=== PATIENT | female | born 1940 | race American Indian/Alaskan Native ===

== ENCOUNTER 2019-10-09 10:25 | Inpatient (IN) | payer MEDICARE ==
[2019-10-09] MEDS ORDERED: ALBUTEROL 2.5 MG/3 ML NEBU IH ONE ×2 (10:43→15:05)
[2019-10-09] MEDS ORDERED: SODIUM CHLORIDE 0.9% 250ML 250 ML IV ONE (10:45)
--- NOTE | 2019-10-09 10:48 | Emergency Department Report ---
ED General Adult HPI - General Chief complaint: Dyspnea/Respdistress Stated complaint: ANIL Time Seen by Provider: 10/09/19 10:31 Source: family, EMS (verbal report received from emergency medical services. EMS documentation not available at time of chart dictation ), RN notes reviewed Mode of arrival: Stretcher Limitations: Altered Mental Status, Physical Limitation - History of Present Illness Initial comments: This is a 79-year-old female. This patient is not known to this provider previously. History obtained primarily by speaking to her daughter, Mrs. Jane Bermeo; [phone], and by speaking to hospice nurse care textile designs sales representative The patient reportedly has a history of dementia. She also appears to have a history of hypertension, and thyroid derangement as well as diabetes. EMS verbally reported that she was DO NOT RESUSCITATE, DO NOT INTUBATE. Apparently, the patient aspirated while at her [facility]. She was found to be hypoxic in the field. There is no indication of trauma. Upon arrival to the emergency room, the patient is awake, moving 4 extremities, but does not follow commands. Her daughter shortly presented thereafterwards. Currently, as per the daughter, the patient is a full code. Otherwise, the daughter is not certain of long-term goals of care, such as chronic supplemental oxygen, or tube feedings. No additional history is available at this time. Patient not able to describe exacerbating or relieving factors. Her hypoxia improved with supplemental oxygen, and high flow nasal cannula therapy. -: This morning Radiation: other Quality: other Consistency: other Improves with: other Worsens with: other - Related Data Home Medications Medication Instructions Recorded Confirmed Last Taken Aspirin EC [Halfprin EC] 81 mg PO DAILY 10/18/14 10/09/19 10/18/14 81 Calcium Carbonate [Calcium] 600 mg PO DAILY 10/18/14 10/09/19 10/18/14 600 Donepezil [Aricept] 10 mg PO DAILY 10/18/14 10/09/19 10/18/14 10 hydroCHLOROthiazide [Hctz] 25 mg PO DAILY 10/18/14 10/09/19 10/18/14 25 metFORMIN [Glucophage] 500 mg PO BID 10/18/14 10/09/19 10/18/14 500 Cetirizine 10mg chew 10 mg PO DAILY 10/09/19 10/09/19 Unknown Lasix TAB 20 mg PO DAILY 10/09/19 10/09/19 Unknown Losartan 25 mg PO DAILY 10/09/19 10/09/19 Unknown Memantine 5 mg PO BID 10/09/19 10/09/19 Unknown Methimazole 10 mg PO TID 10/09/19 10/09/19 Unknown Mirtazapine 15 mg PO HS 10/09/19 10/09/19 Unknown QUEtiapine 25 mg PO HS 10/09/19 10/09/19 Unknown Simvastatin 40 mg PO DAILY 10/09/19 10/09/19 Unknown Allergies Allergy/AdvReac Type Severity Reaction Status Date / Time No Known Allergies Allergy Unverified 10/18/14 13:16 ED Review of Systems ROS: Stated complaint: ANIL Other details as noted in HPI Comment: Unobtainable due to pts medical conditions ED Past Medical Hx - Past Medical History Previous Medical History?: Yes Hx Hypertension: Yes Hx Diabetes: Yes Hx Dementia: Yes Additional medical history: Hyperlipidemia, nonverbal, puree diet - Surgical History Past Surgical History?: Yes Additional Surgical History: Hernia repair, and . - Social History Smoking Status: Never Smoker Substance Use Type: None - Medications Home Medications: Home Medications Medication Instructions Recorded Confirmed Last Taken Type Aspirin EC [Halfprin EC] 81 mg PO DAILY 10/18/14 10/09/19 10/18/14 History 81 Calcium Carbonate [Calcium] 600 mg PO DAILY 10/18/14 10/09/19 10/18/14 History 600 Donepezil [Aricept] 10 mg PO DAILY 10/18/14 10/09/19 10/18/14 History 10 hydroCHLOROthiazide [Hctz] 25 mg PO DAILY 10/18/14 10/09/19 10/18/14 History 25 metFORMIN [Glucophage] 500 mg PO BID 10/18/14 10/09/19 10/18/14 History 500 Cetirizine 10mg chew 10 mg PO DAILY 10/09/19 10/09/19 Unknown History Lasix TAB 20 mg PO DAILY 10/09/19 10/09/19 Unknown History Losartan 25 mg PO DAILY 10/09/19 10/09/19 Unknown History Memantine 5 mg PO BID 10/09/19 10/09/19 Unknown History Methimazole 10 mg PO TID 10/09/19 10/09/19 Unknown History Mirtazapine 15 mg PO HS 10/09/19 10/09/19 Unknown History QUEtiapine 25 mg PO HS 10/09/19 10/09/19 Unknown History Simvastatin 40 mg PO DAILY 10/09/19 10/09/19 Unknown History ED Physical Exam - General Limitations: Physical Limitation General appearance: alert - Head Head exam: Present: atraumatic, normocephalic - Eye Eye exam: Present: normal appearance - ENT ENT exam: Present: mucous membranes moist, normal external ear exam - Neck Neck exam: Present: normal inspection, full ROM. Absent: tenderness, meningismus - Respiratory Respiratory exam: Present: respiratory distress, rhonchi - Cardiovascular Cardiovascular Exam: Present: normal rhythm, tachycardia, normal heart sounds. Absent: systolic murmur, diastolic murmur, rubs, gallop - GI/Abdominal GI/Abdominal exam: Present: soft. Absent: distended, tenderness, guarding, rebound, rigid, pulsatile mass - Extremities Exam Extremities exam: Present: normal inspection, pedal edema, other (2+ pulses no rosa isela in the bilateral upper, lower extremities. There is no long bone tenderness. Musculoskeletal compartments are soft. The pelvis is stable.). Absent: calf tenderness - Back Exam Back exam: Present: normal inspection. Absent: tenderness, CVA tenderness (R), CVA tenderness (L), paraspinal tenderness, vertebral tenderness - Neurological Exam Neurological exam: Present: other (the patient is awake. The patient is moving 4 extremities. The patient has dementia) - Psychiatric Psychiatric exam: Present: other (the patient is nonverbal) - Skin Skin exam: Present: warm, dry, intact, normal color. Absent: rash ED Course Vital Signs 10/09/19 10/09/19 10/09/19 10:37 11:52 11:57 Temperature 98 F 98.8 F Pulse Rate 115 H Pulse Rate [ Bilateral] Respiratory 18 Rate Respiratory Rate [Bilateral ] Blood Pressure 120/57 [left arm] O2 Sat by Pulse 87 100 Oximetry 10/09/19 10/09/19 12:00 12:02 Temperature 98.8 F Pulse Rate 110 H Pulse Rate [ 111 H Bilateral] Respiratory 20 Rate Respiratory 20 Rate [Bilateral ] Blood Pressure 113/57 [left arm] O2 Sat by Pulse 100 Oximetry ED Medical Decision Making - Lab Data Result diagrams: 10/09/19 10:48 10/09/19 10:48 Vital Signs 10/09/19 10/09/19 10/09/19 10:37 11:52 11:57 Temperature 98 F 98.8 F Pulse Rate 115 H Pulse Rate [ Bilateral] Respiratory 18 Rate Respiratory Rate [Bilateral ] Blood Pressure 120/57 [left arm] O2 Sat by Pulse 87 100 Oximetry 10/09/19 10/09/19 12:00 12:02 Temperature 98.8 F Pulse Rate 110 H Pulse Rate [ 111 H Bilateral] Respiratory 20 Rate Respiratory 20 Rate [Bilateral ] Blood Pressure 113/57 [left arm] O2 Sat by Pulse 100 Oximetry Lab Results 10/09/19 10/09/19 10/09/19 Range/Units 10:48 10:48 10:48 WBC (4.5-11.0) K/mm3 RBC (3.65-5.03) M/mm3 Hgb (10.1-14.3) gm/dl Hct (30.3-42.9) % MCV (79-97) fl MCH (28-32) pg MCHC (30-34) % RDW (13.2-15.2) % Plt Count (140-440) K/mm3 Lymph % (Auto) (13.4-35.0) % [place] % (Auto) (0.0-7.3) % Eos % (Auto) (0.0-4.3) % Baso % (Auto) (0.0-1.8) % Lymph # (1.2-5.4) K/mm3 [place] # (0.0-0.8) K/mm3 Eos # (0.0-0.4) K/mm3 Baso # (0.0-0.1) K/mm3 Seg Neutrophils % (40.0-70.0) % Seg Neutrophils # (1.8-7.7) K/mm3 PT (12.2-14.9) Sec. INR (0.87-1.13) APTT (24.2-36.6) Sec. Sodium 149 H (137-145) mmol/L Potassium 3.7 (3.6-5.0) mmol/L Chloride 106.1 (98-107) mmol/L Carbon Dioxide 20 L (22-30) mmol/L Anion Gap 27 mmol/L BUN 45 H (7-17) mg/dL Creatinine 2.0 H (0.7-1.2) mg/dL Estimated GFR 29 ml/min BUN/Creatinine Ratio 23 % Glucose 150 H (65-100) mg/dL Lactic Acid 2.20 H* (0.7-2.0) mmol/L Calcium 10.2 (8.4-10.2) mg/dL Magnesium 2.00 (1.7-2.3) mg/dL Total Bilirubin 0.60 (0.1-1.2) mg/dL AST 18 (5-40) units/L ALT 21 (7-56) units/L Alkaline Phosphatase 81 (35-129) units/L Total Creatine Kinase 91 (30-135) units/L Total Protein 8.0 (6.3-8.2) g/dL Albumin 4.1 (3.9-5) g/dL Albumin/Globulin Ratio 1.1 % TSH 50.740 H (0.270-4.200) mlU/mL 10/09/19 10/09/19 Range/Units 10:48 10:48 WBC 10.1 (4.5-11.0) K/mm3 RBC 4.34 (3.65-5.03) M/mm3 Hgb 13.0 (10.1-14.3) gm/dl Hct 40.7 (30.3-42.9) % MCV 94 (79-97) fl MCH 30 (28-32) pg MCHC 32 (30-34) % RDW 14.6 (13.2-15.2) % Plt Count 423 (140-440) K/mm3 Lymph % (Auto) 23.3 (13.4-35.0) % [place] % (Auto) 7.6 H (0.0-7.3) % Eos % (Auto) 0.3 (0.0-4.3) % Baso % (Auto) 0.8 (0.0-1.8) % Lymph # 2.4 (1.2-5.4) K/mm3 [place]clean # 0.8 (0.0-0.8) K/mm3 Eos # 0.0 (0.0-0.4) K/mm3 Baso # 0.1 (0.0-0.1) K/mm3 Seg Neutrophils % 68.0 (40.0-70.0) % Seg Neutrophils # 6.9 (1.8-7.7) K/mm3 PT 13.3 (12.2-14.9) Sec. INR 1.02 (0.87-1.13) APTT 25.1 (24.2-36.6) Sec. Sodium (137-145) mmol/L Potassium (3.6-5.0) mmol/L Chloride (98-107) mmol/L Carbon Dioxide (22-30) mmol/L Anion Gap mmol/L BUN (7-17) mg/dL Creatinine (0.7-1.2) mg/dL Estimated GFR ml/min BUN/Creatinine Ratio % Glucose (65-100) mg/dL Lactic Acid (0.7-2.0) mmol/L Calcium (8.4-10.2) mg/dL Magnesium (1.7-2.3) mg/dL Total Bilirubin (0.1-1.2) mg/dL AST (5-40) units/L ALT (7-56) units/L Alkaline Phosphatase (35-129) units/L Total Creatine Kinase (30-135) units/L Total Protein (6.3-8.2) g/dL Albumin (3.9-5) g/dL Albumin/Globulin Ratio % TSH (0.270-4.200) mlU/mL - EKG Data 10/09/19 12:34 There is no prior EKG available for comparison. The EKG shows a left axis deviation, left anterior fascicular block, question incomplete right bundle- branch block, motion artifact, QTC prolonged, the EKG is abnormal, there is no prior for comparison, the EKG is not consistent with a STEMI - Radiology Data Radiology results: pending, report reviewed, image reviewed X-ray of the chest is negative for acute disease - Medical Decision Making Differential diagnosis, including not limited to: Hypothyroidism, renal insu fficiency, respiratory failure, dementia, pneumonia, urinary tract infection Assessment and plan: 79-year-old female, profound dementia, poor historian, with hypoxemic respiratory failure, saturating and high 70s on room air, currently protecting her airway at this time, requires initiation of high flow high- humidity nasal cannula therapy. Long discussion have with family to discuss goals of care and advanced directives. Currently, patient is a full code. Family amenable to supplemental oxygen, IV fluids and supportive care at this time. Daughter is specifically instructed to perform endotracheal intubation and chest compressions of necessary. This is witnessed by nurse Deborah. Hospital physician, Dr. Villalba to accept for the aforementioned. Critical Care Time: Yes Critical care time in (mins) excluding proc time.: 35 Critical care attestation.: If time is entered above; I have spent that time in minutes in the direct care of this critically ill patient, excluding procedure time. ED Disposition Clinical Impression: CHEN (acute kidney injury), Respiratory failure, Hypothyroidism, Dementia Disposition: DC-09 OP ADMIT IP TO THIS HOSP Is pt being admited?: Yes Condition: Poor
[2019-10-09 11:21] LABS: Basophils # (Auto) 0.1 K/mm3 (0.0-0.1); Basophils % (Auto) 0.8 % (0.0-1.8); Eosinophils % (Auto) 0.3 % (0.0-4.3); Hematocrit 40.7 % (30.3-42.9); Lymphocytes # (Auto) 2.4 K/mm3 (1.2-5.4); Lymphocytes % (Auto) 23.3 % (13.4-35.0); Mean Corpuscular HGB Conc 32 % (30-34); Mean Corpuscular Volume 94 fl (79-97); Monocytes # (Auto) 0.8 K/mm3 (0.0-0.8); Monocytes % (Auto) 7.6 % (0.0-7.3); Platelet Count 423 K/mm3 (140-440); Red Blood Count 4.34 M/mm3 (3.65-5.03); Red Cell Distribution Width 14.6 % (13.2-15.2)
--- NOTE | 2019-10-09 11:24 | XRay Report ---
CHEST 1 VIEW INDICATION / CLINICAL INFORMATION: sob. Dyspnea. COMPARISON: None available. FINDINGS: SUPPORT DEVICES: None. HEART / MEDIASTINUM: No significant abnormality. LUNGS / PLEURA: No significant pulmonary or pleural abnormality. No pneumothorax. ADDITIONAL FINDINGS: No significant additional findings. IMPRESSION: 1. No acute findings. Signer Name: Juan Jose Morales MD Signed: 10/09/2019 11:19 AM Workstation Name: [id number]
[2019-10-09 11:30] LABS: INR 1.02 (0.87-1.13)
[2019-10-09 11:31] LABS: Partial Thromboplastin Time 25.1 Sec. (24.2-36.6)
[2019-10-09 11:44] LABS: Albumin 4.1 g/dL (3.9-5); Calcium 10.2 mg/dL (8.4-10.2)
[2019-10-09] MEDS ORDERED: SODIUM CHLORIDE 0.9% 500 ML 500 ML IV ONE (11:47)
[2019-10-09] MEDS ORDERED: LEVOTHYROXINE 100 MCG INJ IV STA (12:05)
[2019-10-09] MEDS ORDERED: ALBUTEROL 2.5 MG/3 ML NEBU IH PRN (12:55)
--- NOTE | 2019-10-09 13:01 | History and Physical Report ---
History of Present Illness Chief complaint: She cant breathe History of present illness: 79 YO Female Hospice Care Patient with HTN, DM, Hyperthyroidism, Alzheimers Dementia, Encephalopathy, Nonverbal, Dysphagia, Debility presents to ED for evaluation. Pt is lethargic, using accessory muscles to breathe and unable to provide history. Pt daughter is at bedside during exam and interview and provides history. Pt daughter reports that the patient was in her usual state of health and became short of breath while eating breakfast and aspiration of gastric contents. EMS was notified, and upon arrival the patient was found to be hypoxemic with pulse oximetry in the 80's, as well as retained oral secretions in the oral pharynx. Pt airway was cleared, and the patient placed on supplemental oxygen and transported to [facility]. Pt seen and evaluated in ED and found to have Encephalopathy, Acute Hypoxemic Respiratory Failure as well as history and physical exam findings consistent with Aspiration Pneumonia. Pt placed on supplemental oxygen with mild improvement is pulse oximetry. Pt family revoke hospice benefit at time of admission and request aggressive medical care. Advanced care planning conducted in ED. Pt is a Full code. Pt admitted to [facility] and initiated on Pneumonia Protocol. No further history obtainable. No prior admission for review. All listed medication reconciled at time of admission. Past History Past Medical History: other (see HPI) Past Surgical History: , hernia repair Social history: . denies: smoking, alcohol abuse, prescription drug abuse Family history: hypertension Medications and Allergies Allergies Allergy/AdvReac Type Severity Reaction Status Date / Time No Known Allergies Allergy Unverified 10/18/14 13:16 Home Medications Medication Instructions Recorded Confirmed Last Taken Type Aspirin EC [Halfprin EC] 81 mg PO DAILY 10/18/14 10/09/19 10/18/14 History 81 Calcium Carbonate [Calcium] 600 mg PO DAILY 10/18/14 10/09/19 10/18/14 History 600 Donepezil [Aricept] 10 mg PO DAILY 10/18/14 10/09/19 10/18/14 History 10 hydroCHLOROthiazide [Hctz] 25 mg PO DAILY 10/18/14 10/09/19 10/18/14 History 25 metFORMIN [Glucophage] 500 mg PO BID 10/18/14 10/09/19 10/18/14 History 500 Cetirizine 10mg chew 10 mg PO DAILY 10/09/19 10/09/19 Unknown History Lasix TAB 20 mg PO DAILY 10/09/19 10/09/19 Unknown History Losartan 25 mg PO DAILY 10/09/19 10/09/19 Unknown History Memantine 5 mg PO BID 10/09/19 10/09/19 Unknown History Methimazole 10 mg PO TID 10/09/19 10/09/19 Unknown History Mirtazapine 15 mg PO HS 10/09/19 10/09/19 Unknown History QUEtiapine 25 mg PO HS 10/09/19 10/09/19 Unknown History Simvastatin 40 mg PO DAILY 10/09/19 10/09/19 Unknown History Active Meds: Active Medications Albuterol (Proventil) 2.5 mg IH Q3HRT PRN PRN Reason: Shortness Of Breath Ceftriaxone Sodium (Rocephin/Ns 2 Gm/100 Ml) 2 gm in 100 mls @ 200 mls/hr IV Q24HR LEONARDO; Protocol Azithromycin 500 mg/ Sodium (Chloride) 250 mls @ 250 mls/hr IV Q24HR LEONARDO; Protocol Metronidazole (Flagyl 500 Mg/100 Ml) 500 mg in 100 mls @ 100 mls/hr IV Q8HR LEONARDO; Protocol Sodium Chloride (Sodium Chloride Flush Syringe 10 Ml) 10 ml IV BID LEONARDO Sodium Chloride (Sodium Chloride Flush Syringe 10 Ml) 10 ml IV PRN PRN PRN Reason: LINE FLUSH Review of Systems ROS unobtainable: due to mental status Exam - Constitutional Vitals: Temp Pulse Resp BP Pulse Ox 98.8 F 111 H 20 113/57 100 10/09/19 12:00 10/09/19 12:02 10/09/19 12:02 10/09/19 12:00 10/09/19 12:00 General appearance: Present: mild distress - EENT Eyes: Present: PERRL ENT: hearing intact, clear oral mucosa - Neck Neck: Present: supple, normal ROM - Respiratory Respiratory effort: normal Respiratory: bilateral: diminished, rhonchi - Cardiovascular Heart Sounds: Present: S1 & S2. Absent: rub, click - Extremities Extremities: pulses symmetrical, No edema Peripheral Pulses: within normal limits - Abdominal General gastrointestinal: Present: soft, non-tender, non-distended, normal bowel sounds Female genitourinary: Present: normal - Integumentary Integumentary: Present: clear, warm, dry - Musculoskeletal Musculoskeletal: generalized weakness - Psychiatric Psychiatric: no appropriate mood/affect, no intact judgment & insight, no memory intact - Neurologic Neurologic: CNII-XII intact, moves all extremities, no gait normal Results - Labs CBC & Chem 7: 10/09/19 10:48 10/09/19 10:48 Labs: Abnormal lab results 10/09/19 10/09/19 10/09/19 Range/Units 10:48 10:48 10:48 [place] % (Auto) (0.0-7.3) % Sodium 149 H (137-145) mmol/L Carbon Dioxide 20 L (22-30) mmol/L BUN 45 H (7-17) mg/dL Creatinine 2.0 H (0.7-1.2) mg/dL Glucose 150 H (65-100) mg/dL Lactic Acid 2.20 H* (0.7-2.0) mmol/L TSH 50.740 H (0.270-4.200) mlU/mL Free T4 (0.76-1.46) ng/dL 10/09/19 10/09/19 Range/Units 10:48 10:48 [place] % (Auto) 7.6 H (0.0-7.3) % Sodium (137-145) mmol/L Carbon Dioxide (22-30) mmol/L BUN (7-17) mg/dL Creatinine (0.7-1.2) mg/dL Glucose (65-100) mg/dL Lactic Acid (0.7-2.0) mmol/L TSH (0.270-4.200) mlU/mL Free T4 0.40 L (0.76-1.46) ng/dL Assessment and Plan - Patient Problems (1) Aspiration pneumonia Current Visit: Yes Status: Acute Qualifiers: Lung location: unspecified part of lung Plan to address problem: Pneumonia Protocol: Chest X ray, IV antibiotic therapy, IVF resuscitation therapy, CBC, CMP, Blood Cultures, Supplemental oxygen, NIPPV as clinically indicated, (2) Hyperthyroidism Current Visit: Yes Status: Acute Plan to address problem: continue methimazole, supportive care. (3) Encephalopathy Current Visit: Yes Status: Acute Plan to address problem: CT head, neuro check, aspiration precautions, (4) Acidosis Current Visit: Yes Status: Acute Plan to address problem: IVF resuscitation therapy, repeat BMP (5) CHEN (acute kidney injury) Current Visit: Yes Status: Acute Plan to address problem: IVF resuscitation therapy, monitor uop q shift, bmp in am to monitor serum creatnine (6) Respiratory failure Current Visit: Yes Status: Acute Qualifiers: Chronicity: acute Respiratory failure complication: hypoxia Qualified Code(s): J96.01 - Acute respiratory failure with hypoxia Plan to address problem: Supplemental oxygen, nebulizer therapy, NIPPV as clinically indicated, chest x ray, pulse oximetry, NIPPV as clinically indicated, (7) Advance care planning Current Visit: Yes Status: Acute Plan to address problem: Pt family revoked hospice benefit and request aggressive medical care. Pt code states discussed: Pt is Full Code. Poor prognosis discussed with daughter. Pt daughter acknowledges understanding and agreement with care plan. +30 minutes (8) DVT prophylaxis Current Visit: Yes Status: Acute Plan to address problem: SCD to BLE while in bed, prophylactic heparin
[2019-10-09 13:02] LABS: Bilirubin,Urine NEG (Negative); Blood,Urine NEG (Negative); Color,Urine Yellow (Yellow); Mucus,Urine FEW /HPF; Urobilinogen,Urine < 2.0 mg/dL (<2.0)
[2019-10-09] MEDS ORDERED: METHIMAZOLE 10 MG PO SCH (14:00)
[2019-10-09] MEDS ORDERED: DEXTROSE 50% IN WATER (25GM) 50 ML SYRINGE IV PRN (14:07)
[2019-10-09] MEDS ORDERED: metroNIDAZOLE/NS 500 MG/100 ML 500 MG/100 ML BAG IV ONE (14:07)
[2019-10-09] MEDS: metroNIDAZOLE/NS 500 MG/100 ML 500 MG/100 ML BAG IV SCH ×2 (15:05→22:20)
[2019-10-09] MEDS: INSULIN LISPRO 100 UNIT/ML SUB-Q SCH ×2 (17:14→22:02)
--- NOTE | 2019-10-09 17:39 | Event Note ---
Date: 10/09/19 Notified by Nursing staff, that patient daughter wishes to make patient DNR. DNR signed and placed on chart
[2019-10-09] MEDS ORDERED: QUETIAPINE 25 MG PO SCH (22:00)
[2019-10-09] MEDS ORDERED: NON-FORMULARY EACH (Memantine 5 MG) PO SCH (22:00)
[2019-10-09] MEDS ORDERED: MIRTAZAPINE 15 MG SOLUTAB PO SCH (22:00)
[2019-10-09] MEDS ORDERED: MIRTAZAPINE 15 MG PO SCH (22:00)
[2019-10-09] MEDS: methIMAzole 5 MG TAB PO SCH (22:19)
[2019-10-09] MEDS: HEPARIN 5,000 UNIT/1 ML VIAL SUB-Q SCH (22:20)
[2019-10-09] MEDS: QUEtiapine 25 MG TAB PO SCH (22:23)
[2019-10-09] MEDS: MEMANTINE 5 MG TAB PO SCH (22:23)
[2019-10-10 05:55] LABS: Basophils # (Auto) 0.1 K/mm3 (0.0-0.1); Basophils % (Auto) 0.6 % (0.0-1.8); Eosinophils % (Auto) 0.4 % (0.0-4.3); Hematocrit 36.1 % (30.3-42.9); Hemoglobin 11.6 gm/dl (10.1-14.3); Lymphocytes # (Auto) 1.9 K/mm3 (1.2-5.4); Lymphocytes % (Auto) 17.6 % (13.4-35.0); Mean Corpuscular HGB Conc 32 % (30-34); Mean Corpuscular Volume 94 fl (79-97); Monocytes # (Auto) 0.7 K/mm3 (0.0-0.8); Monocytes % (Auto) 6.9 % (0.0-7.3); Platelet Count 361 K/mm3 (140-440); Red Blood Count 3.84 M/mm3 (3.65-5.03); Red Cell Distribution Width 14.5 % (13.2-15.2)
[2019-10-10 06:20] LABS: Calcium 9.6 mg/dL (8.4-10.2)
[2019-10-10] MEDS: metroNIDAZOLE/NS 500 MG/100 ML 500 MG/100 ML BAG IV SCH ×3 (07:02→22:27)
[2019-10-10] MEDS ORDERED: CETIRIZINE 10 MG PO SCH (10:00)
[2019-10-10] MEDS ORDERED: CALCIUM CARBONATE 1250 MG TAB PO SCH (10:00)
[2019-10-10] MEDS ORDERED: LOSARTAN 25 MG TAB PO SCH (10:00)
[2019-10-10] MEDS ORDERED: NON-FORMULARY EACH (Simvastatin 40 MG) PO SCH (10:00)
[2019-10-10] MEDS ORDERED: NON-FORMULARY EACH (Losartan 25 MG) PO SCH (10:00)
[2019-10-10] MEDS: cefTRIAXone/NS 2 GM/100 ML 2 GM/100 ML BAG IV SCH (11:10)
[2019-10-10] MEDS: QUEtiapine 25 MG TAB PO SCH ×2 (11:11→11:24)
[2019-10-10] MEDS: ASPIRIN EC 81 MG TAB PO SCH ×2 (11:11→11:27)
[2019-10-10] MEDS: LORATADINE (NF) 10 MG TAB PO SCH ×2 (11:13→11:29)
[2019-10-10] MEDS: HEPARIN 5,000 UNIT/1 ML VIAL SUB-Q SCH (11:13)
[2019-10-10] MEDS: MEMANTINE 5 MG TAB PO SCH ×3 (11:14→22:23)
[2019-10-10] MEDS: hydroCHLOROthiazide 25 MG TAB PO SCH ×2 (11:14→11:28)
[2019-10-10] MEDS: DONEPEZIL 10 MG TAB PO SCH ×2 (11:14→11:27)
[2019-10-10] MEDS: CALCIUM CARBONATE 1250 MG TAB PO SCH (11:15)
[2019-10-10] MEDS: PRAVASTATIN 80 MG TAB PO SCH (11:15)
[2019-10-10] MEDS: methIMAzole 5 MG TAB PO SCH ×2 (11:17→22:24)
[2019-10-10] MEDS: INSULIN LISPRO 100 UNIT/ML SUB-Q SCH ×2 (11:20→11:55)
[2019-10-10] MEDS: AZITHROMYCIN 500 MG in SODIUM CHLORIDE 0.9% 250ML 250 ML IV SCH (11:37)
--- NOTE | 2019-10-10 14:59 | Progress Note ---
Assessment and Plan Assessment and plan: 79-year-old woman who was sent from assisted living facility. They related that she had been choking and was having trouble breathing. Past medical history; dementia, hypertension, thyroid disorder, diabetes, she is DNR at her assisted living facility Chest x-ray no acute findings Hyperthyroidism tfts show elevated TSH at 50 and low free T4 at 0.4. When patient able to tolerate p.o., her methimazole dose will be reduced acute metabolic encephalopathy supportive care obtain EEG, CTH and MRI, neuro consult CHEN/hyponatremia Continue D5w Renal function improving acute hypoxic Respiratory failure cont venti mask repeat CXR, was suspected to have aspiration pneumonia by admitting physician. Continue antibiotics for now, obtain CT chest if CXR is again neg DVT prophylaxis with Lovenox History Interval history: Review of systems Constitutional: No fevers, no malaise, no joint pains CVS: No chest pain, no orthopnea, no pedal edema GI: No abdominal pain, no diarrhea, no vomiting, no constipation Respiratory: , has had rhoncorus breath sounds, no cough, remains on [place] [facility] Physical - Physical exam Narrative exam: General.: Appears well, no distress, nontoxic HEENT: dry mucus membranes Neck: supple Cardiac: S1-S2 heard Lungs: rhonchi Abdomen: soft , nontender, nondistended, bowel sounds positive Extremities: no edema clubbing or cyanosis Skin: no rash or lesions Neurologic: opens eyes, otherwise minimally arousable, appears comfortable Psych: calm - Constitutional Vitals: Temp Pulse Resp BP Pulse Ox 98.1 F 59 L 13 93/51 100 10/10/19 04:00 10/10/19 10:00 10/10/19 04:00 10/10/19 10:00 10/10/19 04:00 General appearance: Present: mild distress Results - Labs CBC & Chem 7: 10/10/19 05:41 10/10/19 05:41 Labs: Laboratory Last Values WBC 10.8 K/mm3 (4.5-11.0) 10/10/19 05:41 RBC 3.84 M/mm3 (3.65-5.03) 10/10/19 05:41 Hgb 11.6 gm/dl (10.1-14.3) 10/10/19 05:41 Hct 36.1 % (30.3-42.9) 10/10/19 05:41 MCV 94 fl (79-97) 10/10/19 05:41 MCH 30 pg (28-32) 10/10/19 05:41 MCHC 32 % (30-34) 10/10/19 05:41 RDW 14.5 % (13.2-15.2) 10/10/19 05:41 Plt Count 361 K/mm3 (140-440) 10/10/19 05:41 Lymph % (Auto) 17.6 % (13.4-35.0) 10/10/19 05:41 Snyder % (Auto) 6.9 % (0.0-7.3) 10/10/19 05:41 Eos % (Auto) 0.4 % (0.0-4.3) 10/10/19 05:41 Baso % (Auto) 0.6 % (0.0-1.8) 10/10/19 05:41 Lymph # 1.9 K/mm3 (1.2-5.4) 10/10/19 05:41 Snyder # 0.7 K/mm3 (0.0-0.8) 10/10/19 05:41 Eos # 0.0 K/mm3 (0.0-0.4) 10/10/19 05:41 Baso # 0.1 K/mm3 (0.0-0.1) 10/10/19 05:41 Seg Neutrophils % 74.5 % (40.0-70.0) H 10/10/19 05:41 Seg Neutrophils # 8.1 K/mm3 (1.8-7.7) H 10/10/19 05:41 PT 13.3 Sec. (12.2-14.9) 10/09/19 10:48 INR 1.02 (0.87-1.13) 10/09/19 10:48 APTT 25.1 Sec. (24.2-36.6) 10/09/19 10:48 Sodium 152 mmol/L (137-145) H 10/10/19 05:41 Potassium 4.1 mmol/L (3.6-5.0) 10/10/19 05:41 Chloride 109.3 mmol/L (98-107) H 10/10/19 05:41 Carbon Dioxide 24 mmol/L (22-30) 10/10/19 05:41 Anion Gap 23 mmol/L 10/10/19 05:41 BUN 35 mg/dL (7-17) H 10/10/19 05:41 Creatinine 1.3 mg/dL (0.7-1.2) H 10/10/19 05:41 Estimated GFR 48 ml/min 10/10/19 05:41 BUN/Creatinine Ratio 27 % 10/10/19 05:41 Glucose 125 mg/dL (65-100) H 10/10/19 05:41 POC Glucose 130 (70-105) H 10/09/19 23:06 Lactic Acid 2.10 mmol/L (0.7-2.0) H* 10/09/19 16:01 Calcium 9.6 mg/dL (8.4-10.2) 10/10/19 05:41 Magnesium 2.00 mg/dL (1.7-2.3) 10/09/19 10:48 Total Bilirubin 0.60 mg/dL (0.1-1.2) 10/09/19 10:48 AST 18 units/L (5-40) 10/09/19 10:48 ALT 21 units/L (7-56) 10/09/19 10:48 Alkaline Phosphatase 81 units/L (35-129) 10/09/19 10:48 Total Creatine Kinase 91 units/L (30-135) 10/09/19 10:48 Total Protein 8.0 g/dL (6.3-8.2) 10/09/19 10:48 Albumin 4.1 g/dL (3.9-5) 10/09/19 10:48 Albumin/Globulin Ratio 1.1 % 10/09/19 10:48 TSH 50.740 mlU/mL (0.270-4.200) H 10/09/19 10:48 Free T4 0.40 ng/dL (0.76-1.46) L 10/09/19 10:48 Urine Color Yellow (Yellow) 10/09/19 12:00 Urine Turbidity Slightly-cloudy (Clear) 10/09/19 12:00 Urine pH 5.0 (5.0-7.0) 10/09/19 12:00 Ur Specific [place] 1.017 (1.003-1.030) 10/09/19 12:00 Urine Protein 30 mg/dl mg/dL (Negative) 10/09/19 12:00 Urine Glucose (UA) Neg mg/dL (Negative) 10/09/19 12:00 Urine Ketones Neg mg/dL (Negative) 10/09/19 12:00 Urine Blood Neg (Negative) 10/09/19 12:00 Urine Nitrite Neg (Negative) 10/09/19 12:00 Urine Bilirubin Neg (Negative) 10/09/19 12:00 Urine Urobilinogen < 2.0 mg/dL (<2.0) 10/09/19 12:00 Ur Leukocyte Esterase Neg (Negative) 10/09/19 12:00 Urine WBC (Auto) 1.0 /HPF (0.0-6.0) 10/09/19 12:00 Urine RBC (Auto) 2.0 /HPF (0.0-6.0) 10/09/19 12:00 U Epithel Cells (Auto) 4.0 /HPF (0-13.0) 10/09/19 12:00 Urine Mucus Few /HPF 10/09/19 12:00 Active Medications - Current Medications Current Medications: Generic Name Dose Route Start Last Admin Trade Name Freq PRN Reason Stop Dose Admin Albuterol 2.5 mg 10/09/19 12:55 Proventil IH Q3HRT PRN Shortness Of Breath Aspirin 81 mg 10/10/19 10:00 10/10/19 11:27 Halfprin Ec PO Not Given DAILY LEONARDO Calcium Carbonate/Glycine 1,250 mg 10/10/19 10:00 10/10/19 11:15 Oscal PO 1,250 mg QDAY LEONARDO Administration Dextrose 50 ml 10/09/19 14:07 D50w (25gm) Syringe IV Q30MIN PRN Hypoglycemia Protocol Donepezil HCl 10 mg 10/10/19 10:00 10/10/19 11:27 Aricept PO Not Given DAILY LEONARDO Heparin Sodium (Porcine) 5,000 unit 10/09/19 22:00 10/10/19 11:13 Heparin SUB-Q 5,000 unit Q12HR LEONARDO Administration Hydrochlorothiazide 25 mg 10/10/19 10:00 10/10/19 11:28 Hctz PO Not Given DAILY LEONARDO Ceftriaxone Sodium 2 gm in 100 mls @ 200 mls/hr 10/10/19 10:00 10/10/19 11:10 Rocephin/Ns 2 Gm/100 Ml IV 200 mls/hr Q24HR LEONARDO Administration Protocol Azithromycin 500 mg/ Sodium 250 mls @ 250 mls/hr 10/10/19 10:00 10/10/19 11:37 Chloride IV 250 mls/hr Q24HR LEONARDO Administration Protocol Metronidazole 500 mg in 100 mls @ 100 mls/hr 10/09/19 14:00 10/10/19 07:02 Flagyl 500 Mg/100 Ml IV 100 mls/hr Q8HR LEONARDO Administration Protocol Dextrose 1,000 mls @ 100 mls/hr 10/10/19 11:00 D5w IV DIRECT [facility] Insulin Human Lispro 0 unit 10/09/19 16:30 10/10/19 11:20 Humalog SUB-Q Not Given ACHS [facility] Protocol Loratadine 10 mg 10/10/19 10:00 10/10/19 11:29 Claritin PO Not Given DAILY [facility] Losartan Potassium 25 mg 10/10/19 10:00 10/10/19 10:00 Cozaar PO Not Given QDAY [facility] Memantine 5 mg 10/09/19 22:00 10/10/19 11:22 Memantine PO Not Given BID LEONARDO Methimazole 5 mg 10/10/19 22:00 Tapazole PO Q8HR [facility] Mirtazapine 15 mg 10/09/19 22:00 10/09/19 22:23 Remeron Solutab PO Not Given QHS [facility] Pravastatin Sodium 80 mg 10/10/19 10:00 10/10/19 11:15 Pravachol PO 80 mg QDAY [facility] Administration Quetiapine Fumarate 25 mg 10/09/19 22:00 10/10/19 11:24 Seroquel PO Not Given BID LEONARDO Sodium Chloride 10 ml 10/09/19 22:00 10/10/19 11:16 Sodium Chloride Flush Syringe 10 Ml IV 10 ml BID LEONARDO Administration Sodium Chloride 10 ml 10/09/19 12:55 Sodium Chloride Flush Syringe 10 Ml IV PRN PRN LINE FLUSH Nutrition/Malnutrition Assess - Dietary Evaluation Nutrition/Malnutrition Findings: Nutrition Notes Start: 10/10/19 10:31 Freq: Status: Active Protocol: Document 10/10/19 10:32 LM (Rec: 10/10/19 10:55 LM [id number]) Nutrition Notes Need for Assessment generated from: implementation coordinator Initial or Follow up Assessment Current Diagnosis Acute Kidney Injury,Decubitus( Pressure Ulcer),Diabetes, Hypertension,Respiratory Failure Other Pertinent Diagnosis Sacral wound, dementia, encephalopathy, debility, pneu Current Diet NPO Labs/Tests Na 152 BUN 35 Cr 1.3 BG 125 Pertinent Medications Reviewed Height 4 ft 6 in Weight 60.2 kg [place] Body Weight (kg) 31.81 BMI 32.0 Subjective/Other Information RN screen for MST, difficulty chewing, and skin risk. Kiet score of 12, pt with sacral wound. Pt non verbal and no family present at time of visit to obtain information. Pt NPO. Pt with chewing and swallowing difficulties documented in chart and pt was unable to complete swallow eval. Burn Absent Trauma Absent Difficulty In Swallowing,Chewing Minimum of two criteria No physical signs of malnutrition #2 Nutrition Diagnosis Inadequate oral intake Etiology pt with possible chewing and swallowing difficulties, unable to complete swallow eval As Evidenced by Signs and Symptoms pt NPO #1 Nutrition Diagnosis Increased nutrient needs ( specify in comment below) Comments: protein Etiology wound healing As Evidenced by Signs and Symptoms sacral wound Is patient on ventilator? No Is Patient Ambulatory and/or Out of Bed No REE-([facility]-confined to bed) [phone] Calculation Used for Recommendations [facility] Additional Notes Protein: 37-69g (0.8-1.5g/kg) AdjBw 46kg pt with CHEN and wound Fluid: 1 ml/kcal or per MD Nutrition Intervention Change Diet Order: Diet advancement when medically feasible Goal #1 Diet advancement Anticipated Discharge Needs: unable to determine at this time Follow-Up By: 10/12/19 Additional Comments F/U for diet advancent, MST screen if family present
--- NOTE | 2019-10-10 16:27 | XRay Report ---
CHEST 1 VIEW INDICATION / CLINICAL INFORMATION: hypoxia. COMPARISON: 10/09/2019 FINDINGS: SUPPORT DEVICES: None. HEART / MEDIASTINUM: No significant abnormality. LUNGS / PLEURA: No significant pulmonary or pleural abnormality.. No pneumothorax. ADDITIONAL FINDINGS: No significant additional findings. IMPRESSION: 1. No acute findings. Signer Name: Anthony Lamar MD Signed: 10/10/2019 4:23 PM Workstation Name: [id number]
--- NOTE | 2019-10-10 18:48 | Cat Scan Report ---
CT head/brain wo con INDICATION / CLINICAL INFORMATION: 79 years Female; ams. TECHNIQUE: Routine CT head without contrast. All CT scans at this location are performed using CT dos e reduction for ALARA by means of automated exposure control. COMPARISON: None. FINDINGS: BRAIN / INTRACRANIAL CONTENTS: There is advanced to cerebral atrophy with associated prominence of th e ventricular system. There is also moderate cerebral white matter disease most consistent with micro vascular angiopathy at. There is no clear CT evidence of acute intracranial hemorrhage or significant mass effect. The atrophic changes appear to most notably involving the temporal lobes at. ORBITS: No significant abnormality of visualized orbits. SINUSES / MASTOIDS: No significant abnormality the visualized paranasal sinuses or mastoid air cells. CRANIOCERVICAL JUNCTION: No significant abnormality. ADDITIONAL FINDINGS: There is mild incidental hyperostosis frontalis interna. The calvarium appears i ntact. IMPRESSION: 1. There is advanced to cerebral atrophy and moderate microvascular angiopathy as described without C T evidence of acute intracranial hemorrhage. Signer Name: Damion Leon MD Signed: 10/10/2019 6:44 PM Workstation Name: [id number]
--- NOTE | 2019-10-10 18:59 | Consultation ---
History of Present Illness Consult date: 10/10/19 Reason for Consult: Altered mental status Chief complaint: Altered mental status History of present illness: Patient is a 79 y/o woman w/ a h/o dementia, HTN, hyperthyroidism, DM, HLD. Patient was admitted due to aspiration, which occurred as she was eating yesterday. EMS arrived, and was able to clear patient's airway. She was brought to [facility] for further management. At baseline, patient reportedly is nonverbal, is only able to feed herself, however requires assistance with all other ADLs. 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 Past History Past Medical History: other (see HPI) Past Surgical History: , hernia repair Social history: . denies: smoking, alcohol abuse, prescription drug abuse Family history: hypertension Medications and Allergies Allergies Allergy/AdvReac Type Severity Reaction Status Date / Time No Known Allergies Allergy Unverified 10/18/14 13:16 Home Medications Medication Instructions Recorded Confirmed Last Taken Type Aspirin EC [Halfprin EC] 81 mg PO DAILY 10/18/14 10/09/19 10/18/14 History 81 Calcium Carbonate [Calcium] 600 mg PO DAILY 10/18/14 10/09/19 10/18/14 History 600 Donepezil [Aricept] 10 mg PO DAILY 10/18/14 10/09/19 10/18/14 History 10 hydroCHLOROthiazide [Hctz] 25 mg PO DAILY 10/18/14 10/09/19 10/18/14 History 25 metFORMIN [Glucophage] 500 mg PO BID 10/18/14 10/09/19 10/18/14 History 500 Cetirizine 10mg chew 10 mg PO DAILY 10/09/19 10/09/19 Unknown History Lasix TAB 20 mg PO DAILY 10/09/19 10/09/19 Unknown History Losartan 25 mg PO DAILY 10/09/19 10/09/19 Unknown History Memantine 5 mg PO BID 10/09/19 10/09/19 Unknown History Methimazole 10 mg PO TID 10/09/19 10/09/19 Unknown History Mirtazapine 15 mg PO HS 10/09/19 10/09/19 Unknown History QUEtiapine 25 mg PO HS 10/09/19 10/09/19 Unknown History Simvastatin 40 mg PO DAILY 10/09/19 10/09/19 Unknown History Active Meds: Active Medications Albuterol (Proventil) 2.5 mg IH Q3HRT PRN PRN Reason: Shortness Of Breath Aspirin (Halfprin Ec) 81 mg PO DAILY [facility] Last Admin: 10/10/19 11:27 Dose: Not Given Documented by: Calcium Carbonate/Glycine (Oscal) 1,250 mg PO QDAY [facility] Last Admin: 10/10/19 11:15 Dose: 1,250 mg Documented by: Dextrose (D50w (25gm) Syringe) 50 ml IV Q30MIN PRN; Protocol PRN Reason: Hypoglycemia Donepezil HCl (Aricept) 10 mg PO DAILY [facility] Last Admin: 10/10/19 11:27 Dose: Not Given Documented by: Enoxaparin Sodium (Enoxaparin) 30 mg SUB-Q QDAY@2200 LEONARDO Ceftriaxone Sodium (Rocephin/Ns 2 Gm/100 Ml) 2 gm in 100 mls @ 200 mls/hr IV Q24HR [facility]; Protocol Last Admin: 10/10/19 11:10 Dose: 200 mls/hr Documented by: Azithromycin 500 mg/ Sodium (Chloride) 250 mls @ 250 mls/hr IV Q24HR LEONARDO; Protocol Last Admin: 10/10/19 11:37 Dose: 250 mls/hr Documented by: Metronidazole (Flagyl 500 Mg/100 Ml) 500 mg in 100 mls @ 100 mls/hr IV Q8HR LEONARDO; Protocol Last Admin: 10/10/19 15:54 Dose: 100 mls/hr Documented by: Dextrose (D5w) 1,000 mls @ 100 mls/hr IV DIRECT LEONARDO Insulin Human Lispro (Humalog) 0 unit SUB-Q ACHS [facility]; Protocol Last Admin: 10/10/19 11:55 Dose: Not Given Documented by: Loratadine (Claritin) 10 mg PO DAILY [facility] Last Admin: 10/10/19 11:29 Dose: Not Given Documented by: Memantine (Memantine) 5 mg PO BID [facility] Last Admin: 10/10/19 11:22 Dose: Not Given Documented by: Methimazole (Tapazole) 5 mg PO Q8HR [facility] Pravastatin Sodium (Pravachol) 80 mg PO QDAY [facility] Last Admin: 10/10/19 11:15 Dose: 80 mg Documented by: Sodium Chloride (Sodium Chloride Flush Syringe 10 Ml) 10 ml IV BID LEONARDO Last Admin: 10/10/19 11:16 Dose: 10 ml Documented by: Sodium Chloride (Sodium Chloride Flush Syringe 10 Ml) 10 ml IV PRN PRN PRN Reason: LINE FLUSH Review of Systems ROS unobtainable: due to mental status Physical Examination - Vital Signs Vital Signs: Vital Signs Temp Pulse Resp BP Pulse Ox 98 F 115 H 18 120/57 87 10/09/19 10:37 10/09/19 10:37 10/09/19 10:37 10/09/19 10:37 10/09/19 10:37 - Physical Exam Narrative exam: Patient is lethargic, opens eyes to tactile stimulus. Does not follow commands. PERRL. Squeezes hand to hand. W/d to pain in all extremities. Spontaneous anti- gravity movement noted in all extremities. Reflexes 2+ throughout. - Constitutional General appearance: comfortable - EENT EENT: Present: ATNC, PERRL, mucous membranes moist - Respiratory Respiratory: Present: decreased breath sounds - Cardiovascular Cardiovascular: Present: regular rate, normal S1, normal S2 Extremities: Present: no clubbing, cyanosis, no inflammation - Gastrointestinal Gastrointestinal: Present: normoactive bowel sounds, soft, non-tender - Integumentary Integumentary: Present: normal - Musculoskeletal Musculoskeletal: Present: no fluid collection Results - Laboratory Findings CBC and BMP: 10/10/19 05:41 10/10/19 05:41 Abnormal Lab Findings: Abnormal Labs 10/09/19 10/09/19 10/09/19 10:48 10:48 10:48 Ashley % (Auto) Seg Neutrophils % Seg Neutrophils # Sodium 149 H Chloride Carbon Dioxide 20 L BUN 45 H Creatinine 2.0 H Glucose 150 H POC Glucose Lactic Acid 2.20 H* TSH 50.740 H Free T4 10/09/19 10/09/19 10/09/19 10:48 10:48 13:18 Ashley % (Auto) 7.6 H Seg Neutrophils % Seg Neutrophils # Sodium Chloride Carbon Dioxide BUN Creatinine Glucose POC Glucose Lactic Acid 2.60 H* TSH Free T4 0.40 L 10/09/19 10/09/19 10/09/19 16:01 17:21 23:06 Ashley % (Auto) Seg Neutrophils % Seg Neutrophils # Sodium Chloride Carbon Dioxide BUN Creatinine Glucose POC Glucose 124 H 130 H Lactic Acid 2.10 H* TSH Free T4 10/10/19 10/10/19 10/10/19 05:41 05:41 15:59 Ashley % (Auto) Seg Neutrophils % 74.5 H Seg Neutrophils # 8.1 H Sodium 152 H Chloride 109.3 H Carbon Dioxide BUN 35 H Creatinine 1.3 H Glucose 125 H POC Glucose 112 H Lactic Acid TSH Free T4 Assessment and Plan Patient is a 79 y/o woman w/ a h/o dementia, HTN, hyperthyroidism, DM, HLD, who p/w aspiration when eating. According to the patient's clinical findings, it is likely that she has metabolic encephalopathy. In support of this, patient has been found to have CHEN, acidosis, respiratory failure on admission. Plan: 1. Metabolic encephalopathy: - In setting of baseline advanced dementia, and found to have respiratory failure, aspiration, CHEN, acidosis. - CT head: no acute abnormalities - Continue to correct metabolic abnormalities per primary team - Will continue to monitor neurologic status Thank you for allowing me to take part in the care of this patient. Charly Santizo MD Neurology
[2019-10-10] MEDS ORDERED: ENOXAPARIN 40 MG/0.4 ML INJ SUB-Q SCH (22:00)
[2019-10-10] MEDS: ENOXAPARIN 30 MG/0.3 ML INJ SUB-Q SCH (22:27)
[2019-10-11] MEDS: INSULIN LISPRO 100 UNIT/ML SUB-Q SCH ×5 (01:12→22:46)
[2019-10-11] MEDS: methIMAzole 5 MG TAB PO SCH ×3 (06:40→22:45)
[2019-10-11] MEDS: metroNIDAZOLE/NS 500 MG/100 ML 500 MG/100 ML BAG IV SCH ×3 (07:43→22:47)
[2019-10-11] MEDS: cefTRIAXone/NS 2 GM/100 ML 2 GM/100 ML BAG IV SCH (10:45)
--- NOTE | 2019-10-11 10:49 | Progress Note ---
Assessment and Plan Assessment and plan: 79-year-old woman who was sent from assisted living facility. They related that she had been choking and was having trouble breathing. Past medical history; dementia, hypertension, thyroid disorder, diabetes, she is DNR at her assisted living facility Chest x-ray no acute findings Hyperthyroidism tfts show elevated TSH at 50 and low free T4 at 0.4. When patient able to tolerate p.o., her methimazole dose will be reduced acute metabolic encephalopathy supportive care, CT head neg, given dementia- daughter is not interested in MRI, she has refused obtain EEG, neuro consult appreciated, likely metabolic due to dehydration at baseline, she is non verbal, but is able to eat and is fully dependent, currently she only opens eyes occasionally and has not woken up Bruxism Ativan as needed CHEN/hyponatremia Continue D5w Renal function improving acute hypoxic Respiratory failure now weaned to NC repeat CXR is again negative, was suspected to have aspiration pneumonia by admitting physician, and assisted living facility believe that she had choked on food supporting the diagnosis of aspiration. Continue antibiotics for now, obtain CT chest, pulm consult DVT prophylaxis with Lovenox History Interval history: Neuro; apparently when the patient is alone in her room she opens her eyes and watches TV. And myself or the nurse enters the room. The patient closes her eyes, refuses to open her eyes or communicate, she has been grinding her teeth all day Review of systems Constitutional: No fevers, no malaise, no joint pains CVS: No chest pain, no orthopnea, no pedal edema GI: No abdominal pain, no diarrhea, no vomiting, no constipation Respiratory: , has had rhoncorus breath sounds, no cough, remains on [facility] Hospitalist Physical - Physical exam Narrative exam: General.: Appears well, no distress, nontoxic Wet sounds in her throat, appears to have trouble swallowing her own saliva HEENT: dry mucus membranes Neck: supple Cardiac: S1-S2 heard Lungs: rhonchi Abdomen: soft , nontender, nondistended, bowel sounds positive Extremities: no edema clubbing or cyanosis Skin: no rash or lesions Neurologic: Refuses to open eyes, when I tried to manually lift her eyelid, she squeezes her eyes shut. She is grinding her teeth, she is not responding to my voice, does not obey commands Psych: calm - Constitutional Vitals: Temp Pulse Resp BP Pulse Ox 98.2 F 58 L 14 93/51 99 10/11/19 04:00 10/11/19 04:00 10/11/19 04:00 10/10/19 10:00 10/11/19 08:16 General appearance: Present: mild distress Results - Labs CBC & Chem 7: 10/10/19 05:41 10/11/19 10:20 Labs: Laboratory Last Values WBC 10.8 K/mm3 (4.5-11.0) 10/10/19 05:41 RBC 3.84 M/mm3 (3.65-5.03) 10/10/19 05:41 Hgb 11.6 gm/dl (10.1-14.3) 10/10/19 05:41 Hct 36.1 % (30.3-42.9) 10/10/19 05:41 MCV 94 fl (79-97) 10/10/19 05:41 MCH 30 pg (28-32) 10/10/19 05:41 MCHC 32 % (30-34) 10/10/19 05:41 RDW 14.5 % (13.2-15.2) 10/10/19 05:41 Plt Count 361 K/mm3 (140-440) 10/10/19 05:41 Lymph % (Auto) 17.6 % (13.4-35.0) 10/10/19 05:41 [place] % (Auto) 6.9 % (0.0-7.3) 10/10/19 05:41 Eos % (Auto) 0.4 % (0.0-4.3) 10/10/19 05:41 Baso % (Auto) 0.6 % (0.0-1.8) 10/10/19 05:41 Lymph # 1.9 K/mm3 (1.2-5.4) 10/10/19 05:41 [place] # 0.7 K/mm3 (0.0-0.8) 10/10/19 05:41 Eos # 0.0 K/mm3 (0.0-0.4) 10/10/19 05:41 Baso # 0.1 K/mm3 (0.0-0.1) 10/10/19 05:41 Seg Neutrophils % 74.5 % (40.0-70.0) H 10/10/19 05:41 Seg Neutrophils # 8.1 K/mm3 (1.8-7.7) H 10/10/19 05:41 PT 13.3 Sec. (12.2-14.9) 10/09/19 10:48 INR 1.02 (0.87-1.13) 10/09/19 10:48 APTT 25.1 Sec. (24.2-36.6) 10/09/19 10:48 Sodium 152 mmol/L (137-145) H 10/10/19 05:41 Potassium 4.1 mmol/L (3.6-5.0) 10/10/19 05:41 Chloride 109.3 mmol/L (98-107) H 10/10/19 05:41 Carbon Dioxide 24 mmol/L (22-30) 10/10/19 05:41 Anion Gap 23 mmol/L 10/10/19 05:41 BUN 35 mg/dL (7-17) H 10/10/19 05:41 Creatinine 1.3 mg/dL (0.7-1.2) H 10/10/19 05:41 Estimated GFR 48 ml/min 10/10/19 05:41 BUN/Creatinine Ratio 27 % 10/10/19 05:41 Glucose 125 mg/dL (65-100) H 10/10/19 05:41 POC Glucose 120 (70-105) H 10/11/19 04:50 Lactic Acid 2.10 mmol/L (0.7-2.0) H* 10/09/19 16:01 Calcium 9.6 mg/dL (8.4-10.2) 10/10/19 05:41 Magnesium 2.00 mg/dL (1.7-2.3) 10/09/19 10:48 Total Bilirubin 0.60 mg/dL (0.1-1.2) 10/09/19 10:48 AST 18 units/L (5-40) 10/09/19 10:48 ALT 21 units/L (7-56) 10/09/19 10:48 Alkaline Phosphatase 81 units/L (35-129) 10/09/19 10:48 Total Creatine Kinase 91 units/L (30-135) 10/09/19 10:48 Total Protein 8.0 g/dL (6.3-8.2) 10/09/19 10:48 Albumin 4.1 g/dL (3.9-5) 10/09/19 10:48 Albumin/Globulin Ratio 1.1 % 10/09/19 10:48 TSH 50.740 mlU/mL (0.270-4.200) H 10/09/19 10:48 Free T4 0.40 ng/dL (0.76-1.46) L 10/09/19 10:48 Urine Color Yellow (Yellow) 10/09/19 12:00 Urine Turbidity Slightly-cloudy (Clear) 10/09/19 12:00 Urine pH 5.0 (5.0-7.0) 10/09/19 12:00 Ur Specific [place] 1.017 (1.003-1.030) 10/09/19 12:00 Urine Protein 30 mg/dl mg/dL (Negative) 10/09/19 12:00 Urine Glucose (UA) Neg mg/dL (Negative) 10/09/19 12:00 Urine Ketones Neg mg/dL (Negative) 10/09/19 12:00 Urine Blood Neg (Negative) 10/09/19 12:00 Urine Nitrite Neg (Negative) 10/09/19 12:00 Urine Bilirubin Neg (Negative) 10/09/19 12:00 Urine Urobilinogen < 2.0 mg/dL (<2.0) 10/09/19 12:00 Ur Leukocyte Esterase Neg (Negative) 10/09/19 12:00 Urine WBC (Auto) 1.0 /HPF (0.0-6.0) 10/09/19 12:00 Urine RBC (Auto) 2.0 /HPF (0.0-6.0) 10/09/19 12:00 U Epithel Cells (Auto) 4.0 /HPF (0-13.0) 10/09/19 12:00 Urine Mucus Few /HPF 10/09/19 12:00 Active Medications - Current Medications Current Medications: Generic Name Dose Route Start Last Admin Trade Name Freq PRN Reason Stop Dose Admin Albuterol 2.5 mg 10/09/19 12:55 Proventil IH Q3HRT PRN Shortness Of Breath Aspirin 81 mg 10/10/19 10:00 10/10/19 11:27 Halfprin Ec PO Not Given DAILY LEONARDO Calcium Carbonate/Glycine 1,250 mg 10/10/19 10:00 10/10/19 11:15 Oscal PO 1,250 mg QDAY LEONARDO Administration Dextrose 50 ml 10/09/19 14:07 D50w (25gm) Syringe IV Q30MIN PRN Hypoglycemia Protocol Donepezil HCl 10 mg 10/10/19 10:00 10/10/19 11:27 Aricept PO Not Given DAILY LEONARDO Enoxaparin Sodium 30 mg 10/10/19 22:00 10/10/19 22:27 Enoxaparin SUB-Q 30 mg QDAY@2200 LEONARDO Administration Ceftriaxone Sodium 2 gm in 100 mls @ 200 mls/hr 10/10/19 10:00 10/10/19 11:10 Rocephin/Ns 2 Gm/100 Ml IV 200 mls/hr Q24HR LEONARDO Administration Protocol Azithromycin 500 mg/ Sodium 250 mls @ 250 mls/hr 10/10/19 10:00 10/10/19 11:37 Chloride IV 250 mls/hr Q24HR LEONARDO Administration Protocol Metronidazole 500 mg in 100 mls @ 100 mls/hr 10/09/19 14:00 10/11/19 07:43 Flagyl 500 Mg/100 Ml IV 100 mls/hr Q8HR LEONARDO Administration Protocol Dextrose 1,000 mls @ 100 mls/hr 10/10/19 11:00 D5w IV DIRECT LEONARDO Insulin Human Lispro 0 unit 10/09/19 16:30 10/11/19 01:12 Humalog SUB-Q Not Given ACHS LEONARDO Protocol Loratadine 10 mg 10/10/19 10:00 10/10/19 11:29 Claritin PO Not Given DAILY LEONARDO Memantine 5 mg 10/09/19 22:00 10/10/19 22:23 Memantine PO Not Given BID LEONARDO Methimazole 5 mg 10/10/19 22:00 10/11/19 06:40 Tapazole PO Not Given Q8HR LEONARDO Pravastatin Sodium 80 mg 10/10/19 10:00 10/10/19 11:15 Pravachol PO 80 mg QDAY LEONARDO Administration Sodium Chloride 10 ml 10/09/19 22:00 10/10/19 22:39 Sodium Chloride Flush Syringe 10 Ml IV 10 ml BID LEONARDO Administration Sodium Chloride 10 ml 10/09/19 12:55 Sodium Chloride Flush Syringe 10 Ml IV PRN PRN LINE FLUSH Nutrition/Malnutrition Assess - Dietary Evaluation Nutrition/Malnutrition Findings: Nutrition Notes Start: 10/10/19 10:31 Freq: Status: Active Protocol: Document 10/10/19 10:32 LM (Rec: 10/10/19 10:55 LM [email or web address]) Nutrition Notes Need for Assessment generated from: director educational radio Initial or Follow up Assessment Current Diagnosis Acute Kidney Injury,Decubitus( Pressure Ulcer),Diabetes, Hypertension,Respiratory Failure Other Pertinent Diagnosis Sacral wound, dementia, encephalopathy, debility, pneu Current Diet NPO Labs/Tests Na 152 BUN 35 Cr 1.3 BG 125 Pertinent Medications Reviewed Height 4 ft 6 in Weight 60.2 kg [place] Body Weight (kg) 31.81 BMI 32.0 Subjective/Other Information RN screen for MST, difficulty chewing, and skin risk. Kiet score of 12, pt with sacral wound. Pt non verbal and no family present at time of visit to obtain information. Pt NPO. Pt with chewing and swallowing difficulties documented in chart and pt was unable to complete swallow eval. Burn Absent Trauma Absent Difficulty In Swallowing,Chewing Minimum of two criteria No physical signs of malnutrition #2 Nutrition Diagnosis Inadequate oral intake Etiology pt with possible chewing and swallowing difficulties, unable to complete swallow eval As Evidenced by Signs and Symptoms pt NPO #1 Nutrition Diagnosis Increased nutrient needs ( specify in comment below) Comments: protein Etiology wound healing As Evidenced by Signs and Symptoms sacral wound Is patient on ventilator? No Is Patient Ambulatory and/or Out of Bed No REE-([facility]-confined to bed) [phone] Calculation Used for Recommendations [facility] Additional Notes Protein: 37-69g (0.8-1.5g/kg) AdjBw 46kg pt with CHEN and wound Fluid: 1 ml/kcal or per MD Nutrition Intervention Change Diet Order: Diet advancement when medically feasible Goal #1 Diet advancement Anticipated Discharge Needs: unable to determine at this time Follow-Up By: 10/12/19 Additional Comments F/U for diet advancent, MST screen if family present
[2019-10-11 10:57] LABS: BUN/Creatinine Ratio 28; Blood Urea Nitrogen 25 mg/dL (7-17); Calcium 9.3 mg/dL (8.4-10.2); Hemolysis Index 21
[2019-10-11] MEDS: AZITHROMYCIN 500 MG in SODIUM CHLORIDE 0.9% 250ML 250 ML IV SCH (11:31)
[2019-10-11] MEDS: DONEPEZIL 10 MG TAB PO SCH (11:37)
[2019-10-11] MEDS: PRAVASTATIN 80 MG TAB PO SCH (11:38)
[2019-10-11] MEDS: LORATADINE (NF) 10 MG TAB PO SCH (11:38)
[2019-10-11] MEDS: MEMANTINE 5 MG TAB PO SCH ×2 (11:38→22:44)
[2019-10-11] MEDS: CALCIUM CARBONATE 1250 MG TAB PO SCH (11:38)
[2019-10-11] MEDS: ASPIRIN EC 81 MG TAB PO SCH (11:38)
[2019-10-11] MEDS ORDERED: POTASSIUM CHLORIDE 40 MEQ in SODIUM CHLORIDE 0.45% 500 ML IV SCH (12:00)
--- NOTE | 2019-10-11 14:22 | Progress Note ---
Assessment and Plan Patient is a 79 y/o woman w/ a h/o dementia, HTN, hyperthyroidism, DM, HLD, who p/w aspiration when eating. According to the patient's clinical findings, it is likely that she has metabolic encephalopathy. In support of this, patient has be en found to have CHEN, acidosis, respiratory failure on admission. Plan: 1. Metabolic encephalopathy: - In setting of baseline advanced dementia, and found to have respiratory failure, aspiration, CHEN, acidosis. Patient non-verbal at baseline. - CT head: no acute abnormalities - Continue to correct metabolic abnormalities per primary team - Will sign off. Please call with any questions. Thank you for allowing me to take part in the care of this patient. Charly Santizo MD Neurology Subjective Date of service: 10/11/19 Principal diagnosis: Acute respiratory failure, metabolic encephalopathy Interval history: No acute events overnight. Objective - Exam Narrative Exam: Patient is lethargic, opens eyes to vocal stimulus. Does not follow commands, other than squeezing hand. PERRL. W/d to pain in all extremities. Spontaneous an ti-gravity movement noted in all extremities. Reflexes 2+ throughout. Patient non-verbal, which is her baseline. - Vital Sign Vital Signs - 12hr 10/11/19 10/11/19 04:00 08:16 Temperature 98.2 F Pulse Rate [ 58 L From Monitor] Respiratory 14 Rate O2 Sat by Pulse 100 99 Oximetry - General Apperance Constitutional: comfortable - EENT EENT: ATNC, PERRL, mucous membranes moist - Respiratory Respiratory: decreased breath sounds - Cardiovascular Cardiovascular: regular rate, normal S1, normal S2 Extremities: no clubbing, cyanosis, no inflammation - Gastrointestinal Gastrointestinal: normoactive bowel sounds, soft, non-tender - Laboratory Findings CBC and BMP: 10/10/19 05:41 10/11/19 10:20 Abnormal Lab Findings: Abnormal Labs 10/09/19 10/09/19 10/09/19 10:48 10:48 10:48 [place] % (Auto) Seg Neutrophils % Seg Neutrophils # Sodium 149 H Potassium Chloride Carbon Dioxide 20 L BUN 45 H Creatinine 2.0 H Glucose 150 H POC Glucose Lactic Acid 2.20 H* TSH 50.740 H Free T4 10/09/19 10/09/19 10/09/19 10:48 10:48 13:18 [place] % (Auto) 7.6 H Seg Neutrophils % Seg Neutrophils # Sodium Potassium Chloride Carbon Dioxide BUN Creatinine Glucose POC Glucose Lactic Acid 2.60 H* TSH Free T4 0.40 L 10/09/19 10/09/19 10/09/19 16:01 17:21 23:06 [place] % (Auto) Seg Neutrophils % Seg Neutrophils # Sodium Potassium Chloride Carbon Dioxide BUN Creatinine Glucose POC Glucose 124 H 130 H Lactic Acid 2.10 H* TSH Free T4 10/10/19 10/10/19 10/10/19 05:41 05:41 15:59 [place] % (Auto) Seg Neutrophils % 74.5 H Seg Neutrophils # 8.1 H Sodium 152 H Potassium Chloride 109.3 H Carbon Dioxide BUN 35 H Creatinine 1.3 H Glucose 125 H POC Glucose 112 H Lactic Acid TSH Free T4 10/10/19 10/11/19 10/11/19 18:37 04:50 09:16 [place] % (Auto) Seg Neutrophils % Seg Neutrophils # Sodium Potassium Chloride Carbon Dioxide BUN Creatinine Glucose POC Glucose 108 H 120 H 122 H Lactic Acid TSH Free T4 10/11/19 10:20 [place] % (Auto) Seg Neutrophils % Seg Neutrophils # Sodium 148 H Potassium 3.5 L Chloride 107.4 H Carbon Dioxide 21 L BUN 25 H Creatinine Glucose 113 H POC Glucose Lactic Acid TSH Free T4
[2019-10-11] MEDS ORDERED: LORazepam 2 MG/ML VIAL IV PRN (14:29)
[2019-10-11] MEDS: ENOXAPARIN 30 MG/0.3 ML INJ SUB-Q SCH (22:47)
[2019-10-12] MEDS: methIMAzole 5 MG TAB PO SCH ×3 (05:41→21:12)
[2019-10-12] MEDS: metroNIDAZOLE/NS 500 MG/100 ML 500 MG/100 ML BAG IV SCH ×3 (05:43→21:06)
[2019-10-12 06:13] LABS: BUN/Creatinine Ratio 24; Blood Urea Nitrogen 24 mg/dL (7-17); Calcium 9.2 mg/dL (8.4-10.2); Hemolysis Index 2
[2019-10-12] MEDS: INSULIN LISPRO 100 UNIT/ML SUB-Q SCH ×4 (09:29→21:11)
[2019-10-12] MEDS: LORATADINE (NF) 10 MG TAB PO SCH (10:17)
[2019-10-12] MEDS: CALCIUM CARBONATE 1250 MG TAB PO SCH (10:17)
[2019-10-12] MEDS: MEMANTINE 5 MG TAB PO SCH ×2 (10:17→21:12)
[2019-10-12] MEDS: ASPIRIN EC 81 MG TAB PO SCH (10:17)
[2019-10-12] MEDS: PRAVASTATIN 80 MG TAB PO SCH (10:17)
[2019-10-12] MEDS: DONEPEZIL 10 MG TAB PO SCH (10:17)
[2019-10-12] MEDS: AZITHROMYCIN 500 MG in SODIUM CHLORIDE 0.9% 250ML 250 ML IV SCH (10:30)
[2019-10-12] MEDS: cefTRIAXone/NS 2 GM/100 ML 2 GM/100 ML BAG IV SCH (10:31)
[2019-10-12] MEDS: DEXTROSE 5% IN WATER 1,000 ML IV SCH ×2 (10:31→21:02)
[2019-10-12] MEDS ORDERED: POTASSIUM CHLORIDE 40 MEQ in SODIUM CHLORIDE 0.45% 500 ML IV ONE (11:00)
--- NOTE | 2019-10-12 13:01 | Consultation ---
History of Present Illness Consult date: 10/12/19 Requesting physician: AGUSTO MAZARIEGOS Reason for consult: other (Acute Hypoxemic Respiratory Failure) History of present illness: PULMONARY/CCM CONSULT NOTE (full dictation # [id number]) Please see dictated notes for full details Past History Past Medical History: other (see HPI) Past Surgical History: , hernia repair Social history: . denies: smoking, alcohol abuse, prescription drug abuse Family history: hypertension Medications and Allergies Allergies Allergy/AdvReac Type Severity Reaction Status Date / Time No Known Allergies Allergy Unverified 10/18/14 13:16 Home Medications Medication Instructions Recorded Confirmed Last Taken Type Aspirin EC [Halfprin EC] 81 mg PO DAILY 10/18/14 10/09/19 10/18/14 History 81 Calcium Carbonate [Calcium] 600 mg PO DAILY 10/18/14 10/09/19 10/18/14 History 600 Donepezil [Aricept] 10 mg PO DAILY 10/18/14 10/09/19 10/18/14 History 10 hydroCHLOROthiazide [Hctz] 25 mg PO DAILY 10/18/14 10/09/19 10/18/14 History 25 metFORMIN [Glucophage] 500 mg PO BID 10/18/14 10/09/19 10/18/14 History 500 Cetirizine 10mg chew 10 mg PO DAILY 10/09/19 10/09/19 Unknown History Lasix TAB 20 mg PO DAILY 10/09/19 10/09/19 Unknown History Losartan 25 mg PO DAILY 10/09/19 10/09/19 Unknown History Memantine 5 mg PO BID 10/09/19 10/09/19 Unknown History Methimazole 10 mg PO TID 10/09/19 10/09/19 Unknown History Mirtazapine 15 mg PO HS 10/09/19 10/09/19 Unknown History QUEtiapine 25 mg PO HS 10/09/19 10/09/19 Unknown History Simvastatin 40 mg PO DAILY 10/09/19 10/09/19 Unknown History Active Meds: Active Medications Albuterol (Proventil) 2.5 mg IH Q3HRT PRN PRN Reason: Shortness Of Breath Aspirin (Halfprin Ec) 81 mg PO DAILY [facility] Last Admin: 10/12/19 10:17 Dose: Not Given Documented by: Calcium Carbonate/Glycine (Oscal) 1,250 mg PO QDAY [facility] Last Admin: 10/12/19 10:17 Dose: Not Given Documented by: Dextrose (D50w (25gm) Syringe) 50 ml IV Q30MIN PRN; Protocol PRN Reason: Hypoglycemia Donepezil HCl (Aricept) 10 mg PO DAILY [facility] Last Admin: 10/12/19 10:17 Dose: Not Given Documented by: Enoxaparin Sodium (Enoxaparin) 30 mg SUB-Q QDAY@2200 LEONARDO Last Admin: 10/11/19 22:47 Dose: 30 mg Documented by: Ceftriaxone Sodium (Rocephin/Ns 2 Gm/100 Ml) 2 gm in 100 mls @ 200 mls/hr IV Q24HR LEONARDO; Protocol Last Admin: 10/12/19 10:31 Dose: 200 mls/hr Documented by: Azithromycin 500 mg/ Sodium (Chloride) 250 mls @ 250 mls/hr IV Q24HR LEONARDO; P rotocol Last Admin: 10/12/19 10:30 Dose: 250 mls/hr Documented by: Metronidazole (Flagyl 500 Mg/100 Ml) 500 mg in 100 mls @ 100 mls/hr IV Q8HR LEONARDO; Protocol Last Admin: 10/12/19 05:43 Dose: 100 mls/hr Documented by: Dextrose (D5w) 1,000 mls @ 100 mls/hr IV DIRECT LEONARDO Last Admin: 10/12/19 10:31 Dose: 100 mls/hr Documented by: Potassium Chloride 40 meq/ (Sodium Chloride) 520 mls @ 125 mls/hr IV ONCE ONE Stop: 10/12/19 15:09 Last Admin: 10/12/19 11:41 Dose: 125 mls/hr Documented by: Insulin Human Lispro (Humalog) 0 unit SUB-Q ACHS [facility]; Protocol Last Admin: 10/12/19 12:00 Dose: Not Given Documented by: Loratadine (Claritin) 10 mg PO DAILY [facility] Last Admin: 10/12/19 10:17 Dose: Not Given Documented by: Lorazepam (Ativan) 0.25 mg IV Q4H PRN PRN Reason: agitation/grinding Memantine (Memantine) 5 mg PO BID [facility] Last Admin: 10/12/19 10:17 Dose: Not Given Documented by: Methimazole (Tapazole) 5 mg PO Q8HR [facility] Last Admin: 10/12/19 05:41 Dose: Not Given Documented by: Pravastatin Sodium (Pravachol) 80 mg PO QDAY [facility] Last Admin: 10/12/19 10:17 Dose: Not Given Documented by: Sodium Chloride (Sodium Chloride Flush Syringe 10 Ml) 10 ml IV BID [facility] Last Admin: 10/12/19 10:33 Dose: 10 ml Documented by: Sodium Chloride (Sodium Chloride Flush Syringe 10 Ml) 10 ml IV PRN PRN PRN Reason: LINE FLUSH Physical Examination Vital signs: Vital Signs Temp Pulse Resp BP Pulse Ox 98 F 115 H 18 120/57 87 10/09/19 10:37 10/09/19 10:37 10/09/19 10:37 10/09/19 10:37 10/09/19 10:37 Results - Laboratory Findings CBC and BMP: 10/10/19 05:41 10/12/19 04:57 PT/INR, D-dimer PT 13.3 Sec. (12.2-14.9) 10/09/19 10:48 INR 1.02 (0.87-1.13) 10/09/19 10:48 Abnormal lab findings: Abnormal Labs 10/09/19 10/09/19 10/09/19 10:48 10:48 10:48 [place] % (Auto) Seg Neutrophils % Seg Neutrophils # Sodium 149 H Potassium Chloride Carbon Dioxide 20 L BUN 45 H Creatinine 2.0 H Glucose 150 H POC Glucose Lactic Acid 2.20 H* TSH 50.740 H Free T4 10/09/19 10/09/19 10/09/19 10:48 10:48 13:18 [place] % (Auto) 7.6 H Seg Neutrophils % Seg Neutrophils # Sodium Potassium Chloride Carbon Dioxide BUN Creatinine Glucose POC Glucose Lactic Acid 2.60 H* TSH Free T4 0.40 L 10/09/19 10/09/19 10/09/19 16:01 17:21 23:06 [place] % (Auto) Seg Neutrophils % Seg Neutrophils # Sodium Potassium Chloride Carbon Dioxide BUN Creatinine Glucose POC Glucose 124 H 130 H Lactic Acid 2.10 H* TSH Free T4 10/10/19 10/10/19 10/10/19 05:41 05:41 15:59 [place] % (Auto) Seg Neutrophils % 74.5 H Seg Neutrophils # 8.1 H Sodium 152 H Potassium Chloride 109.3 H Carbon Dioxide BUN 35 H Creatinine 1.3 H Glucose 125 H POC Glucose 112 H Lactic Acid TSH Free T4 10/10/19 10/11/19 10/11/19 18:37 04:50 09:16 [place] % (Auto) Seg Neutrophils % Seg Neutrophils # Sodium Potassium Chloride Carbon Dioxide BUN Creatinine Glucose POC Glucose 108 H 120 H 122 H Lactic Acid TSH Free T4 10/11/19 10/11/19 10/11/19 10:20 12:02 16:36 [place] % (Auto) Seg Neutrophils % Seg Neutrophils # Sodium 148 H Potassium 3.5 L Chloride 107.4 H Carbon Dioxide 21 L BUN 25 H Creatinine Glucose 113 H POC Glucose 117 H 110 H Lactic Acid TSH Free T4 10/12/19 10/12/19 04:57 08:12 [place] % (Auto) Seg Neutrophils % Seg Neutrophils # Sodium 152 H Potassium 3.3 L Chloride 112.5 H Carbon Dioxide BUN 24 H Creatinine Glucose 131 H POC Glucose 120 H Lactic Acid TSH Free T4
--- NOTE | 2019-10-12 13:38 | Progress Note ---
Assessment and Plan Assessment and plan: 79-year-old woman who was sent from assisted living facility. They related that she had been choking and was having trouble breathing. Past medical history; dementia, hypertension, thyroid disorder, diabetes, she is DNR at her assisted living facility Chest x-ray no acute findings Hyperthyroidism tfts show elevated TSH at 50 and low free T4 at 0.4. When patient able to tolerate p.o., her methimazole dose will be reduced acute metabolic encephalopathy supportive care, CT head neg, given dementia- daughter is not interested in MRI, she has refused obtain EEG, neuro consult appreciated, likely metabolic due to dehydration at baseline, she is non verbal, but is able to eat and is fully dependent, currently she only opens eyes occasionally and has not woken up Bruxism Ativan as needed CHEN/hypernatremia Renal function has improved., But hypernatremia is actually getting worse. Discussed with nursing staff and it turns out that D5w was ordered on 10/10, but never given. Spoke to the nurse Tete and the charge nurse Carleen also spoke to my medical office supervisor Dr. galarza. I have been assured that the drip will be given today. Hypokalemia Replete IV acute hypoxic Respiratory failure now weaned to NC repeat CXR is again negative, based on her clinical presentation is most likely that the patient aspirated. Discontinue antibiotics Dysphasia Patient unable to cooperate with speech therapy at this time, if she clinically improves will order speech therapy consult DVT prophylaxis with Lovenox DNR/DNI If patient does not improve with proper hydration, and is not able to eat. The daughter is not interested in heroic measures. She will most likely need inpatient hospice if she does not improve History Interval history: Neuro; no bruxism today, calm Review of systems Constitutional: No fevers, no malaise, no joint pains CVS: No chest pain, no orthopnea, no pedal edema GI: No abdominal pain, no diarrhea, no vomiting, no constipation Respiratory: , has had rhoncorus breath sounds, no cough, down to AL Hospitalist Physical - Physical exam Narrative exam: General.: Appears well, no distress, nontoxic Wet sounds in her throat, appears to have trouble clearing her own secretions HEENT: dry mucus membranes Neck: supple Cardiac: S1-S2 heard Lungs: rhonchi Abdomen: soft , nontender, nondistended, bowel sounds positive Extremities: no edema clubbing or cyanosis Skin: no rash or lesions Neurologic: Opens eyes, calm, nonverbal, does not obey commands Psych: calm - Constitutional Vitals: Temp Pulse Resp BP Pulse Ox 98.6 F 79 21 125/62 98 10/12/19 12:00 10/12/19 13:00 10/12/19 13:00 10/12/19 13:00 10/12/19 12:00 General appearance: Present: mild distress Results - Labs CBC & Chem 7: 10/10/19 05:41 10/12/19 04:57 Labs: Laboratory Last Values WBC 10.8 K/mm3 (4.5-11.0) 10/10/19 05:41 RBC 3.84 M/mm3 (3.65-5.03) 10/10/19 05:41 Hgb 11.6 gm/dl (10.1-14.3) 10/10/19 05:41 Hct 36.1 % (30.3-42.9) 10/10/19 05:41 MCV 94 fl (79-97) 10/10/19 05:41 MCH 30 pg (28-32) 10/10/19 05:41 MCHC 32 % (30-34) 10/10/19 05:41 RDW 14.5 % (13.2-15.2) 10/10/19 05:41 Plt Count 361 K/mm3 (140-440) 10/10/19 05:41 Lymph % (Auto) 17.6 % (13.4-35.0) 10/10/19 05:41 [place] % (Auto) 6.9 % (0.0-7.3) 10/10/19 05:41 Eos % (Auto) 0.4 % (0.0-4.3) 10/10/19 05:41 Baso % (Auto) 0.6 % (0.0-1.8) 10/10/19 05:41 Lymph # 1.9 K/mm3 (1.2-5.4) 10/10/19 05:41 [place] # 0.7 K/mm3 (0.0-0.8) 10/10/19 05:41 Eos # 0.0 K/mm3 (0.0-0.4) 10/10/19 05:41 Baso # 0.1 K/mm3 (0.0-0.1) 10/10/19 05:41 Seg Neutrophils % 74.5 % (40.0-70.0) H 10/10/19 05:41 Seg Neutrophils # 8.1 K/mm3 (1.8-7.7) H 10/10/19 05:41 PT 13.3 Sec. (12.2-14.9) 10/09/19 10:48 INR 1.02 (0.87-1.13) 10/09/19 10:48 APTT 25.1 Sec. (24.2-36.6) 10/09/19 10:48 Sodium 152 mmol/L (137-145) H 10/12/19 04:57 Potassium 3.3 mmol/L (3.6-5.0) L 10/12/19 04:57 Chloride 112.5 mmol/L (98-107) H 10/12/19 04:57 Carbon Dioxide 23 mmol/L (22-30) 10/12/19 04:57 Anion Gap 20 mmol/L 10/12/19 04:57 BUN 24 mg/dL (7-17) H 10/12/19 04:57 Creatinine 1.0 mg/dL (0.7-1.2) 10/12/19 04:57 Estimated GFR > 60 ml/min 10/12/19 04:57 BUN/Creatinine Ratio 24 % 10/12/19 04:57 Glucose 131 mg/dL (65-100) H 10/12/19 04:57 POC Glucose 113 (70-105) H 10/12/19 12:00 Lactic Acid 2.10 mmol/L (0.7-2.0) H* 10/09/19 16:01 Calcium 9.2 mg/dL (8.4-10.2) 10/12/19 04:57 Phosphorus 2.60 mg/dL (2.5-4.5) 10/12/19 04:57 Magnesium 2.00 mg/dL (1.7-2.3) 10/12/19 04:57 Total Bilirubin 0.60 mg/dL (0.1-1.2) 10/09/19 10:48 AST 18 units/L (5-40) 10/09/19 10:48 ALT 21 units/L (7-56) 10/09/19 10:48 Alkaline Phosphatase 81 units/L (35-129) 10/09/19 10:48 Total Creatine Kinase 91 units/L (30-135) 10/09/19 10:48 Total Protein 8.0 g/dL (6.3-8.2) 10/09/19 10:48 Albumin 4.1 g/dL (3.9-5) 10/09/19 10:48 Albumin/Globulin Ratio 1.1 % 10/09/19 10:48 TSH 50.740 mlU/mL (0.270-4.200) H 10/09/19 10:48 Free T4 0.40 ng/dL (0.76-1.46) L 10/09/19 10:48 Urine Color Yellow (Yellow) 10/09/19 12:00 Urine Turbidity Slightly-cloudy (Clear) 10/09/19 12:00 Urine pH 5.0 (5.0-7.0) 10/09/19 12:00 Ur Specific [place] 1.017 (1.003-1.030) 10/09/19 12:00 Urine Protein 30 mg/dl mg/dL (Negative) 10/09/19 12:00 Urine Glucose (UA) Neg mg/dL (Negative) 10/09/19 12:00 Urine Ketones Neg mg/dL (Negative) 10/09/19 12:00 Urine Blood Neg (Negative) 10/09/19 12:00 Urine Nitrite Neg (Negative) 10/09/19 12:00 Urine Bilirubin Neg (Negative) 10/09/19 12:00 Urine Urobilinogen < 2.0 mg/dL (<2.0) 10/09/19 12:00 Ur Leukocyte Esterase Neg (Negative) 10/09/19 12:00 Urine WBC (Auto) 1.0 /HPF (0.0-6.0) 10/09/19 12:00 Urine RBC (Auto) 2.0 /HPF (0.0-6.0) 10/09/19 12:00 U Epithel Cells (Auto) 4.0 /HPF (0-13.0) 10/09/19 12:00 Urine Mucus Few /HPF 10/09/19 12:00 Active Medications - Current Medications Current Medications: Generic Name Dose Route Start Last Admin Trade Name Freq PRN Reason Stop Dose Admin Albuterol 2.5 mg 10/09/19 12:55 Proventil IH Q3HRT PRN Shortness Of Breath Aspirin 81 mg 10/10/19 10:00 10/12/19 10:17 Halfprin Ec PO Not Given DAILY LEONARDO Calcium Carbonate/Glycine 1,250 mg 10/10/19 10:00 10/12/19 10:17 Oscal PO Not Given QDAY LEONARDO Dextrose 50 ml 10/09/19 14:07 D50w (25gm) Syringe IV Q30MIN PRN Hypoglycemia Protocol Donepezil HCl 10 mg 10/10/19 10:00 10/12/19 10:17 Aricept PO Not Given DAILY LEONARDO Enoxaparin Sodium 30 mg 10/10/19 22:00 10/11/19 22:47 Enoxaparin SUB-Q 30 mg QDAY@2200 LEONARDO Administration Famotidine 20 mg 10/12/19 14:00 Pepcid PO QDAY LEONARDO Ceftriaxone Sodium 2 gm in 100 mls @ 200 mls/hr 10/10/19 10:00 10/12/19 10:31 Rocephin/Ns 2 Gm/100 Ml IV 200 mls/hr Q24HR LEONARDO Administration Protocol Azithromycin 500 mg/ Sodium 250 mls @ 250 mls/hr 10/10/19 10:00 10/12/19 10:30 Chloride IV 250 mls/hr Q24HR LEONARDO Administration Protocol Metronidazole 500 mg in 100 mls @ 100 mls/hr 10/09/19 14:00 10/12/19 05:43 Flagyl 500 Mg/100 Ml IV 100 mls/hr Q8HR LEONARDO Administration Protocol Dextrose 1,000 mls @ 100 mls/hr 10/10/19 11:00 10/12/19 10:31 D5w IV 100 mls/hr DIRECT LEONARDO Administration Potassium Chloride 40 meq/ 520 mls @ 125 mls/hr 10/12/19 11:00 10/12/19 11:41 Sodium Chloride IV 10/12/19 15:09 125 mls/hr ONCE ONE Administration Insulin Human Lispro 0 unit 10/09/19 16:30 10/12/19 12:00 Humalog SUB-Q Not Given ACHS LEONARDO Protocol Loratadine 10 mg 10/10/19 10:00 10/12/19 10:17 Claritin PO Not Given DAILY LEONARDO Lorazepam 0.25 mg 10/11/19 14:29 Ativan IV Q4H PRN agitation/grinding Memantine 5 mg 10/09/19 22:00 10/12/19 10:17 Memantine PO Not Given BID LEONARDO Methimazole 5 mg 10/10/19 22:00 10/12/19 05:41 Tapazole PO Not Given Q8HR LEONARDO Pravastatin Sodium 80 mg 10/10/19 10:00 10/12/19 10:17 Pravachol PO Not Given QDAY LEONARDO Sodium Chloride 10 ml 10/09/19 22:00 10/12/19 10:33 Sodium Chloride Flush Syringe 10 Ml IV 10 ml BID LEONARDO Administration Sodium Chloride 10 ml 10/09/19 12:55 Sodium Chloride Flush Syringe 10 Ml IV PRN PRN LINE FLUSH Nutrition/Malnutrition Assess - Dietary Evaluation Nutrition/Malnutrition Findings: Nutrition Notes Start: 10/10/19 10:31 Freq: Status: Active Protocol: Document 10/12/19 12:37 LM (Rec: 10/12/19 12:44 LM [email or web address]) Nutrition Notes Initial or Follow up Reassessment Current Diagnosis Acute Kidney Injury,Decubitus( Pressure Ulcer),Diabetes, Hypertension,Respiratory Failure Other Pertinent Diagnosis Sacral wound, dementia, encephalopathy, debility, pneu Current Diet NPO Labs/Tests Na 152 K 3.3 BUN 24 BG 131 Pertinent Medications Reviewed Height 4 ft 6 in Weight 60.2 kg [place] Body Weight (kg) 31.81 BMI 32.0 Subjective/Other Information Pt remains NPO (day 2). Asked RN about plan to feed pt and RN stated pt's daughter is refusing everything. Burn Absent Trauma Absent Difficulty In Swallowing,Chewing Minimum of two criteria No physical signs of malnutrition #2 Nutrition Diagnosis Inadequate oral intake Diagnosis Progress(for reassessment Continues documentation) #1 Nutrition Diagnosis Increased nutrient needs ( specify in comment below) Diagnosis Progress(for reassessment Continues documentation) Is patient on ventilator? No Is Patient Ambulatory and/or Out of Bed No [facility] 0417.508 Calculation Used for Recommendations [facility] Additional Notes Protein: 37-69g (0.8-1.5g/kg) AdjBw 46kg pt with CHEN and wound Fluid: 1 ml/kcal or per MD Nutrition Intervention Change Diet Order: Diet advancement per SPECIMEN TECHNICIAN or enteral nutrition support if pt unable to tolerate PO Goal #1 Diet advancement Anticipated Discharge Needs: unable to determine at this time Follow-Up By: 10/15/19 Additional Comments F/U for POC
--- NOTE | 2019-10-12 14:00 | Consultation ---
PULMONARY CRITICAL CARE CONSULT NOTE CONSULTING PHYSICIAN: Dr. Shah. REASON FOR CONSULTATION: Hypoxemia. CHIEF COMPLAINT AND HISTORY OF PRESENT ILLNESS: The patient is a 79-year-old -[place] female, apparently in hospice care with past medical history significant amongst other things for a diagnosis of Alzheimer's dementia and dysphagia, who presented to the Emergency Room in respiratory distress, using accessory muscles, unable to provide history. Her daughter mentioned that she was in her usual state of health until she became short of breath while eating breakfast and aspiration of gastric contents suspected. EMS was called. On arrival, she was found to be hypoxemic, O2 sats in the 80s on room air. They did find retained oral secretions in her oropharynx. Her airway was cleared, she was brought into the Emergency Room. In the Emergency Room, family initially revoked hospice and requested aggressive medical care. She was a full code. She was admitted to the [facility]. We were asked to assist with her management. Ultimately, it seems like the family revoked this changed desire for aggressive care on the and made her mother a do not resuscitate. We were asked to assist with management. When I stopped by to see her, she was resting in bed peacefully, mildly increased respiratory effort, no vomiting, nonresponsive. Nurse denied any fevers or chills. The patient is not a current tobacco user, remote history is unknown. There is no history of falls or trauma. No history of gross or streaky hemoptysis. No history of seizures. This really is as much of the history of presentation as I have. PAST MEDICAL HISTORY: Again, significant for hypertension, diabetes, hyperthyroidism, Alzheimer's dementia, chronic encephalopathy, oropharyngeal dysphagia and adult failure to thrive. PAST SURGICAL HISTORY: She has had a section and a hernia repair in the past. MEDICATIONS: She was on at the time I stopped by to see her were reviewed, pertinent medications included the following: Albuterol 2.5 mg nebulized q.3 hours p.r.n. shortness of breath, aspirin 81 mg p.o. daily, Zithromax 500 mg IV daily, Os-Red 1.25 grams p.o. daily, Rocephin 2 g IV daily, Aricept 10 mg p.o. daily, Lovenox 30 mg subcutaneous daily, insulin via sliding scale, Claritin 10 mg p.o. daily, Ativan 0.25 mg IV q.4 hours p.r.n. agitation/grinding, memantine 5 mg p.o. b.i.d., methimazole 5 mg p.o. q. 8 hours, Flagyl 500 mg IV q. 8 hours. She is to receive potassium chloride 40 mEq IV x 1. Pravachol 80 mg p.o. daily. ALLERGIES: No known drug allergies. DIET: Thin lady, acute weight loss or gain history is unknown. FAMILY AND SOCIAL HISTORY: She is . No alcohol, tobacco, or illicit drug use or abuse. Remote history is unknown. There is a family history of hypertension. REVIEW OF SYSTEMS: Unobtainable secondary to the patient's medical and mental condition. Since she has been in the hospital, as far as I can tell, no gross hematochezia or melena. No gross hematuria, no hematemesis, no hemoptysis, no witnessed seizures. Review of systems is otherwise as in the body of the history above or unobtainable. PHYSICAL EXAMINATION: VITAL SIGNS: At presentation in the Emergency Room, she was afebrile, temperature 98 degrees Fahrenheit with a pulse of 115, respiratory rate of 18, blood pressure 120/57, O2 sats were 87, inspired oxygen concentration at that time was not recorded. When I stopped by to see her, O2 sats were 97% that was on 3 liters nasal cannula. GENERAL: Elderly looking -[place] female. Normocephalic, atraumatic. Resting peacefully in bed with mildly increased respiratory effort at rest. HEAD, EYES, EARS, NOSE AND THROAT: She was anicteric, no conjunctival erythema. Oropharynx could not be assessed. I could not get her to open her mouth. Her lips look dry. NECK: No gross jugular venous distention, no thyromegaly. Grossly, there were no palpable lymph nodes in the supraclavicular or submandibular lymph node chains. LUNGS: Auscultation of both lung figueroa revealed slightly diminished bilateral breath sounds, but clear. No wheezing. HEART: Heart sounds 1 and 2 were heard. They were regular in rate and rhythm with occasional extrasystoles at the time of my examination. No rubs or murmurs. ABDOMEN: Soft, flat. Bowel sounds are positive, nontender, no palpable hepatosplenomegaly. EXTREMITIES: Without overt digital clubbing or cyanosis. No pedal edema. Pedal pulses were 2+ bilaterally. NEUROLOGIC: Pupils were equal, round, about 3-4 mm, reactive to light. Extraocular muscle movements could not be assessed. She had spontaneous movements to extremities, but was not following commands, would not open her eyes, certainly an encephalopathic state. No overt spasticity or flaccidity that I noticed. SKIN: Poor turgor; however, without overt cellulitis or rash in the areas I examined. Please see the wound care notes for further details. Mood and affect were flat. LABORATORY DATA: From my review were as follows: Admission white cell count 10,100, hemoglobin 13.0, hematocrit 40.7, platelet count 423. No manual differential. INR was 1.02. Serum sodium was 149, potassium 3.7, chloride 106, bicarbonate 20, BUN was 45, creatinine was 2.0, glucose was 150. Lactic acid level was 2.2. TSH was 50.74 with free T4 of 0.4. Urinalysis was negative for nitrites and leukocyte esterase. Lactic acid level, the last one that I see was elevated at 2.1. Her most recent serum sodium was 152, potassium was 3.2. MICROBIOLOGY: Two sets of blood cultures, no growth to date in 48 hours. IMAGING: A CT scan was done of her head. I have reviewed the radiologist's interpretation. Advanced cerebral atrophy, no acute intracranial or other process. Chest x-ray was done, it shows really no acute process on my read, no cardiomegaly. Perhaps some haziness in the perihilar area on the right, but really no acute findings that I can tell. ASSESSMENT: 1. Acute hypoxemic respiratory failure, on supplemental oxygen. 2. Systemic inflammatory response syndrome/early sepsis. 3. Acute possibly on chronic encephalopathy. 4. Aspiration event without overt pneumonia. 5. Hypernatremia. 6. Mild metabolic acidosis. 7. Acute kidney injury. 8. Lactic acidosis. 9. Hyperglycemia. 10. History of diabetes. 11. Hyperthyroidism by history. 12. Alzheimer's dementia. 13. Oropharyngeal dysphagia. 14. History of hypertension. PLAN: Family has decided to make the patient a DNR, but they still want relatively aggressive care. Clinically, she has shown improvement in the last 48 hours. We will continue supplemental oxygen, keeping sats greater than or equal to 90%. We will continue aspiration precautions. Certainly, she will benefit from a swallow evaluation. She should be n.p.o. for now. EEG is about to be done and I believe Neurology evaluation may have been ordered. It has been ordered. I will defer to the neurologist regarding encephalopathy. We will continue gentle hydration for the acute kidney injury. Potassium is being replaced. Most recent magnesium was within normal limits. We will continue free water flushes for the hypernatremia. Hopefully, her mental status/encephalopathy improves with correction of the hypernatremia. She is appropriately on DVT prophylaxis. We will complete empiric community-acquired pneumonia therapy with Rocephin and Zithromax; 5 days of therapy should be appropriate. Glycemic control will be per sliding scale for target blood glucose less than 180 mg/dL. Again, she is appropriately on DVT prophylaxis with enoxaparin. I will put her on Pepcid for GI prophylaxis. I will defer to her attending in terms of management of the hyperthyroidism, especially in light of the current TSH level. She is also on Flagyl for possible aspiration component. I do not feel that she would need a CT scan at this point. We will treat him empirically. Flu and pneumonia vaccination will be addressed per protocol. Thank you very much for the consult Dr. Shah. We will follow along and make further recommendations as picture progresses/becomes clearer. She is more stable and consideration should be given to transferring her out of the Intermediate Care Unit to either the telemetry bed or adult care unit. We will follow along. We will make further recommendations as picture progresses/becomes clearer. JOB# [id number] KRUNAL/TIMMY TYSON
--- NOTE | 2019-10-12 15:28 | Electroencephalogram Report ---
Electroencephalogram EEG Date of exam: 10/12/19 History: Patient is a 79 y/o woman w/ a h/o dementia, HTN, hyperthyroidism, DM, HLD, who p/w aspiration when eating. Impression: 1. No seizures or epileptiform activity noted. Description: The waking background shows an appropriate organization with well-defined anterior posterior voltage and frequency gradients. Posteriorly, there is a well-developed alpha rhythm of [8-9] Hz which is symmetrical and bilaterally reactive. Anteriorly, there is a pattern of lower voltage and slightly irregular theta and beta range frequencies. Photic stimulation and hyperventilation were not performed. Significant movement and lead artifact noted. Throughout, the recording there are no epileptiform abnormalities, focal or lateralizing features, or significant interhemispheric findings. Interpretation: A normal routine EEG does not rule out seizures. Clinical correlation recommended.
[2019-10-12] MEDS: FAMOTIDINE 20 MG TAB PO SCH (15:38)
[2019-10-12] MEDS: ENOXAPARIN 30 MG/0.3 ML INJ SUB-Q SCH (21:07)
[2019-10-13 05:48] LABS: BUN/Creatinine Ratio 17; Blood Urea Nitrogen 15 mg/dL (7-17); Calcium 8.9 mg/dL (8.4-10.2); Hemolysis Index 5
[2019-10-13] MEDS: metroNIDAZOLE/NS 500 MG/100 ML 500 MG/100 ML BAG IV SCH ×3 (06:03→21:57)
[2019-10-13] MEDS: methIMAzole 5 MG TAB PO SCH ×3 (06:09→22:00)
[2019-10-13] MEDS: INSULIN LISPRO 100 UNIT/ML SUB-Q SCH ×4 (08:29→22:48)
[2019-10-13] MEDS: DEXTROSE 5% IN WATER 1,000 ML IV SCH ×2 (09:34→22:47)
--- NOTE | 2019-10-13 12:20 | Progress Note ---
Assessment and Plan Assessment and plan: 79-year-old woman who was sent from assisted living facility. They related that she had been choking and was having trouble breathing. Past medical history; dementia, hypertension, thyroid disorder, diabetes, she is DNR at her assisted living facility Chest x-ray no acute findings Hyperthyroidism tfts show elevated TSH at 50 and low free T4 at 0.4. When patient able to tolerate p.o., her methimazole dose will be reduced acute metabolic encephalopathy supportive care, CT head neg, given dementia- daughter is not interested in MRI, she has refused obtain EEG, neuro consult appreciated, likely metabolic due to dehydration at baseline, she is non verbal, but is able to eat and is fully dependent, patient is more awake and more responsive. Bruxism Ativan as needed CHEN/hypernatremia,dehydration, vasomotor nephropathy improving with d5w drip Hypokalemia Replete IV acute hypoxic Respiratory failure now weaned to NC repeat CXR is again negative, based on her clinical presentation is most likely that the patient aspirated. Discontinue antibiotics Chronic dysphasia Food was found in the back of the patient's throat by Ems, also the patient appears to have trouble clearing her own secretions. Patient unable to cooperate with speech therapy at this time, if she clinically improves will order speech therapy consult DVT prophylaxis with Lovenox DNR/DNI If patient does not improve with proper hydration, and is not able to eat. The daughter is not interested in heroic measures. She will most likely need inpatient hospice if she does not improve History Interval history: Neuro; no bruxism today, calm Review of systems Constitutional: No fevers, no malaise, no joint pains CVS: No chest pain, no orthopnea, no pedal edema GI: No abdominal pain, no diarrhea, no vomiting, no constipation Respiratory: , has had rhoncorus breath sounds, no cough, down to [place] Hospitalist Physical - Physical exam Narrative exam: General.: Appears well, no distress, nontoxic Wet sounds in her throat, appears to have trouble clearing her own secretions HEENT: dry mucus membranes Neck: supple Cardiac: S1-S2 heard Lungs: rhonchi Abdomen: soft , nontender, nondistended, bowel sounds positive Extremities: no edema clubbing or cyanosis Skin: no rash or lesions Neurologic: Opens eyes, calm, nonverbal, does not obey commands Psych: calm - Constitutional Vitals: Temp Pulse Resp BP Pulse Ox 98.2 F 75 20 109/59 100 10/13/19 07:36 10/13/19 07:36 10/13/19 07:36 10/13/19 07:36 10/13/19 09:20 General appearance: Present: mild distress Results - Labs CBC & Chem 7: 10/10/19 05:41 10/15/19 05:30 Labs: Laboratory Last Values WBC 10.8 K/mm3 (4.5-11.0) 10/10/19 05:41 RBC 3.84 M/mm3 (3.65-5.03) 10/10/19 05:41 Hgb 11.6 gm/dl (10.1-14.3) 10/10/19 05:41 Hct 36.1 % (30.3-42.9) 10/10/19 05:41 MCV 94 fl (79-97) 10/10/19 05:41 MCH 30 pg (28-32) 10/10/19 05:41 MCHC 32 % (30-34) 10/10/19 05:41 RDW 14.5 % (13.2-15.2) 10/10/19 05:41 Plt Count 361 K/mm3 (140-440) 10/10/19 05:41 Lymph % (Auto) 17.6 % (13.4-35.0) 10/10/19 05:41 [place] % (Auto) 6.9 % (0.0-7.3) 10/10/19 05:41 Eos % (Auto) 0.4 % (0.0-4.3) 10/10/19 05:41 Baso % (Auto) 0.6 % (0.0-1.8) 10/10/19 05:41 Lymph # 1.9 K/mm3 (1.2-5.4) 10/10/19 05:41 [place] # 0.7 K/mm3 (0.0-0.8) 10/10/19 05:41 Eos # 0.0 K/mm3 (0.0-0.4) 10/10/19 05:41 Baso # 0.1 K/mm3 (0.0-0.1) 10/10/19 05:41 Seg Neutrophils % 74.5 % (40.0-70.0) H 10/10/19 05:41 Seg Neutrophils # 8.1 K/mm3 (1.8-7.7) H 10/10/19 05:41 PT 13.3 Sec. (12.2-14.9) 10/09/19 10:48 INR 1.02 (0.87-1.13) 10/09/19 10:48 APTT 25.1 Sec. (24.2-36.6) 10/09/19 10:48 Sodium 149 mmol/L (137-145) H 10/13/19 04:45 Potassium 3.8 mmol/L (3.6-5.0) 10/13/19 04:45 Chloride 113.8 mmol/L (98-107) H 10/13/19 04:45 Carbon Dioxide 24 mmol/L (22-30) 10/13/19 04:45 Anion Gap 15 mmol/L 10/13/19 04:45 BUN 15 mg/dL (7-17) 10/13/19 04:45 Creatinine 0.9 mg/dL (0.7-1.2) 10/13/19 04:45 Estimated GFR > 60 ml/min 10/13/19 04:45 BUN/Creatinine Ratio 17 % 10/13/19 04:45 Glucose 207 mg/dL (65-100) H 10/13/19 04:45 POC Glucose 161 (70-105) H 10/13/19 11:45 Lactic Acid 1.00 mmol/L (0.7-2.0) 10/12/19 15:17 Calcium 8.9 mg/dL (8.4-10.2) 10/13/19 04:45 Phosphorus 2.60 mg/dL (2.5-4.5) 10/12/19 04:57 Magnesium 2.00 mg/dL (1.7-2.3) 10/12/19 04:57 Total Bilirubin 0.60 mg/dL (0.1-1.2) 10/09/19 10:48 AST 18 units/L (5-40) 10/09/19 10:48 ALT 21 units/L (7-56) 10/09/19 10:48 Alkaline Phosphatase 81 units/L (35-129) 10/09/19 10:48 Total Creatine Kinase 91 units/L (30-135) 10/09/19 10:48 Total Protein 8.0 g/dL (6.3-8.2) 10/09/19 10:48 Albumin 4.1 g/dL (3.9-5) 10/09/19 10:48 Albumin/Globulin Ratio 1.1 % 10/09/19 10:48 TSH 50.740 mlU/mL (0.270-4.200) H 10/09/19 10:48 Free T4 0.40 ng/dL (0.76-1.46) L 10/09/19 10:48 Urine Color Yellow (Yellow) 10/09/19 12:00 Urine Turbidity Slightly-cloudy (Clear) 10/09/19 12:00 Urine pH 5.0 (5.0-7.0) 10/09/19 12:00 Ur Specific [place] 1.017 (1.003-1.030) 10/09/19 12:00 Urine Protein 30 mg/dl mg/dL (Negative) 10/09/19 12:00 Urine Glucose (UA) Neg mg/dL (Negative) 10/09/19 12:00 Urine Ketones Neg mg/dL (Negative) 10/09/19 12:00 Urine Blood Neg (Negative) 10/09/19 12:00 Urine Nitrite Neg (Negative) 10/09/19 12:00 Urine Bilirubin Neg (Negative) 10/09/19 12:00 Urine Urobilinogen < 2.0 mg/dL (<2.0) 10/09/19 12:00 Ur Leukocyte Esterase Neg (Negative) 10/09/19 12:00 Urine WBC (Auto) 1.0 /HPF (0.0-6.0) 10/09/19 12:00 Urine RBC (Auto) 2.0 /HPF (0.0-6.0) 10/09/19 12:00 U Epithel Cells (Auto) 4.0 /HPF (0-13.0) 10/09/19 12:00 Urine Mucus Few /HPF 10/09/19 12:00 Active Medications - Current Medications Current Medications: Generic Name Dose Route Start Last Admin Trade Name Freq PRN Reason Stop Dose Admin Albuterol 2.5 mg 10/09/19 12:55 Proventil IH Q3HRT PRN Shortness Of Breath Aspirin 81 mg 10/10/19 10:00 10/12/19 10:17 Halfprin Ec PO Not Given DAILY [facility] Calcium Carbonate/Glycine 1,250 mg 10/10/19 10:00 10/12/19 10:17 Oscal PO Not Given QDAY [facility] Dextrose 50 ml 10/09/19 14:07 D50w (25gm) Syringe IV Q30MIN PRN Hypoglycemia Protocol Donepezil HCl 10 mg 10/10/19 10:00 10/12/19 10:17 Aricept PO Not Given DAILY [facility] Enoxaparin Sodium 30 mg 10/10/19 22:00 10/12/19 21:07 Enoxaparin SUB-Q 30 mg QDAY@2200 LEONARDO Administration Famotidine 20 mg 10/12/19 14:00 10/12/19 15:38 Pepcid PO Not Given QDAY [facility] Metronidazole 500 mg in 100 mls @ 100 mls/hr 10/09/19 14:00 10/13/19 06:03 Flagyl 500 Mg/100 Ml IV 100 mls/hr Q8HR LEONARDO Administration Protocol Dextrose 1,000 mls @ 100 mls/hr 10/10/19 11:00 10/13/19 09:34 D5w IV 100 mls/hr DIRECT LEONARDO Administration Insulin Human Lispro 0 unit 10/09/19 16:30 10/13/19 12:19 Humalog SUB-Q Not Given ACHS [facility] Protocol Loratadine 10 mg 10/10/19 10:00 10/12/19 10:17 Claritin PO Not Given DAILY [facility] Lorazepam 0.25 mg 10/11/19 14:29 Ativan IV Q4H PRN agitation/grinding Memantine 5 mg 10/09/19 22:00 10/12/19 21:12 Memantine PO Not Given BID [facility] Methimazole 5 mg 10/10/19 22:00 10/13/19 06:09 Tapazole PO Not Given Q8HR [facility] Pravastatin Sodium 80 mg 10/10/19 10:00 10/12/19 10:17 Pravachol PO Not Given QDAY [facility] Sodium Chloride 10 ml 10/09/19 22:00 10/12/19 21:07 Sodium Chloride Flush Syringe 10 Ml IV 10 ml BID LEONARDO Administration Sodium Chloride 10 ml 10/09/19 12:55 Sodium Chloride Flush Syringe 10 Ml IV PRN PRN LINE FLUSH Nutrition/Malnutrition Assess - Dietary Evaluation Nutrition/Malnutrition Findings: Nutrition Notes Start: 10/10/19 10:31 Freq: Status: Active Protocol: Document 10/12/19 12:37 LM (Rec: 10/12/19 12:44 LM [email or web address]) Nutrition Notes Initial or Follow up Reassessment Current Diagnosis Acute Kidney Injury,Decubitus( Pressure Ulcer),Diabetes, Hypertension,Respiratory Failure Other Pertinent Diagnosis Sacral wound, dementia, encephalopathy, debility, pneu Current Diet NPO Labs/Tests Na 152 K 3.3 BUN 24 BG 131 Pertinent Medications Reviewed Height 4 ft 6 in Weight 60.2 kg [place] Body Weight (kg) 31.81 BMI 32.0 Subjective/Other Information Pt remains NPO (day 2). Asked RN about plan to feed pt and RN stated pt's daughter is refusing everything. Burn Absent Trauma Absent Difficulty In Swallowing,Chewing Minimum of two criteria No physical signs of malnutrition #2 Nutrition Diagnosis Inadequate oral intake Diagnosis Progress(for reassessment Continues documentation) #1 Nutrition Diagnosis Increased nutrient needs ( specify in comment below) Diagnosis Progress(for reassessment Continues documentation) Is patient on ventilator? No Is Patient Ambulatory and/or Out of Bed No REE-([place]-St. Jeor-confined to bed) 1096.668 Calculation Used for [facility]ations [facility] or Additional Notes Protein: 37-69g (0.8-1.5g/kg) AdjBw 46kg pt with CHEN and wound Fluid: 1 ml/kcal or per MD Nutrition Intervention Change Diet Order: Diet advancement per SYSTEM SALES CONSULTANT or enteral nutrition support if pt unable to tolerate PO Goal #1 Diet advancement Anticipated Discharge Needs: unable to determine at this time Follow-Up By: 10/15/19 Additional Comments F/U for POC
--- NOTE | 2019-10-13 13:27 | Progress Note ---
Assessment and Plan Acute hypoxemic respiratory failure, on supplemental oxygen. Systemic inflammatory response syndrome/early sepsis. Acute possibly on chronic encephalopathy. Aspiration event without overt pneumonia. Hypernatremia. Mild metabolic acidosis. Acute kidney injury. Lactic acidosis. Hyperglycemia. History of diabetes. Hyperthyroidism by history. Alzheimer's dementia. Oropharyngeal dysphagia. History of hypertension.\ - continue supplemental oxygen as needed to keep O2 sat's > 90% - continue bronchodilators with pulmonary hygiene per RT - completed empiric CAP directed antibiotics - continue free water supplementation re: hypernatremia (repeat BMP in am) - PT/OT as tolerated - mobility protocols for pressure ulcer prophylaxis - GI & VTE prophylaxis - Flu & Pneumovax addressed per protocol - continue other care per attending / other career consultant's .... re-evaluate in am & prn Subjective Date of service: 10/13/19 Principal diagnosis: Ac. hypoxemic resp failure; SIRS; Ac encephalopathy; Aspiration; CHEN Interval history: Patient is seen today for: Ac. hypoxemic respiratory failure; SIRS /early sepsis; Acute possibly on chronic encephalopathy; Aspiration event without overt pneumonia; Hypernatremia; Acute kidney injury. Seen and examined at bedside; 24-hour events reviewed; nursing and respiratory care staff consulted; no adverse overnight events reported to me; resting peacefully in bed; remains on supplemental oxygen at 0.32 FiO2; AMS is persistent Objective Vital Signs - 12hr 10/13/19 10/13/19 10/13/19 02:27 07:36 09:20 Temperature 98.4 F 98.2 F Pulse Rate 75 Respiratory 18 20 Rate Blood Pressure 114/77 109/59 O2 Sat by Pulse 92 100 100 Oximetry 10/13/19 13:00 Temperature Pulse Rate 76 Respiratory Rate Blood Pressure O2 Sat by Pulse Oximetry Constitutional: no acute distress, other (elderly looking AAF, normocephalic re sting in bed with mildly increased respiratory effort at rest) Eyes: non-icteric ENT: oropharynx moist Neck: supple, no lymphadenopathy, no JVD Effort: mildly labored Ascultation: Bilateral: clear, diminished breath sounds Percussion: Bilateral: not dull Cardiovascular: regular rate and rhythm Gastrointestinal: normoactive bowel sounds, soft, non-tender, non-distended Integumentary: normal Extremities: no cyanosis, no edema, pulses normal, no ischemia or petechiae Neurologic: non-focal exam (grossly), unable to assess Psychiatric: other (encephalopathic) CBC and BMP: 10/10/19 05:41 10/14/19 04:10 ABG, PT/INR, D-dimer: PT/INR, D-dimer PT 13.3 Sec. (12.2-14.9) 10/09/19 10:48 INR 1.02 (0.87-1.13) 10/09/19 10:48 Abnormal lab findings: Abnormal Labs 10/09/19 10/09/19 10/09/19 10:48 10:48 10:48 [place] % (Auto) Seg Neutrophils % Seg Neutrophils # Sodium 149 H Potassium Chloride Carbon Dioxide 20 L BUN 45 H Creatinine 2.0 H Glucose 150 H POC Glucose Lactic Acid 2.20 H* TSH 50.740 H Free T4 10/09/19 10/09/19 10/09/19 10:48 10:48 13:18 [place] % (Auto) 7.6 H Seg Neutrophils % Seg Neutrophils # Sodium Potassium Chloride Carbon Dioxide BUN Creatinine Glucose POC Glucose Lactic Acid 2.60 H* TSH Free T4 0.40 L 10/09/19 10/09/19 10/09/19 16:01 17:21 23:06 [place] % (Auto) Seg Neutrophils % Seg Neutrophils # Sodium Potassium Chloride Carbon Dioxide BUN Creatinine Glucose POC Glucose 124 H 130 H Lactic Acid 2.10 H* TSH Free T4 10/10/19 10/10/19 10/10/19 05:41 05:41 15:59 [place] % (Auto) Seg Neutrophils % 74.5 H Seg Neutrophils # 8.1 H Sodium 152 H Potassium Chloride 109.3 H Carbon Dioxide BUN 35 H Creatinine 1.3 H Glucose 125 H POC Glucose 112 H Lactic Acid TSH Free T4 10/10/19 10/11/19 10/11/19 18:37 04:50 09:16 [place] % (Auto) Seg Neutrophils % Seg Neutrophils # Sodium Potassium Chloride Carbon Dioxide BUN Creatinine Glucose POC Glucose 108 H 120 H 122 H Lactic Acid TSH Free T4 10/11/19 10/11/19 10/11/19 10:20 12:02 16:36 [place] % (Auto) Seg Neutrophils % Seg Neutrophils # Sodium 148 H Potassium 3.5 L Chloride 107.4 H Carbon Dioxide 21 L BUN 25 H Creatinine Glucose 113 H POC Glucose 117 H 110 H Lactic Acid TSH Free T4 1110/12/19 10/12/19 04:57 08:12 12:00 [place] % (Auto) Seg Neutrophils % Seg Neutrophils # Sodium 152 H Potassium 3.3 L Chloride 112.5 H Carbon Dioxide BUN 24 H Creatinine Glucose 131 H POC Glucose 120 H 113 H Lactic Acid TSH Free T4 10/12/19 10/12/19 10/13/19 16:21 21:12 04:45 [place] % (Auto) Seg Neutrophils % Seg Neutrophils # Sodium 149 H Potassium Chloride 113.8 H Carbon Dioxide BUN Creatinine Glucose 207 H POC Glucose 137 H 172 H Lactic Acid TSH Free T4 10/13/19 10/13/19 07:21 11:45 [place] % (Auto) Seg Neutrophils % Seg Neutrophils # Sodium Potassium Chloride Carbon Dioxide BUN Creatinine Glucose POC Glucose 187 H 161 H Lactic Acid TSH Free T4 Chest x-ray: image reviewed Allied health notes reviewed: nursing
[2019-10-13] MEDS: DONEPEZIL 10 MG TAB PO SCH (14:33)
[2019-10-13] MEDS: MEMANTINE 5 MG TAB PO SCH ×2 (14:33→22:00)
[2019-10-13] MEDS: FAMOTIDINE 20 MG TAB PO SCH (14:33)
[2019-10-13] MEDS: LORATADINE (NF) 10 MG TAB PO SCH (14:33)
[2019-10-13] MEDS: CALCIUM CARBONATE 1250 MG TAB PO SCH (14:33)
[2019-10-13] MEDS: ASPIRIN EC 81 MG TAB PO SCH (14:33)
[2019-10-13] MEDS: PRAVASTATIN 80 MG TAB PO SCH (14:48)
[2019-10-13] MEDS: ENOXAPARIN 30 MG/0.3 ML INJ SUB-Q SCH (21:58)
[2019-10-14 04:57] LABS: BUN/Creatinine Ratio 15; Blood Urea Nitrogen 9 mg/dL (7-17); Calcium 8.4 mg/dL (8.4-10.2); Hemolysis Index 16
[2019-10-14] MEDS: methIMAzole 5 MG TAB PO SCH ×3 (05:29→21:06)
[2019-10-14] MEDS: metroNIDAZOLE/NS 500 MG/100 ML 500 MG/100 ML BAG IV SCH ×2 (05:30→13:38)
[2019-10-14] MEDS: INSULIN LISPRO 100 UNIT/ML SUB-Q SCH ×4 (07:59→22:47)
[2019-10-14] MEDS: PRAVASTATIN 80 MG TAB PO SCH (10:00)
[2019-10-14] MEDS: FAMOTIDINE 20 MG TAB PO SCH (10:00)
[2019-10-14] MEDS: LORATADINE (NF) 10 MG TAB PO SCH (10:00)
[2019-10-14] MEDS: ASPIRIN EC 81 MG TAB PO SCH (10:00)
[2019-10-14] MEDS: MEMANTINE 5 MG TAB PO SCH ×2 (10:00→21:06)
[2019-10-14] MEDS: DONEPEZIL 10 MG TAB PO SCH (10:00)
[2019-10-14] MEDS: CALCIUM CARBONATE 1250 MG TAB PO SCH (10:00)
--- NOTE | 2019-10-14 12:44 | Progress Note ---
Assessment and Plan Assessment and plan: 79-year-old woman who was sent from assisted living facility. They related that she had been choking and was having trouble breathing. Past medical history; dementia, hypertension, thyroid disorder, diabetes, she is DNR at her assisted living facility Chest x-ray no acute findings Hyperthyroidism tfts show elevated TSH at 50 and low free T4 at 0.4. When patient able to tolerate p.o., her methimazole dose will be reduced acute metabolic encephalopathy supportive care, CT head neg, given dementia- daughter is not interested in MRI, she has refused obtain EEG, neuro consult appreciated, likely metabolic due to dehydration at baseline, she is non verbal, but is able to eat and is fully dependent, currently she only opens eyes occasionally and has not woken up Bruxism Ativan as needed CHEN/hypernatremia,dehydration, vasomotor nephropathy improving with d5w drip Hypokalemia Replete IV acute hypoxic Respiratory failure now weaned to [place] repeat CXR is again negative, based on her clinical presentation is most likely that the patient aspirated. Discontinue antibiotics Dysphasia Patient unable to cooperate with speech therapy at this time, if she clinically improves will order speech therapy consult DVT prophylaxis with Lovenox DNR/DNI If patient does not improve with proper hydration, and is not able to eat. The daughter is not interested in heroic measures. She will most likely need inpatient hospice if she does not improve advance care planning 30 mins History Interval history: Neuro; no bruxism today, calm Review of systems Constitutional: No fevers, no malaise, no joint pains CVS: No chest pain, no orthopnea, no pedal edema GI: No abdominal pain, no diarrhea, no vomiting, no constipation Respiratory: , has had rhoncorus breath sounds, no cough, down to [place] Hospitalist Physical - Physical exam Narrative exam: General.: Appears well, no distress, nontoxic Wet sounds in her throat, appears to have trouble clearing her own secretions HEENT: dry mucus membranes Neck: supple Cardiac: S1-S2 heard Lungs: rhonchi Abdomen: soft , nontender, nondistended, bowel sounds positive Extremities: no edema clubbing or cyanosis Skin: no rash or lesions Neurologic: Opens eyes, calm, nonverbal, does not obey commands Psych: calm - Constitutional Vitals: Temp Pulse Resp BP Pulse Ox 97.5 F L 56 L 18 104/61 100 10/14/19 07:26 10/14/19 07:26 10/14/19 07:26 10/14/19 07:26 10/14/19 09:15 General appearance: Present: mild distress Results - Labs CBC & Chem 7: 10/10/19 05:41 10/15/19 05:30 Labs: Laboratory Last Values WBC 10.8 K/mm3 (4.5-11.0) 10/10/19 05:41 RBC 3.84 M/mm3 (3.65-5.03) 10/10/19 05:41 Hgb 11.6 gm/dl (10.1-14.3) 10/10/19 05:41 Hct 36.1 % (30.3-42.9) 10/10/19 05:41 MCV 94 fl (79-97) 10/10/19 05:41 MCH 30 pg (28-32) 10/10/19 05:41 MCHC 32 % (30-34) 10/10/19 05:41 RDW 14.5 % (13.2-15.2) 10/10/19 05:41 Plt Count 361 K/mm3 (140-440) 10/10/19 05:41 Lymph % (Auto) 17.6 % (13.4-35.0) 10/10/19 05:41 [place] % (Auto) 6.9 % (0.0-7.3) 10/10/19 05:41 Eos % (Auto) 0.4 % (0.0-4.3) 10/10/19 05:41 Baso % (Auto) 0.6 % (0.0-1.8) 10/10/19 05:41 Lymph # 1.9 K/mm3 (1.2-5.4) 10/10/19 05:41 [place] # 0.7 K/mm3 (0.0-0.8) 10/10/19 05:41 Eos # 0.0 K/mm3 (0.0-0.4) 10/10/19 05:41 Baso # 0.1 K/mm3 (0.0-0.1) 10/10/19 05:41 Seg Neutrophils % 74.5 % (40.0-70.0) H 10/10/19 05:41 Seg Neutrophils # 8.1 K/mm3 (1.8-7.7) H 10/10/19 05:41 PT 13.3 Sec. (12.2-14.9) 10/09/19 10:48 INR 1.02 (0.87-1.13) 10/09/19 10:48 APTT 25.1 Sec. (24.2-36.6) 10/09/19 10:48 Sodium 141 mmol/L (137-145) D 10/14/19 04:10 Potassium 3.2 mmol/L (3.6-5.0) L 10/14/19 04:10 Chloride 106.2 mmol/L (98-107) 10/14/19 04:10 Carbon Dioxide 22 mmol/L (22-30) 10/14/19 04:10 Anion Gap 16 mmol/L 10/14/19 04:10 BUN 9 mg/dL (7-17) 10/14/19 04:10 Creatinine 0.6 mg/dL (0.7-1.2) L 10/14/19 04:10 Estimated GFR > 60 ml/min 10/14/19 04:10 BUN/Creatinine Ratio 15 % 10/14/19 04:10 Glucose 167 mg/dL (65-100) H 10/14/19 04:10 POC Glucose 125 (70-105) H 10/14/19 12:05 Lactic Acid 1.00 mmol/L (0.7-2.0) 10/12/19 15:17 Calcium 8.4 mg/dL (8.4-10.2) 10/14/19 04:10 Phosphorus 2.60 mg/dL (2.5-4.5) 10/12/19 04:57 Magnesium 2.00 mg/dL (1.7-2.3) 10/12/19 04:57 Total Bilirubin 0.60 mg/dL (0.1-1.2) 10/09/19 10:48 AST 18 units/L (5-40) 10/09/19 10:48 ALT 21 units/L (7-56) 10/09/19 10:48 Alkaline Phosphatase 81 units/L (35-129) 10/09/19 10:48 Total Creatine Kinase 91 units/L (30-135) 10/09/19 10:48 Total Protein 8.0 g/dL (6.3-8.2) 10/09/19 10:48 Albumin 4.1 g/dL (3.9-5) 10/09/19 10:48 Albumin/Globulin Ratio 1.1 % 10/09/19 10:48 TSH 50.740 mlU/mL (0.270-4.200) H 10/09/19 10:48 Free T4 0.40 ng/dL (0.76-1.46) L 10/09/19 10:48 Urine Color Yellow (Yellow) 10/09/19 12:00 Urine Turbidity Slightly-cloudy (Clear) 10/09/19 12:00 Urine pH 5.0 (5.0-7.0) 10/09/19 12:00 Ur Specific [place] 1.017 (1.003-1.030) 10/09/19 12:00 Urine Protein 30 mg/dl mg/dL (Negative) 10/09/19 12:00 Urine Glucose (UA) Neg mg/dL (Negative) 10/09/19 12:00 Urine Ketones Neg mg/dL (Negative) 10/09/19 12:00 Urine Blood Neg (Negative) 10/09/19 12:00 Urine Nitrite Neg (Negative) 10/09/19 12:00 Urine Bilirubin Neg (Negative) 10/09/19 12:00 Urine Urobilinogen < 2.0 mg/dL (<2.0) 10/09/19 12:00 Ur Leukocyte Esterase Neg (Negative) 10/09/19 12:00 Urine WBC (Auto) 1.0 /HPF (0.0-6.0) 10/09/19 12:00 Urine RBC (Auto) 2.0 /HPF (0.0-6.0) 10/09/19 12:00 U Epithel Cells (Auto) 4.0 /HPF (0-13.0) 10/09/19 12:00 Urine Mucus Few /HPF 10/09/19 12:00 Active Medications - Current Medications Current Medications: Generic Name Dose Route Start Last Admin Trade Name Freq PRN Reason Stop Dose Admin Albuterol 2.5 mg 10/09/19 12:55 Proventil IH Q3HRT PRN Shortness Of Breath Aspirin 81 mg 10/10/19 10:00 10/14/19 10:00 Halfprin Ec PO Not Given DAILY LEONARDO Calcium Carbonate/Glycine 1,250 mg 10/10/19 10:00 10/14/19 10:00 Oscal PO Not Given QDAY [facility] Dextrose 50 ml 10/09/19 14:07 D50w (25gm) Syringe IV Q30MIN PRN Hypoglycemia Protocol Donepezil HCl 10 mg 10/10/19 10:00 10/14/19 10:00 Aricept PO Not Given DAILY LEONARDO Enoxaparin Sodium 30 mg 10/10/19 22:00 10/13/19 21:58 Enoxaparin SUB-Q 30 mg QDAY@2200 LEONARDO Administration Famotidine 20 mg 10/12/19 14:00 10/14/19 10:00 Pepcid PO Not Given QDAY [facility] Metronidazole 500 mg in 100 mls @ 100 mls/hr 10/09/19 14:00 10/14/19 05:30 Flagyl 500 Mg/100 Ml IV 100 mls/hr Q8HR LEONARDO Administration Protocol Dextrose 1,000 mls @ 100 mls/hr 10/10/19 11:00 10/13/19 22:47 D5w IV 100 mls/hr DIRECT LEONARDO Administration Insulin Human Lispro 0 unit 10/09/19 16:30 10/14/19 07:59 Humalog SUB-Q Not Given ACHS [facility] Protocol Loratadine 10 mg 10/10/19 10:00 10/14/19 10:00 Claritin PO Not Given DAILY [facility] Lorazepam 0.25 mg 10/11/19 14:29 Ativan IV Q4H PRN agitation/grinding Memantine 5 mg 10/09/19 22:00 10/14/19 10:00 Memantine PO Not Given BID [facility] Methimazole 5 mg 10/10/19 22:00 10/14/19 05:29 Tapazole PO Not Given Q8HR [facility] Pravastatin Sodium 80 mg 10/10/19 10:00 10/14/19 10:00 Pravachol PO Not Given QDAY [facility] Sodium Chloride 10 ml 10/09/19 22:00 10/14/19 10:01 Sodium Chloride Flush Syringe 10 Ml IV 10 ml BID LEONARDO Administration Sodium Chloride 10 ml 10/09/19 12:55 Sodium Chloride Flush Syringe 10 Ml IV PRN PRN LINE FLUSH Nutrition/Malnutrition Assess - Dietary Evaluation Nutrition/Malnutrition Findings: Nutrition Notes Start: 10/10/19 10:31 Freq: Status: Active Protocol: Document 10/12/19 12:37 LM (Rec: 10/12/19 12:44 LM [email or web address]) Nutrition Notes Initial or Follow up Reassessment Current Diagnosis Acute Kidney Injury,Decubitus( Pressure Ulcer),Diabetes, Hypertension,Respiratory Failure Other Pertinent Diagnosis Sacral wound, dementia, encephalopathy, debility, pneu Current Diet NPO Labs/Tests Na 152 K 3.3 BUN 24 BG 131 Pertinent Medications Reviewed Height 4 ft 6 in Weight 60.2 kg [place] Body Weight (kg) 31.81 BMI 32.0 Subjective/Other Information Pt remains NPO (day 2). Asked RN about plan to feed pt and RN stated pt's daughter is refusing everything. Burn Absent Trauma Absent Difficulty In Swallowing,Chewing Minimum of two criteria No physical signs of malnutrition #2 Nutrition Diagnosis Inadequate oral intake Diagnosis Progress(for reassessment Continues documentation) #1 Nutrition Diagnosis Increased nutrient needs ( specify in comment below) Diagnosis Progress(for reassessment Continues documentation) Is patient on ventilator? No Is Patient Ambulatory and/or Out of Bed No REE-([place]-St. Jeor-confined to bed) 1096.285 Calculation Used for Recommendations [place] Jeor Additional Notes Protein: 37-69g (0.8-1.5g/kg) AdjBw 46kg pt with CHEN and wound Fluid: 1 ml/kcal or per MD Nutrition Intervention Change Diet Order: Diet advancement per EMG TECHNICIAN or enteral nutrition support if pt unable to tolerate PO Goal #1 Diet advancement Anticipated Discharge Needs: unable to determine at this time Follow-Up By: 10/15/19 Additional Comments F/U for POC
[2019-10-14] MEDS ORDERED: POTASSIUM CHLORIDE 40 MEQ in SODIUM CHLORIDE 0.45% 500 ML IV ONE (13:00)
--- NOTE | 2019-10-14 14:45 | Progress Note ---
Assessment and Plan Acute hypoxemic respiratory failure, on supplemental oxygen. Systemic inflammatory response syndrome/early sepsis. Acute possibly on chronic encephalopathy. Aspiration event without overt pneumonia. Hypernatremia. Mild metabolic acidosis. Acute kidney injury. Lactic acidosis. Hyperglycemia. History of diabetes. Hyperthyroidism by history. Alzheimer's dementia. Oropharyngeal dysphagia. History of hypertension - aspiration precautions - continue supplemental oxygen as needed to keep O2 sat's > 90% - continue bronchodilators with pulmonary hygiene per RT - completed empiric CAP directed antibiotics - continue free water supplementation re: hypernatremia (repeat BMP in am) - PT/OT as tolerated - mobility protocols for pressure ulcer prophylaxis - GI & VTE prophylaxis - Flu & Pneumovax addressed per protocol - continue other care per attending / other party plan sales consultant's .... re-evaluate in am & prn Subjective Date of service: 10/14/19 Principal diagnosis: Ac. hypoxemic resp failure; SIRS; Ac encephalopathy; Aspiration; CHEN Interval history: Patient is seen today for: Ac. hypoxemic respiratory failure; SIRS /early sepsis; Acute possibly on chronic encephalopathy; Aspiration event without overt pneumonia; Hypernatremia; Acute kidney injury. Seen and examined at bedside; 24-hour events reviewed; nursing and respiratory care staff consulted; no adverse overnight events reported to me; resting peacefully in bed; remains on supplemental oxygen; AMS is better but still with chronic encephalopathy component; NO emesis or overt aspiration Objective Vital Signs - 12hr 10/14/19 10/14/19 07:26 09:15 Temperature 97.5 F L Pulse Rate 56 L Respiratory 18 Rate Blood Pressure 104/61 O2 Sat by Pulse 100 100 Oximetry Constitutional: no acute distress, other (elderly looking AAF, normocephalic resting in bed with mildly increased respiratory effort at rest) Eyes: non-icteric ENT: oropharynx moist Neck: supple, no lymphadenopathy, no JVD Effort: normal Ascultation: Bilateral: clear, diminished breath sounds Percussion: Bilateral: not dull Cardiovascular: regular rate and rhythm Gastrointestinal: normoactive bowel sounds, soft, non-tender, non-distended Integumentary: normal Extremities: no cyanosis, no edema, pulses normal, no ischemia or petechiae Neurologic: non-focal exam (grossly), unable to assess Psychiatric: other (encephalopathic) CBC and BMP: 10/10/19 05:41 10/18/19 05:01 ABG, PT/INR, D-dimer: PT/INR, D-dimer PT 13.3 Sec. (12.2-14.9) 10/09/19 10:48 INR 1.02 (0.87-1.13) 10/09/19 10:48 Abnormal lab findings: Abnormal Labs 10/09/19 10/09/19 10/09/19 10:48 10:48 10:48 [place] % (Auto) Seg Neutrophils % Seg Neutrophils # Sodium 149 H Potassium Chloride Carbon Dioxide 20 L BUN 45 H Creatinine 2.0 H Glucose 150 H POC Glucose Lactic Acid 2.20 H* TSH 50.740 H Free T4 10/09/19 10/09/19 10/09/19 10:48 10:48 13:18 [place] % (Auto) 7.6 H Seg Neutrophils % Seg Neutrophils # Sodium Potassium Chloride Carbon Dioxide BUN Creatinine Glucose POC Glucose Lactic Acid 2.60 H* TSH Free T4 0.40 L 10/09/19 10/09/19 10/09/19 16:01 17:21 23:06 [place] % (Auto) Seg Neutrophils % Seg Neutrophils # Sodium Potassium Chloride Carbon Dioxide BUN Creatinine Glucose POC Glucose 124 H 130 H Lactic Acid 2.10 H* TSH Free T4 10/10/19 10/10/19 10/10/19 05:41 05:41 15:59 [place] % (Auto) Seg Neutrophils % 74.5 H Seg Neutrophils # 8.1 H Sodium 152 H Potassium Chloride 109.3 H Carbon Dioxide BUN 35 H Creatinine 1.3 H Glucose 125 H POC Glucose 112 H Lactic Acid TSH Free T4 10/10/19 10/11/19 10/11/19 18:37 04:50 09:16 [place] % (Auto) Seg Neutrophils % Seg Neutrophils # Sodium Potassium Chloride Carbon Dioxide BUN Creatinine Glucose POC Glucose 108 H 120 H 122 H Lactic Acid TSH Free T4 10/11/19 10/11/19 10/11/19 10:20 12:02 16:36 [place] % (Auto) Seg Neutrophils % Seg Neutrophils # Sodium 148 H Potassium 3.5 L Chloride 107.4 H Carbon Dioxide 21 L BUN 25 H Creatinine Glucose 113 H POC Glucose 117 H 110 H Lactic Acid TSH Free T4 10/12/19 10/12/19 10/12/19 04:57 08:12 12:00 [place] % (Auto) Seg Neutrophils % Seg Neutrophils # Sodium 152 H Potassium 3.3 L Chloride 112.5 H Carbon Dioxide BUN 24 H Creatinine Glucose 131 H POC Glucose 120 H 113 H Lactic Acid TSH Free T4 10/12/19 10/12/19 10/13/19 16:21 21:12 04:45 [place] % (Auto) Seg Neutrophils % Seg Neutrophils # Sodium 149 H Potassium Chloride 113.8 H Carbon Dioxide BUN Creatinine Glucose 207 H POC Glucose 137 H 172 H Lactic Acid TSH Free T4 10/13/19 10/13/19 10/13/19 07:21 11:45 16:20 [place] % (Auto) Seg Neutrophils % Seg Neutrophils # Sodium Potassium Chloride Carbon Dioxide BUN Creatinine Glucose POC Glucose 187 H 161 H 132 H Lactic Acid TSH Free T4 10/13/19 10/14/19 10/14/19 22:29 04:10 07:35 [place] % (Auto) Seg Neutrophils % Seg Neutrophils # Sodium Potassium 3.2 L Chloride Carbon Dioxide BUN Creatinine 0.6 L Glucose 167 H POC Glucose 120 H 166 H Lactic Acid TSH Free T4 10/14/19 12:05 [place] % (Auto) Seg Neutrophils % Seg Neutrophils # Sodium Potassium Chloride Carbon Dioxide BUN Creatinine Glucose POC Glucose 125 H Lactic Acid TSH Free T4 Allied health notes reviewed: nursing
[2019-10-14] MEDS: DEXTROSE 5% IN WATER 1,000 ML IV SCH (18:28)
[2019-10-14] MEDS: ENOXAPARIN 30 MG/0.3 ML INJ SUB-Q SCH (21:08)
[2019-10-15] MEDS: methIMAzole 5 MG TAB PO SCH ×3 (05:22→22:09)
[2019-10-15] MEDS: DEXTROSE 5% IN WATER 1,000 ML IV SCH (05:27)
[2019-10-15 06:27] LABS: BUN/Creatinine Ratio 13; Blood Urea Nitrogen 5 mg/dL (7-17); Calcium 8.3 mg/dL (8.4-10.2); Hemolysis Index 0
[2019-10-15] MEDS: INSULIN LISPRO 100 UNIT/ML SUB-Q SCH ×4 (08:17→22:11)
--- NOTE | 2019-10-15 10:05 | Progress Note ---
Assessment and Plan Assessment and plan: 79-year-old woman who was sent from assisted living facility. They related that she had been choking and was having trouble breathing. Past medical history; dementia, hypertension, thyroid disorder, diabetes, she is DNR at her assisted living facility Chest x-ray no acute findings Hyperthyroidism tfts show elevated TSH at 50 and low free T4 at 0.4. When patient able to tolerate p.o., her methimazole dose will be reduced acute metabolic encephalopathy supportive care, CT head neg, given dementia- daughter is not interested in MRI, she has refused obtain EEG, neuro consult appreciated, likely metabolic due to dehydration at baseline, she is non verbal, but is able to eat and is fully dependent, currently she only opens eyes occasionally and has not woken up sacral excoriations -wound care benadryl for itching Bruxism Ativan as needed CHEN/hypernatremia,dehydration, vasomotor nephropathy improving with d5w drip Hypokalemia Replete IV acute hypoxic Respiratory failure now weaned to NC repeat CXR is again negative, based on her clinical presentation is most likely that the patient aspirated. Discontinue antibiotics Dysphasia is chronic and worseing, daughter agreeable to PEG, Gi consulted DVT prophylaxis with Lovenox DNR/DNI If patient does not improve with proper hydration, and is not able to eat. The daughter is not interested in heroic measures. She will most likely need inpatient hospice if she does not improve advance care planning 30 mins -Per the daughter, the patient can be made full code to have the EGD. After which she should be put back to DNR History Interval history: Neuro; no bruxism today, calm Review of systems Constitutional: No fevers, no malaise, no joint pains CVS: No chest pain, no orthopnea, no pedal edema GI: No abdominal pain, no diarrhea, no vomiting, no constipation Respiratory: , has had rhoncorus breath sounds, no cough, down to [place] Hospitalist Physical - Physical exam Narrative exam: General.: Appears well, no distress, nontoxic Wet sounds in her throat, appears to have trouble clearing her own secretions HEENT: dry mucus membranes Neck: supple Cardiac: S1-S2 heard Lungs: rhonchi Abdomen: soft , nontender, nondistended, bowel sounds positive Extremities: no edema clubbing or cyanosis Skin: no rash or lesions Neurologic: Opens eyes, calm, nonverbal, does not obey commands Psych: calm - Constitutional Vitals: Temp Pulse Resp BP Pulse Ox 97.8 F 46 L 20 94/42 94 10/15/19 07:40 10/15/19 07:40 10/15/19 07:40 10/15/19 07:40 10/15/19 08:34 General appearance: Present: mild distress Results - Labs CBC & Chem 7: 10/10/19 05:41 10/15/19 05:30 Labs: Laboratory Last Values WBC 10.8 K/mm3 (4.5-11.0) 10/10/19 05:41 RBC 3.84 M/mm3 (3.65-5.03) 10/10/19 05:41 Hgb 11.6 gm/dl (10.1-14.3) 10/10/19 05:41 Hct 36.1 % (30.3-42.9) 10/10/19 05:41 MCV 94 fl (79-97) 10/10/19 05:41 MCH 30 pg (28-32) 10/10/19 05:41 MCHC 32 % (30-34) 10/10/19 05:41 RDW 14.5 % (13.2-15.2) 10/10/19 05:41 Plt Count 361 K/mm3 (140-440) 10/10/19 05:41 Lymph % (Auto) 17.6 % (13.4-35.0) 10/10/19 05:41 [place] % (Auto) 6.9 % (0.0-7.3) 10/10/19 05:41 Eos % (Auto) 0.4 % (0.0-4.3) 10/10/19 05:41 Baso % (Auto) 0.6 % (0.0-1.8) 10/10/19 05:41 Lymph # 1.9 K/mm3 (1.2-5.4) 10/10/19 05:41 [place] # 0.7 K/mm3 (0.0-0.8) 10/10/19 05:41 Eos # 0.0 K/mm3 (0.0-0.4) 10/10/19 05:41 Baso # 0.1 K/mm3 (0.0-0.1) 10/10/19 05:41 Seg Neutrophils % 74.5 % (40.0-70.0) H 10/10/19 05:41 Seg Neutrophils # 8.1 K/mm3 (1.8-7.7) H 10/10/19 05:41 PT 13.3 Sec. (12.2-14.9) 10/09/19 10:48 INR 1.02 (0.87-1.13) 10/09/19 10:48 APTT 25.1 Sec. (24.2-36.6) 10/09/19 10:48 Sodium 139 mmol/L (137-145) 10/15/19 05:30 Potassium 3.3 mmol/L (3.6-5.0) L 10/15/19 05:30 Chloride 105.7 mmol/L (98-107) 10/15/19 05:30 Carbon Dioxide 23 mmol/L (22-30) 10/15/19 05:30 Anion Gap 14 mmol/L 10/15/19 05:30 BUN 5 mg/dL (7-17) L 10/15/19 05:30 Creatinine 0.4 mg/dL (0.7-1.2) L 10/15/19 05:30 Estimated GFR > 60 ml/min 10/15/19 05:30 BUN/Creatinine Ratio 13 % 10/15/19 05:30 Glucose 143 mg/dL (65-100) H 10/15/19 05:30 POC Glucose 116 (70-105) H 10/15/19 07:39 Lactic Acid 1.00 mmol/L (0.7-2.0) 10/12/19 15:17 Calcium 8.3 mg/dL (8.4-10.2) L 10/15/19 05:30 Phosphorus 2.60 mg/dL (2.5-4.5) 10/12/19 04:57 Magnesium 2.00 mg/dL (1.7-2.3) 10/12/19 04:57 Total Bilirubin 0.60 mg/dL (0.1-1.2) 10/09/19 10:48 AST 18 units/L (5-40) 10/09/19 10:48 ALT 21 units/L (7-56) 10/09/19 10:48 Alkaline Phosphatase 81 units/L (35-129) 10/09/19 10:48 Total Creatine Kinase 91 units/L (30-135) 10/09/19 10:48 Total Protein 8.0 g/dL (6.3-8.2) 10/09/19 10:48 Albumin 4.1 g/dL (3.9-5) 10/09/19 10:48 Albumin/Globulin Ratio 1.1 % 10/09/19 10:48 TSH 50.740 mlU/mL (0.270-4.200) H 10/09/19 10:48 Free T4 0.40 ng/dL (0.76-1.46) L 10/09/19 10:48 Urine Color Yellow (Yellow) 10/09/19 12:00 Urine Turbidity Slightly-cloudy (Clear) 10/09/19 12:00 Urine pH 5.0 (5.0-7.0) 10/09/19 12:00 Ur Specific [place] 1.017 (1.003-1.030) 10/09/19 12:00 Urine Protein 30 mg/dl mg/dL (Negative) 10/09/19 12:00 Urine Glucose (UA) Neg mg/dL (Negative) 10/09/19 12:00 Urine Ketones Neg mg/dL (Negative) 10/09/19 12:00 Urine Blood Neg (Negative) 10/09/19 12:00 Urine Nitrite Neg (Negative) 10/09/19 12:00 Urine Bilirubin Neg (Negative) 10/09/19 12:00 Urine Urobilinogen < 2.0 mg/dL (<2.0) 10/09/19 12:00 Ur Leukocyte Esterase Neg (Negative) 10/09/19 12:00 Urine WBC (Auto) 1.0 /HPF (0.0-6.0) 10/09/19 12:00 Urine RBC (Auto) 2.0 /HPF (0.0-6.0) 10/09/19 12:00 U Epithel Cells (Auto) 4.0 /HPF (0-13.0) 10/09/19 12:00 Urine Mucus Few /HPF 10/09/19 12:00 Active Medications - Current Medications Current Medications: Generic Name Dose Route Start Last Admin Trade Name Freq PRN Reason Stop Dose Admin Albuterol 2.5 mg 10/09/19 12:55 Proventil IH Q3HRT PRN Shortness Of Breath Aspirin 81 mg 10/10/19 10:00 10/14/19 10:00 Halfprin Ec PO Not Given DAILY [facility] Calcium Carbonate/Glycine 1,250 mg 10/10/19 10:00 10/14/19 10:00 Oscal PO Not Given QDAY [facility] Dextrose 50 ml 10/09/19 14:07 D50w (25gm) Syringe IV Q30MIN PRN Hypoglycemia Protocol Donepezil HCl 10 mg 10/10/19 10:00 10/14/19 10:00 Aricept PO Not Given DAILY [facility] Enoxaparin Sodium 40 mg 10/15/19 22:00 Enoxaparin SUB-Q QDAY@2200 [facility] Famotidine 20 mg 10/12/19 14:00 10/14/19 10:00 Pepcid PO Not Given QDAY [facility] Dextrose 1,000 mls @ 100 mls/hr 10/10/19 11:00 10/15/19 05:27 D5w IV 100 mls/hr DIRECT [facility] Administration Insulin Human Lispro 0 unit 10/09/19 16:30 10/15/19 08:17 Humalog SUB-Q Not Given ACHS [facility] Protocol Loratadine 10 mg 10/10/19 10:00 10/14/19 10:00 Claritin PO Not Given DAILY [facility] Lorazepam 0.25 mg 10/11/19 14:29 Ativan IV Q4H PRN agitation/grinding Memantine 5 mg 10/09/19 22:00 10/14/19 21:06 Memantine PO Not Given BID [facility] Methimazole 5 mg 10/10/19 22:00 10/15/19 05:22 Tapazole PO Not Given Q8HR [facility] Pravastatin Sodium 80 mg 10/10/19 10:00 10/14/19 10:00 Pravachol PO Not Given QDAY [facility] Sodium Chloride 10 ml 10/09/19 22:00 10/14/19 21:09 Sodium Chloride Flush Syringe 10 Ml IV 10 ml BID [facility] Administration Sodium Chloride 10 ml 10/09/19 12:55 Sodium Chloride Flush Syringe 10 Ml IV PRN PRN LINE FLUSH Nutrition/Malnutrition Assess - Dietary Evaluation Nutrition/Malnutrition Findings: Nutrition Notes Start: 10/10/19 10:31 Freq: Status: Active Protocol: Document 10/12/19 12:37 LM (Rec: 10/12/19 12:44 LM [id number]) Nutrition Notes Initial or Follow up Reassessment Current Diagnosis Acute Kidney Injury,Decubitus( Pressure Ulcer),Diabetes, Hypertension,Respiratory Failure Other Pertinent Diagnosis Sacral wound, dementia, encephalopathy, debility, pneu Current Diet NPO Labs/Tests Na 152 K 3.3 BUN 24 BG 131 Pertinent Medications Reviewed Height 4 ft 6 in Weight 60.2 kg [place] Body Weight (kg) 31.81 BMI 32.0 Subjective/Other Information Pt remains NPO (day 2). Asked RN about plan to feed pt and RN stated pt's daughter is refusing everything. Burn Absent Trauma Absent Difficulty In Swallowing,Chewing Minimum of two criteria No physical signs of malnutrition #2 Nutrition Diagnosis Inadequate oral intake Diagnosis Progress(for reassessment Continues documentation) #1 Nutrition Diagnosis Increased nutrient needs ( specify in comment below) Diagnosis Progress(for reassessment Continues documentation) Is patient on ventilator? No Is Patient Ambulatory and/or Out of Bed No REE-([facility]-confined to bed) 1096.66 Calculation Used for Recommendations [facility] Additional Notes Protein: 37-69g (0.8-1.5g/kg) AdjBw 46kg pt with CHEN and wound Fluid: 1 ml/kcal or per MD Nutrition Intervention Change Diet Order: Diet advancement per DENTAL SECRETARY or enteral nutrition support if pt unable to tolerate PO Goal #1 Diet advancement Anticipated Discharge Needs: unable to determine at this time Follow-Up By: 10/15/19 Additional Comments F/U for POC
[2019-10-15] MEDS: DONEPEZIL 10 MG TAB PO SCH (10:54)
[2019-10-15] MEDS: MEMANTINE 5 MG TAB PO SCH ×2 (10:55→22:09)
[2019-10-15] MEDS: ASPIRIN EC 81 MG TAB PO SCH (10:55)
[2019-10-15] MEDS: FAMOTIDINE 20 MG TAB PO SCH (10:55)
[2019-10-15] MEDS: CALCIUM CARBONATE 1250 MG TAB PO SCH (10:55)
[2019-10-15] MEDS: PRAVASTATIN 80 MG TAB PO SCH (10:55)
[2019-10-15] MEDS: LORATADINE (NF) 10 MG TAB PO SCH (10:55)
--- NOTE | 2019-10-15 12:37 | Consultation ---
History of Present Illness - Reason for Consult Consult date: 10/15/19 Aspiration, PEG placement Requesting physician: AGUSTO MAZARIEGOS - History of Present Illness Mrs. Bazan is a 79-year-old woman with a history of Alzheimer's disease. History is obtained from her daughter, Dorothea Nieves. Ms. Bazan has been nonverbal and basically bedridden for the last 3 years. She was admitted this time with aspiration pneumonia. She was intubated and is now much improved. GI consult is requested for G-tube placement. The patient has been well cared for at home and is otherwise doing well. Meds reviewed. Past History Past Medical History: diabetes, hyperthyroidism, hypertension, other (Dementia) Past Surgical History: , hernia repair Social history: . denies: smoking, alcohol abuse, prescription drug abuse Family history: hypertension Medications and Allergies Allergies Allergy/AdvReac Type Severity Reaction Status Date / Time No Known Allergies Allergy Unverified 10/18/14 13:16 Home Medications Medication Instructions Recorded Confirmed Last Taken Type Aspirin EC [Halfprin EC] 81 mg PO DAILY 10/18/14 10/09/19 10/18/14 History 81 Calcium Carbonate [Calcium] 600 mg PO DAILY 10/18/14 10/09/19 10/18/14 History 600 Donepezil [Aricept] 10 mg PO DAILY 10/18/14 10/09/19 10/18/14 History 10 hydroCHLOROthiazide [Hctz] 25 mg PO DAILY 10/18/14 10/09/19 10/18/14 History 25 metFORMIN [Glucophage] 500 mg PO BID 10/18/14 10/09/19 10/18/14 History 500 Cetirizine 10mg chew 10 mg PO DAILY 10/09/19 10/09/19 Unknown History Lasix TAB 20 mg PO DAILY 10/09/19 10/09/19 Unknown History Losartan 25 mg PO DAILY 10/09/19 10/09/19 Unknown History Memantine 5 mg PO BID 10/09/19 10/09/19 Unknown History Methimazole 10 mg PO TID 10/09/19 10/09/19 Unknown History Mirtazapine 15 mg PO HS 10/09/19 10/09/19 Unknown History QUEtiapine 25 mg PO HS 10/09/19 10/09/19 Unknown History Simvastatin 40 mg PO DAILY 10/09/19 10/09/19 Unknown History Active Meds: Active Medications Albuterol (Proventil) 2.5 mg IH Q3HRT PRN PRN Reason: Shortness Of Breath Aspirin (Halfprin Ec) 81 mg PO DAILY [facility] Last Admin: 10/15/19 10:55 Dose: Not Given Documented by: Calcium Carbonate/Glycine (Oscal) 1,250 mg PO QDAY [facility] Last Admin: 10/15/19 10:55 Dose: Not Given Documented by: Dextrose (D50w (25gm) Syringe) 50 ml IV Q30MIN PRN; Protocol PRN Reason: Hypoglycemia Donepezil HCl (Aricept) 10 mg PO DAILY [facility] Last Admin: 10/15/19 10:54 Dose: Not Given Documented by: Enoxaparin Sodium (Enoxaparin) 40 mg SUB-Q QDAY@2200 [facility] Famotidine (Pepcid) 20 mg PO QDAY [facility] Last Admin: 10/15/19 10:55 Dose: Not Given Documented by: Potassium Chloride 20 meq/ (Dextrose) 1,010 mls @ 100 mls/hr IV DIRECT [facility] Insulin Human Lispro (Humalog) 0 unit SUB-Q ACHS [facility]; Protocol Last Admin: 10/15/19 08:17 Dose: Not Given Documented by: Loratadine (Claritin) 10 mg PO DAILY [facility] Last Admin: 10/15/19 10:55 Dose: Not Given Documented by: Lorazepam (Ativan) 0.25 mg IV Q4H PRN PRN Reason: agitation/grinding Memantine (Memantine) 5 mg PO BID [facility] Last Admin: 10/15/19 10:55 Dose: Not Given Documented by: Methimazole (Tapazole) 5 mg PO Q8HR [facility] Last Admin: 10/15/19 05:22 Dose: Not Given Documented by: Pravastatin Sodium (Pravachol) 80 mg PO QDAY [facility] Last Admin: 10/15/19 10:55 Dose: Not Given Documented by: Sodium Chloride (Sodium Chloride Flush Syringe 10 Ml) 10 ml IV BID [facility] Last Admin: 10/14/19 21:09 Dose: 10 ml Documented by: Sodium Chloride (Sodium Chloride Flush Syringe 10 Ml) 10 ml IV PRN PRN PRN Reason: LINE FLUSH Review of Systems ROS unobtainable: due to mental status Exam - Constitutional Vitals: Temp Pulse Resp BP Pulse Ox 97.8 F 46 L 20 94/42 94 10/15/19 07:40 10/15/19 07:40 10/15/19 07:40 10/15/19 07:40 10/15/19 08:34 General appearance: Present: no acute distress - EENT Eyes: Present: PERRL, EOM intact - Respiratory Respiratory effort: normal Respiratory: bilateral: CTA - Cardiovascular Rhythm: regular Heart Sounds: Present: S1 & S2 - Abdominal General gastrointestinal: Present: soft, non-tender, other (well-healed vertical incision above umbilicus) Results - Labs CBC & Chem 7: 10/10/19 05:41 10/15/19 05:30 Labs: Abnormal lab results 10/14/19 10/14/19 10/15/19 Range/Units 12:05 21:44 05:30 Potassium 3.3 L (3.6-5.0) mmol/L BUN 5 L (7-17) mg/dL Creatinine 0.4 L (0.7-1.2) mg/dL Glucose 143 H (65-100) mg/dL POC Glucose 125 H 123 H (70-105) Calcium 8.3 L (8.4-10.2) mg/dL 10/15/19 10/15/19 Range/Units 07:39 11:28 Potassium (3.6-5.0) mmol/L BUN (7-17) mg/dL Creatinine (0.7-1.2) mg/dL Glucose (65-100) mg/dL POC Glucose 116 H 122 H (70-105) Calcium (8.4-10.2) mg/dL Assessment and Plan 1. Aspiration - discussed G-tube placement with daughter, vs full comfort measures with IV hydration. Discussed risks and benefits of G-tube. - daughter will think it over and notify us tomorrow of her decision.
[2019-10-15] MEDS: DEXTROSE 5% IN WATER 1,000 ML with POTASSIUM CHLORIDE 20 MEQ IV SCH (17:00)
--- NOTE | 2019-10-15 18:10 | Progress Note ---
Assessment and Plan Patient awake and not following commands. Resting on 2 1/2 litres O2. O2 saturation 99%.Patient weak. No acute respiratory distress. - Patient Problems (1) Encephalopathy Current Visit: Yes Status: Acute Plan to address problem: Patient awake. Weak. Resting on 2 1/2 litres O2. O2 saturation 99%. Not following commands. (2) Aspiration pneumonia Current Visit: Yes Status: Acute Qualifiers: Lung location: unspecified part of lung Plan to address problem: Aspiration precautions. Chest xray reported no acute infiltrates. Patient afebrile. No leukocytosis. (3) Hyperthyroidism Current Visit: Yes Status: Acute Plan to address problem: Management as per primary care. (4) CHEN (acute kidney injury) Current Visit: Yes Status: Acute Plan to address problem: Management as per nephrology. (5) Acidosis Current Visit: Yes Status: Acute Plan to address problem: Hco3 23, Anion gap 14. Recommend to get blood gases. Subjective Date of service: 10/15/19 Principal diagnosis: Ac. hypoxemic resp failure; SIRS; Ac encephalopathy; Aspiration; CHEN Interval history: Patient awake and not following commands. Resting on 2 1/2 litres O2. O2 saturation 99%.Patient weak. No acute respiratory distress. Objective Vital Signs - 12hr 10/15/19 10/15/19 10/15/19 07:40 08:34 13:28 Temperature 97.8 F 97.7 F Pulse Rate 46 L 71 Respiratory 20 20 Rate Blood Pressure 99/56 Blood Pressure 94/42 [left arm] O2 Sat by Pulse 100 94 64 L Oximetry Constitutional: no acute distress, other (elderly looking AAF, normocephalic resting in bed with mildly increased respiratory effort at rest) Eyes: non-icteric ENT: oropharynx moist Neck: supple, no lymphadenopathy, no JVD Effort: mildly labored Ascultation: Bilateral: diminished breath sounds Percussion: Bilateral: not dull Cardiovascular: regular rate and rhythm Gastrointestinal: normoactive bowel sounds, soft, non-tender, non-distended Integumentary: normal Extremities: no cyanosis, no edema, pulses normal, no ischemia or petechiae Neurologic: non-focal exam (grossly), unable to assess Psychiatric: other (encephalopathic) CBC and BMP: 10/10/19 05:41 10/15/19 05:30 ABG, PT/INR, D-dimer: PT/INR, D-dimer PT 13.3 Sec. (12.2-14.9) 10/09/19 10:48 INR 1.02 (0.87-1.13) 10/09/19 10:48 Abnormal lab findings: Abnormal Labs 10/09/19 10/09/19 10/09/19 10:48 10:48 10:48 [place] % (Auto) Seg Neutrophils % Seg Neutrophils # Sodium 149 H Potassium Chloride Carbon Dioxide 20 L BUN 45 H Creatinine 2.0 H Glucose 150 H POC Glucose Lactic Acid 2.20 H* Calcium TSH 50.740 H Free T4 10/09/19 10/09/19 10/09/19 10:48 10:48 13:18 [place] % (Auto) 7.6 H Seg Neutrophils % Seg Neutrophils # Sodium Potassium Chloride Carbon Dioxide BUN Creatinine Glucose POC Glucose Lactic Acid 2.60 H* Calcium TSH Free T4 0.40 L 10/09/19 10/09/19 10/09/19 16:01 17:21 23:06 [place] % (Auto) Seg Neutrophils % Seg Neutrophils # Sodium Potassium Chloride Carbon Dioxide BUN Creatinine Glucose POC Glucose 124 H 130 H Lactic Acid 2.10 H* Calcium TSH Free T4 10/10/19 10/10/19 10/10/19 05:41 05:41 15:59 [place] % (Auto) Seg Neutrophils % 74.5 H Seg Neutrophils # 8.1 H Sodium 152 H Potassium Chloride 109.3 H Carbon Dioxide BUN 35 H Creatinine 1.3 H Glucose 125 H POC Glucose 112 H Lactic Acid Calcium TSH Free T4 10/10/19 10/11/19 10/11/19 18:37 04:50 09:16 [place] % (Auto) Seg Neutrophils % Seg Neutrophils # Sodium Potassium Chloride Carbon Dioxide BUN Creatinine Glucose POC Glucose 108 H 120 H 122 H Lactic Acid Calcium TSH Free T4 10/11/19 10/11/19 10/11/19 10:20 12:02 16:36 [place] % (Auto) Seg Neutrophils % Seg Neutrophils # Sodium 148 H Potassium 3.5 L Chloride 107.4 H Carbon Dioxide 21 L BUN 25 H Creatinine Glucose 113 H POC Glucose 117 H 110 H Lactic Acid Calcium TSH Free T4 10/12/19 10/12/19 10/12/19 04:57 08:12 12:00 [place] % (Auto) Seg Neutrophils % Seg Neutrophils # Sodium 152 H Potassium 3.3 L Chloride 112.5 H Carbon Dioxide BUN 24 H Creatinine Glucose 131 H POC Glucose 120 H 113 H Lactic Acid Calcium TSH Free T4 10/12/19 10/12/19 10/13/19 16:21 21:12 04:45 [place] % (Auto) Seg Neutrophils % Seg Neutrophils # Sodium 149 H Potassium Chloride 113.8 H Carbon Dioxide BUN Creatinine Glucose 207 H POC Glucose 137 H 172 H Lactic Acid Calcium TSH Free T4 10/13/19 10/13/19 10/13/19 07:21 11:45 16:20 [place] % (Auto) Seg Neutrophils % Seg Neutrophils # Sodium Potassium Chloride Carbon Dioxide BUN Creatinine Glucose POC Glucose 187 H 161 H 132 H Lactic Acid Calcium TSH Free T4 10/13/19 10/14/19 10/14/19 22:29 04:10 07:35 [place] % (Auto) Seg Neutrophils % Seg Neutrophils # Sodium Potassium 3.2 L Chloride Carbon Dioxide BUN Creatinine 0.6 L Glucose 167 H POC Glucose 120 H 166 H Lactic Acid Calcium TSH Free T4 10/14/19 10/14/19 10/15/19 12:05 21:44 05:30 [place] % (Auto) Seg Neutrophils % Seg Neutrophils # Sodium Potassium 3.3 L Chloride Carbon Dioxide BUN 5 L Creatinine 0.4 L Glucose 143 H POC Glucose 125 H 123 H Lactic Acid Calcium 8.3 L TSH Free T4 10/15/19 10/15/19 10/15/19 07:39 11:28 16:17 [place] % (Auto) Seg Neutrophils % Seg Neutrophils # Sodium Potassium Chloride Carbon Dioxide BUN Creatinine Glucose POC Glucose 116 H 122 H 127 H Lactic Acid Calcium TSH Free T4 Chest x-ray: report reviewed (Reported no acute findings.), image reviewed Allied health notes reviewed: nursing
[2019-10-15] MEDS: ENOXAPARIN 40 MG/0.4 ML INJ SUB-Q SCH (22:08)
[2019-10-16] MEDS: DEXTROSE 5% IN WATER 1,000 ML with POTASSIUM CHLORIDE 20 MEQ IV SCH ×2 (03:47→16:43)
[2019-10-16 05:01] LABS: BUN/Creatinine Ratio 4; Blood Urea Nitrogen 2 mg/dL (7-17); Calcium 8.6 mg/dL (8.4-10.2); Hemolysis Index 28
[2019-10-16] MEDS: methIMAzole 5 MG TAB PO SCH ×3 (06:22→22:49)
[2019-10-16] MEDS: INSULIN LISPRO 100 UNIT/ML SUB-Q SCH ×4 (08:00→22:48)
--- NOTE | 2019-10-16 10:06 | Gastroenterology Progress Note ---
Assessment and Plan 1. PEG placement 2.Aspiration -discussed G-tube placement (risks vs benefits) with daughter (Jane Bermeo [phone]) vs full comfort measures with IV hydration -after consideration, she has made the decision to proceed with procedure (PEG placement) -will schedule for EGD/PEG tomorrow -NPO after MN -hold lovenox for procedure -INR in am -electrolyte management per primary team -continue supportive care -will follow Subjective Date of service: 10/16/19 Principal diagnosis: PEG placement Interval history: no acute distress Objective - Constitutional Vitals: Temp Pulse Resp BP Pulse Ox 98.3 F 91 H 18 131/71 91 10/16/19 07:14 10/16/19 07:14 10/16/19 09:45 10/16/19 07:14 10/16/19 09:45 General appearance: no acute distress - Respiratory Respiratory effort: normal - Cardiovascular Rhythm: regular - Gastrointestinal General gastrointestinal: Present: soft, non-distended, normal bowel sounds - Neurologic Neurological: other (alert) - Labs CBC & Chem 7: 10/10/19 05:41 10/16/19 04:09 Labs: Laboratory Results - last 24 hr 10/15/19 10/15/19 10/15/19 11:28 16:17 22:10 Sodium Potassium Chloride Carbon Dioxide Anion Gap BUN Creatinine Estimated GFR BUN/Creatinine Ratio Glucose POC Glucose 122 H 127 H 154 H Calcium Phosphorus Magnesium 10/16/19 10/16/19 04:09 07:29 Sodium 138 Potassium 3.8 Chloride 103.8 Carbon Dioxide 25 Anion Gap 13 BUN 2 L Creatinine 0.5 L Estimated GFR > 60 BUN/Creatinine Ratio 4 Glucose 163 H POC Glucose 154 H Calcium 8.6 Phosphorus 1.80 L Magnesium 1.40 L
[2019-10-16] MEDS: ASPIRIN EC 81 MG TAB PO SCH (10:24)
[2019-10-16] MEDS: DONEPEZIL 10 MG TAB PO SCH (10:24)
[2019-10-16] MEDS: LORATADINE (NF) 10 MG TAB PO SCH (10:24)
[2019-10-16] MEDS: CALCIUM CARBONATE 1250 MG TAB PO SCH (10:25)
[2019-10-16] MEDS: FAMOTIDINE 20 MG TAB PO SCH (10:25)
[2019-10-16] MEDS: MEMANTINE 5 MG TAB PO SCH ×2 (10:25→22:49)
[2019-10-16] MEDS: PRAVASTATIN 80 MG TAB PO SCH (10:26)
--- NOTE | 2019-10-16 15:04 | Progress Note ---
Assessment and Plan Assessment and plan: Patient is a 79-year-old woman from assisted living facility with a history of dementia, hypertension, thyroid disorder, diabetes mellitus type 2 and DNR at her assisted living facility who presented to [facility] ED with choking and having trouble breathing. * pChest x-ray no acute findings Acute metabolic encephalopathy supportive care, CT head neg, given dementia- daughter is not interested in MRI, she has refused obtain EEG, neuro consult appreciated, likely metabolic due to dehydration at baseline, she is non verbal, but is able to eat and is fully dependent, currently she only opens eyes occasionally and has not woken up Acute hypoxic Respiratory failure now weaned to NC repeat CXR is again negative, based on her clinical presentation is most likely that the patient aspirated. Discontinue antibiotics Hyperthyroidism tfts show elevated TSH at 50 and low free T4 at 0.4. When patient able to tolerate p.o., her methimazole dose will be reduced sacral excoriations -wound care benadryl for itching Bruxism Ativan as needed CHEN/hypernatremia,dehydration, vasomotor nephropathy treated with IV fluids Hypokalemia Replete IV Dysphagia is chronic and worseing, daughter agreeable to PEG, Gi consulted DVT prophylaxis with Lovenox DNR/DNI PEG tomorrow then [facility]/c [facility] History Interval history: Patient was seen and examined. Follow-up on current diagnosis FTT. No overnight events reported to me. Imaging, nursing note, chart, labs and old chart reviewed. Saw Daughter at Nursing station early this morning. Hospitalist Physical - Physical exam Narrative exam: Gen: chronically disable, awake, not orienteated HEENT: NCAT, EOMI, PERRL, OP Clear Neck: supple, no adenopathy, no thyromegaly, no JVD CVS/Heart: RRR, normal S1S2, pulses present bilaterally Chest/Lungs: CTA B, Symmetrical chest expansion, good air entry bilaterally GI/Abdomen: soft, NTND, good bowel sounds, no guarding or rebound /Bladder: no suprapubic tenderness, no CVA or paraspinal tenderness Extermity/Skin: no c/c/e, no obvious rash MSK: contracted ex Neuro: CN 2-12 grossly intact, doesn't follow commands Psych: calm but confused - Constitutional Vitals: Temp Pulse Resp BP Pulse Ox 98.8 F 82 20 133/73 93 10/16/19 13:04 10/16/19 13:06 10/16/19 13:04 10/16/19 13:04 10/16/19 13:06 General appearance: Absent: mild distress Results - Labs CBC & Chem 7: 10/10/19 05:41 10/16/19 04:09 Labs: Laboratory Last Values WBC 10.8 K/mm3 (4.5-11.0) 10/10/19 05:41 RBC 3.84 M/mm3 (3.65-5.03) 10/10/19 05:41 Hgb 11.6 gm/dl (10.1-14.3) 10/10/19 05:41 Hct 36.1 % (30.3-42.9) 10/10/19 05:41 MCV 94 fl (79-97) 10/10/19 05:41 MCH 30 pg (28-32) 10/10/19 05:41 MCHC 32 % (30-34) 10/10/19 05:41 RDW 14.5 % (13.2-15.2) 10/10/19 05:41 Plt Count 361 K/mm3 (140-440) 10/10/19 05:41 Lymph % (Auto) 17.6 % (13.4-35.0) 10/10/19 05:41 [place] % (Auto) 6.9 % (0.0-7.3) 10/10/19 05:41 Eos % (Auto) 0.4 % (0.0-4.3) 10/10/19 05:41 Baso % (Auto) 0.6 % (0.0-1.8) 10/10/19 05:41 Lymph # 1.9 K/mm3 (1.2-5.4) 10/10/19 05:41 [place] # 0.7 K/mm3 (0.0-0.8) 10/10/19 05:41 Eos # 0.0 K/mm3 (0.0-0.4) 10/10/19 05:41 Baso # 0.1 K/mm3 (0.0-0.1) 10/10/19 05:41 Seg Neutrophils % 74.5 % (40.0-70.0) H 10/10/19 05:41 Seg Neutrophils # 8.1 K/mm3 (1.8-7.7) H 10/10/19 05:41 PT 13.3 Sec. (12.2-14.9) 10/09/19 10:48 INR 1.02 (0.87-1.13) 10/09/19 10:48 APTT 25.1 Sec. (24.2-36.6) 10/09/19 10:48 Sodium 138 mmol/L (137-145) 10/16/19 04:09 Potassium 3.8 mmol/L (3.6-5.0) 10/16/19 04:09 Chloride 103.8 mmol/L (98-107) 10/16/19 04:09 Carbon Dioxide 25 mmol/L (22-30) 10/16/19 04:09 Anion Gap 13 mmol/L 10/16/19 04:09 BUN 2 mg/dL (7-17) L 10/16/19 04:09 Creatinine 0.5 mg/dL (0.7-1.2) L 10/16/19 04:09 Estimated GFR > 60 ml/min 10/16/19 04:09 BUN/Creatinine Ratio 4 % 10/16/19 04:09 Glucose 163 mg/dL (65-100) H 10/16/19 04:09 POC Glucose 156 (70-105) H 10/16/19 11:20 Lactic Acid 1.00 mmol/L (0.7-2.0) 10/12/19 15:17 Calcium 8.6 mg/dL (8.4-10.2) 10/16/19 04:09 Phosphorus 1.80 mg/dL (2.5-4.5) L 10/16/19 04:09 Magnesium 1.40 mg/dL (1.7-2.3) L 10/16/19 04:09 Total Bilirubin 0.60 mg/dL (0.1-1.2) 10/09/19 10:48 AST 18 units/L (5-40) 10/09/19 10:48 ALT 21 units/L (7-56) 10/09/19 10:48 Alkaline Phosphatase 81 units/L (35-129) 10/09/19 10:48 Total Creatine Kinase 91 units/L (30-135) 10/09/19 10:48 Total Protein 8.0 g/dL (6.3-8.2) 10/09/19 10:48 Albumin 4.1 g/dL (3.9-5) 10/09/19 10:48 Albumin/Globulin Ratio 1.1 % 10/09/19 10:48 TSH 50.740 mlU/mL (0.270-4.200) H 10/09/19 10:48 Free T4 0.40 ng/dL (0.76-1.46) L 10/09/19 10:48 Urine Color Yellow (Yellow) 10/09/19 12:00 Urine Turbidity Slightly-cloudy (Clear) 10/09/19 12:00 Urine pH 5.0 (5.0-7.0) 10/09/19 12:00 Ur Specific [place] 1.017 (1.003-1.030) 10/09/19 12:00 Urine Protein 30 mg/dl mg/dL (Negative) 10/09/19 12:00 Urine Glucose (UA) Neg mg/dL (Negative) 10/09/19 12:00 Urine Ketones Neg mg/dL (Negative) 10/09/19 12:00 Urine Blood Neg (Negative) 10/09/19 12:00 Urine Nitrite Neg (Negative) 10/09/19 12:00 Urine Bilirubin Neg (Negative) 10/09/19 12:00 Urine Urobilinogen < 2.0 mg/dL (<2.0) 10/09/19 12:00 Ur Leukocyte Esterase Neg (Negative) 10/09/19 12:00 Urine WBC (Auto) 1.0 /HPF (0.0-6.0) 10/09/19 12:00 Urine RBC (Auto) 2.0 /HPF (0.0-6.0) 10/09/19 12:00 U Epithel Cells (Auto) 4.0 /HPF (0-13.0) 10/09/19 12:00 Urine Mucus Few /HPF 10/09/19 12:00 Active Medications - Current Medications Current Medications: Generic Name Dose Route Start Last Admin Trade Name Freq PRN Reason Stop Dose Admin Albuterol 2.5 mg 10/09/19 12:55 Proventil IH Q3HRT PRN Shortness Of Breath Aspirin 81 mg 10/10/19 10:00 10/16/19 10:24 Halfprin Ec PO Not Given DAILY LEONARDO Calcium Carbonate/Glycine 1,250 mg 10/10/19 10:00 10/16/19 10:25 Oscal PO Not Given QDAY LEONARDO Dextrose 50 ml 10/09/19 14:07 D50w (25gm) Syringe IV Q30MIN PRN Hypoglycemia Protocol Donepezil HCl 10 mg 10/10/19 10:00 10/16/19 10:24 Aricept PO Not Given DAILY LEONARDO Enoxaparin Sodium 40 mg 10/15/19 22:00 10/15/19 22:08 Enoxaparin SUB-Q 40 mg QDAY@2200 LEONARDO Administration Famotidine 20 mg 10/12/19 14:00 10/16/19 10:25 Pepcid PO Not Given QDAY [facility] Potassium Chloride 20 meq/ 1,010 mls @ 100 mls/hr 10/15/19 13:00 10/16/19 03:47 Dextrose IV 100 mls/hr DIRECT LEONARDO Administration Insulin Human Lispro 0 unit 10/09/19 16:30 10/16/19 12:00 Humalog SUB-Q 1 unit ACHS LEONARDO Administration Protocol Loratadine 10 mg 10/10/19 10:00 10/16/19 10:24 Claritin PO Not Given DAILY [facility] Lorazepam 0.25 mg 10/11/19 14:29 Ativan IV Q4H PRN agitation/grinding Memantine 5 mg 10/09/19 22:00 10/16/19 10:25 Memantine PO Not Given BID LEONARDO Methimazole 5 mg 10/10/19 22:00 10/16/19 06:22 Tapazole PO 5 mg Q8HR LEONARDO Administration Pravastatin Sodium 80 mg 10/10/19 10:00 10/16/19 10:26 Pravachol PO Not Given QDAY [facility] Sodium Chloride 10 ml 10/09/19 22:00 10/16/19 09:40 Sodium Chloride Flush Syringe 10 Ml IV 10 ml BID LEONARDO Administration Sodium Chloride 10 ml 10/09/19 12:55 Sodium Chloride Flush Syringe 10 Ml IV PRN PRN LINE FLUSH Nutrition/Malnutrition Assess - Dietary Evaluation Nutrition/Malnutrition Findings: Nutrition Notes Start: 10/10/19 10:31 Freq: Status: Active Protocol: Document 10/15/19 13:50 LM (Rec: 10/15/19 14:01 LM [id number]) Nutrition Notes Initial or Follow up Reassessment Current Diagnosis Acute Kidney Injury,Decubitus( Pressure Ulcer),Diabetes, Hypertension,Respiratory Failure Other Pertinent Diagnosis Sacral wound, dysphagia, dementia, encephalopathy, debility, pneu Current Diet NPO Labs/Tests K 3.3 BUN 5 Cr 0.4 BG 143 Pertinent Medications Reviewed Height 4 ft 6 in Weight 60.2 kg [place] Body Weight (kg) 31.81 BMI 32.0 Subjective/Other Information Pt still NPO. Per chart pt possibly getting PEG. Percent of energy/protein needs met: 0%/0% Burn Absent Trauma Absent GI Symptoms None Current % PO Negligible Minimum of two criteria No physical signs of malnutrition #2 Nutrition Diagnosis Inadequate oral intake Etiology dysphagia Diagnosis Progress(for reassessment Continues documentation) #1 Nutrition Diagnosis Increased nutrient needs ( specify in comment below) Diagnosis Progress(for reassessment Continues documentation) Is patient on ventilator? No Is Patient Ambulatory and/or Out of Bed No REE-([facility]-confined to bed) 1096.667 Calculation Used for Recommendations [facility] Additional Notes Protein: 37-69g (0.8-1.5g/kg) AdjBw 46kg pt with CHEN and wound Fluid: 1 ml/kcal or per MD Nutrition Intervention Change Diet Order: Recommend TF Nutrition Support: Glucerna 1.2 at 40 ml/hr Flush 65 ml q4hr Kcal 1,152 Protein (gm) 57 Fluid (mL) 773 Goal #1 TF start when medically feasible Anticipated Discharge Needs: TF Follow-Up By: 10/17/19 Additional Comments F/U for PEG placement/POC
--- NOTE | 2019-10-16 18:08 | Progress Note ---
Assessment and Plan Patient awake and not following commands. Resting on 2 1/2 litres O2. O2 saturation 93%.Patient weak. No acute respiratory distress. - Patient Problems (1) Encephalopathy Current Visit: Yes Status: Acute Plan to address problem: Patient awake. Weak. Resting on 2 1/2 litres O2. O2 saturation 93%. Not following commands. (2) Aspiration pneumonia Current Visit: Yes Status: Acute Qualifiers: Lung location: unspecified part of lung Plan to address problem: Aspiration precautions. Chest xray reported no acute infiltrates. Patient afebrile. No leukocytosis. (3) Hyperthyroidism Current Visit: Yes Status: Acute Plan to address problem: Management as per primary care. (4) CHEN (acute kidney injury) Current Visit: Yes Status: Acute Plan to address problem: Management as per nephrology. (5) Acidosis Current Visit: Yes Status: Acute Plan to address problem: Hco3 21, Anion gap 11. ABG On room air. POC ABG pH 7.442 (7.35-7.45) 10/16/19 16:06 POC ABG pCO2 34.8 (35-45) L 10/16/19 16:06 POC ABG pO2 76 (80-105) L 10/16/19 16:06 POC ABG HCO3 23.7 (22-26 mml/L) 10/16/19 16:06 POC ABG Total CO2 25 (23-27mmol/L) 10/16/19 16:06 POC ABG O2 Sat 96 10/16/19 16:06 Subjective Date of service: 10/16/19 Principal diagnosis: PEG placement Interval history: Patient awake and not following commands. Resting on 2 1/2 litres O2. O2 saturation 93%.Patient weak. No acute respiratory distress. Objective Vital Signs - 12hr 10/16/19 10/16/19 10/16/19 07:14 09:45 10:00 Temperature 98.3 F Pulse Rate 91 H 95 H Respiratory 18 18 Rate Blood Pressure 131/71 O2 Sat by Pulse 91 91 96 Oximetry 10/16/19 10/16/19 13:04 13:06 Temperature 98.8 F Pulse Rate 88 82 Respiratory 20 Rate Blood Pressure 133/73 O2 Sat by Pulse 87 93 Oximetry Constitutional: no acute distress, alert, other (Awake. Not following commands.) Eyes: non-icteric ENT: oropharynx moist Neck: supple, no lymphadenopathy, no JVD Effort: mildly labored Ascultation: Bilateral: diminished breath sounds Percussion: Bilateral: not dull Cardiovascular: regular rate and rhythm Gastrointestinal: normoactive bowel sounds, soft, non-tender, non-distended Integumentary: normal Extremities: no cyanosis, no edema, pulses normal, no ischemia or petechiae Neurologic: non-focal exam (grossly), unable to assess Psychiatric: other (encephalopathic) CBC and BMP: 10/10/19 05:41 10/16/19 04:09 ABG, PT/INR, D-dimer: ABG POC ABG pH 7.442 (7.35-7.45) 10/16/19 16:06 POC ABG pCO2 34.8 (35-45) L 10/16/19 16:06 POC ABG pO2 76 (80-105) L 10/16/19 16:06 POC ABG HCO3 23.7 (22-26 mml/L) 10/16/19 16:06 POC ABG Total CO2 25 (23-27mmol/L) 10/16/19 16:06 POC ABG O2 Sat 96 10/16/19 16:06 PT/INR, D-dimer PT 13.3 Sec. (12.2-14.9) 10/09/19 10:48 INR 1.02 (0.87-1.13) 10/09/19 10:48 Abnormal lab findings: Abnormal Labs 10/09/19 10/09/19 10/09/19 10:48 10:48 10:48 [place] % (Auto) Seg Neutrophils % Seg Neutrophils # POC ABG pCO2 POC ABG pO2 Sodium 149 H Potassium Chloride Carbon Dioxide 20 L BUN 45 H Creatinine 2.0 H Glucose 150 H POC Glucose Lactic Acid 2.20 H* Calcium Phosphorus Magnesium TSH 50.740 H Free T4 10/09/19 10/09/19 10/09/19 10:48 10:48 13:18 [place] % (Auto) 7.6 H Seg Neutrophils % Seg Neutrophils # POC ABG pCO2 POC ABG pO2 Sodium Potassium Chloride Carbon Dioxide BUN Creatinine Glucose POC Glucose Lactic Acid 2.60 H* Calcium Phosphorus Magnesium TSH Free T4 0.40 L 10/09/19 10/09/19 10/09/19 16:01 17:21 23:06 [place] % (Auto) Seg Neutrophils % Seg Neutrophils # POC ABG pCO2 POC ABG pO2 Sodium Potassium Chloride Carbon Dioxide BUN Creatinine Glucose POC Glucose 124 H 130 H Lactic Acid 2.10 H* Calcium Phosphorus Magnesium TSH Free T4 10/10/19 10/10/19 10/10/19 05:41 05:41 15:59 [place] % (Auto) Seg Neutrophils % 74.5 H Seg Neutrophils # 8.1 H POC ABG pCO2 POC ABG pO2 Sodium 152 H Potassium Chloride 109.3 H Carbon Dioxide BUN 35 H Creatinine 1.3 H Glucose 125 H POC Glucose 112 H Lactic Acid Calcium Phosphorus Magnesium TSH Free T4 10/10/19 10/11/19 10/11/19 18:37 04:50 09:16 [place] % (Auto) Seg Neutrophils % Seg Neutrophils # POC ABG pCO2 POC ABG pO2 Sodium Potassium Chloride Carbon Dioxide BUN Creatinine Glucose POC Glucose 108 H 120 H 122 H Lactic Acid Calcium Phosphorus Magnesium TSH Free T4 10/11/19 10/11/19 10/11/19 10:20 12:02 16:36 [place] % (Auto) Seg Neutrophils % Seg Neutrophils # POC ABG pCO2 POC ABG pO2 Sodium 148 H Potassium 3.5 L Chloride 107.4 H Carbon Dioxide 21 L BUN 25 H Creatinine Glucose 113 H POC Glucose 117 H 110 H Lactic Acid Calcium Phosphorus Magnesium TSH Free T4 10/12/19 10/12/19 10/12/19 04:57 08:12 12:00 [place] % (Auto) Seg Neutrophils % Seg Neutrophils # POC ABG pCO2 POC ABG pO2 Sodium 152 H Potassium 3.3 L Chloride 112.5 H Carbon Dioxide BUN 24 H Creatinine Glucose 131 H POC Glucose 120 H 113 H Lactic Acid Calcium Phosphorus Magnesium TSH Free T4 10/12/19 10/12/19 10/13/19 16:21 21:12 04:45 [place] % (Auto) Seg Neutrophils % Seg Neutrophils # POC ABG pCO2 POC ABG pO2 Sodium 149 H Potassium Chloride 113.8 H Carbon Dioxide BUN Creatinine Glucose 207 H POC Glucose 137 H 172 H Lactic Acid Calcium Phosphorus Magnesium TSH Free T4 10/13/19 10/13/19 10/13/19 07:21 11:45 16:20 [place] % (Auto) Seg Neutrophils % Seg Neutrophils # POC ABG pCO2 POC ABG pO2 Sodium Potassium Chloride Carbon Dioxide BUN Creatinine Glucose POC Glucose 187 H 161 H 132 H Lactic Acid Calcium Phosphorus Magnesium TSH Free T4 10/13/19 10/14/19 10/14/19 22:29 04:10 07:35 [place] % (Auto) Seg Neutrophils % Seg Neutrophils # POC ABG pCO2 POC ABG pO2 Sodium Potassium 3.2 L Chloride Carbon Dioxide BUN Creatinine 0.6 L Glucose 167 H POC Glucose 120 H 166 H Lactic Acid Calcium Phosphorus Magnesium TSH Free T4 10/14/19 10/14/19 10/15/19 12:05 21:44 05:30 [place] % (Auto) Seg Neutrophils % Seg Neutrophils # POC ABG pCO2 POC ABG pO2 Sodium Potassium 3.3 L Chloride Carbon Dioxide BUN 5 L Creatinine 0.4 L Glucose 143 H POC Glucose 125 H 123 H Lactic Acid Calcium 8.3 L Phosphorus Magnesium TSH Free T4 10/15/19 10/15/19 10/15/19 07:39 11:28 16:17 [place] % (Auto) Seg Neutrophils % Seg Neutrophils # POC ABG pCO2 POC ABG pO2 Sodium Potassium Chloride Carbon Dioxide BUN Creatinine Glucose POC Glucose 116 H 122 H 127 H Lactic Acid Calcium Phosphorus Magnesium TSH Free T4 10/15/19 10/16/19 10/16/19 22:10 04:09 07:29 [place] % (Auto) Seg Neutrophils % Seg Neutrophils # POC ABG pCO2 POC ABG pO2 Sodium Potassium Chloride Carbon Dioxide BUN 2 L Creatinine 0.5 L Glucose 163 H POC Glucose 154 H 154 H Lactic Acid Calcium Phosphorus 1.80 L Magnesium 1.40 L TSH Free T4 10/16/19 10/16/19 10/16/19 11:20 16:06 16:25 [place] % (Auto) Seg Neutrophils % Seg Neutrophils # POC ABG pCO2 34.8 L POC ABG pO2 76 L Sodium Potassium Chloride Carbon Dioxide BUN Creatinine Glucose POC Glucose 156 H 125 H Lactic Acid Calcium Phosphorus Magnesium TSH Free T4 Allied health notes reviewed: nursing
[2019-10-16] MEDS: ENOXAPARIN 40 MG/0.4 ML INJ SUB-Q SCH (22:49)
[2019-10-17 06:21] LABS: INR 0.97 (0.87-1.13)
[2019-10-17 06:25] LABS: BUN/Creatinine Ratio 5; Blood Urea Nitrogen 2 mg/dL (7-17); Calcium 8.8 mg/dL (8.4-10.2); Hemolysis Index 36
[2019-10-17] MEDS: INSULIN LISPRO 100 UNIT/ML SUB-Q SCH ×4 (07:30→21:51)
[2019-10-17] MEDS: methIMAzole 5 MG TAB PO SCH ×3 (07:33→21:51)
[2019-10-17] MEDS: ASPIRIN EC 81 MG TAB PO SCH ×2 (09:39→09:44)
[2019-10-17] MEDS: CALCIUM CARBONATE 1250 MG TAB PO SCH ×2 (09:39→09:45)
[2019-10-17] MEDS: PRAVASTATIN 80 MG TAB PO SCH ×2 (09:39→09:45)
[2019-10-17] MEDS: MEMANTINE 5 MG TAB PO SCH ×3 (09:39→21:52)
[2019-10-17] MEDS: FAMOTIDINE 20 MG TAB PO SCH ×2 (09:39→09:46)
[2019-10-17] MEDS: DONEPEZIL 10 MG TAB PO SCH ×2 (09:39→09:42)
[2019-10-17] MEDS: LORATADINE (NF) 10 MG TAB PO SCH ×2 (09:39→09:44)
--- NOTE | 2019-10-17 11:19 | Anesthesia Day of Surgery ---
Anesthesia Day of Surgery - Day of Surgery Patient Examined: Yes Patient H&P Reviewed: Yes Patient is NPO: Yes
[2019-10-17] MEDS ORDERED: SODIUM CHLORIDE 0.9% 1000 ML 1,000 ML ONE (11:23)
--- NOTE | 2019-10-17 11:24 | Anesthesia Consultation ---
Anesthesia Consult and Med Hx Date of service: 10/17/19 - Airway Anesthetic Teeth Evaluation: Poor (? Loose teeth per daughter. Unable to assess airway) - Pre-Operative Health Status ASA Pre-Surgery Classification: ASA4 Proposed Anesthetic Plan: MAC - Pulmonary Hx Respiratory Symptoms: Yes Hx Pneumonia: Yes (Recent aspiration pneumonia; was intubated) - Cardiovascular System Hx Hypertension: Yes - Central Nervous System Hx Psychiatric Problems: Yes (Alzheimers Dementia, Encephalopathy, Nonverbal, Dysphagia) - Endocrine Hx Non-Insulin Dependent Diabetes: Yes Hx Hyperthyroidism: Yes - Additional Comments Anesthesia Medical History Comments: 79 YO Female Hospice Care Patient with HTN, DM, Hyperthyroidism, Alzheimers Dementia, Encephalopathy, Nonverbal, Dysphagia
[2019-10-17] MEDS ORDERED: SODIUM CHLORIDE 0.9% 1000 ML 1,000 ML IV SCH (12:00)
[2019-10-17] MEDS ORDERED: ceFAZolin/Water 2 GM/20 ML 2 GM/20 ML SYRINGE IV NR (12:00)
[2019-10-17] MEDS ORDERED: LIDOCAINE MPF (2%) 20 MG/1 ML VIAL 5 ML ONE (12:00)
[2019-10-17] MEDS ORDERED: PROPOFOL 200 MG/20 ML VIAL IV ONE (12:29)
--- NOTE | 2019-10-17 12:57 | Post Operative Note ---
Pre-op diagnosis: Aspiration pneumonia Post-op diagnosis: other (Normal EGD, successful G-tube placement) Findings: 1. Normal EGD 2. Successful 20Fr G-tube placement Procedure: EGD/PEG Anesthesia: MAC Surgeon: DAVID LUCIANO Estimated blood loss: none Pathology: none Condition: stable Disposition: floor (May use G-tube after 4 hrs)
--- NOTE | 2019-10-17 13:13 | Operative Report ---
PROCEDURE: Upper endoscopy with G-tube placement. PREOPERATIVE DIAGNOSES: Oropharyngeal dysphagia due to dementia, with aspiration pneumonia. DESCRIPTION OF PROCEDURE: Indications, risks and benefits were explained and consent was obtained from the patient's daughter. The patient was placed back on exam table and sedated. Video upper endoscope was passed through the mouth and oropharynx into the descending duodenum and then withdrawn into the gastric lumen. There, an appropriate location was transilluminated on the abdominal wall with 1:1 ballottement. This was prepped and draped in a sterile fashion. The area was anesthetized with 3 mL of 1% Xylocaine infiltrated into the tissues using the safe track technique. Trocar was placed percutaneously into the gastric lumen and a wire was passed through this. This was grasped with a snare and pulled out the mouth. A 20-Scottish G-tube was attached to the wire and pulled through the mouth and oropharynx into the gastric lumen and out the skin. External bumper was fixed at 4 cm. Placement was confirmed by repeat endoscopy. FINDINGS: 1. Normal upper endoscopy. 2. Successful 20-Scottish G-tube placement. The patient tolerated the procedure well without immediate complications. IMPRESSION: 1. Normal endoscopy. 2. Successful G-tube placement. PLAN: 1. Nutrition consult for tube feeding regimen. 2. Keep n.p.o. to prevent recurrent aspiration. JOB# [id number] HRC/NTS
--- NOTE | 2019-10-17 13:49 | Post Anesthesia Evaluation ---
- Post Anesthesia Evaluation Patient Participated: Yes Airway Patent: Yes Stable Respiratory Function: Yes Nausea/Vomiting: No Temp > 96.8F: Yes Pain Manageable: Yes Adequeate Hydration: Yes Anesthesia Complications: No Block Receding Appropriately: Not Applicable Patient on Ventilator: No
--- NOTE | 2019-10-17 14:03 | Progress Note ---
Assessment and Plan Patient sleeping. Resting on 2 1/2 litres O2. O2 saturation 100%.Patient weak. No acute respiratory distress. Patient afebrile. No leukocytosis. - Patient Problems (1) Encephalopathy Current Visit: Yes Status: Acute Plan to address problem: Patient sleeping. Weak. Resting on 2 1/2 litres O2. O2 saturation 100%. (2) Aspiration pneumonia Current Visit: Yes Status: Acute Qualifiers: Lung location: unspecified part of lung Plan to address problem: Aspiration precautions. Chest xray reported no acute infiltrates. Patient afebrile. No leukocytosis. (3) Hyperthyroidism Current Visit: Yes Status: Acute Plan to address problem: Management as per primary care. (4) CHEN (acute kidney injury) Current Visit: Yes Status: Acute Plan to address problem: Management as per nephrology. (5) Acidosis Current Visit: Yes Status: Acute Plan to address problem: Hco3 21, Anion gap 11. ABG On room air. POC ABG pH 7.442 (7.35-7.45) 10/16/19 16:06 POC ABG pCO2 34.8 (35-45) L 10/16/19 16:06 POC ABG pO2 76 (80-105) L 10/16/19 16:06 POC ABG HCO3 23.7 (22-26 mml/L) 10/16/19 16:06 POC ABG Total CO2 25 (23-27mmol/L) 10/16/19 16:06 POC ABG O2 Sat 96 10/16/19 16:06 Subjective Date of service: 10/17/19 Principal diagnosis: PEG placement Interval history: Patient sleeping. Resting on 2 1/2 litres O2. O2 saturation 100%.Patient weak. No acute respiratory distress. Patient afebrile. No leukocytosis. Objective Vital Signs - 12hr 10/17/19 10/17/19 10/17/19 02:11 02:12 07:17 Temperature 98.6 F 98.7 F Pulse Rate 59 L 59 L 72 Respiratory 22 20 Rate Blood Pressure 115/55 129/70 O2 Sat by Pulse 79 L 85 100 Oximetry 10/17/19 10/17/19 10/17/19 10:00 10:18 11:20 Temperature 98.4 F Pulse Rate 72 88 Respiratory 17 Rate Blood Pressure 104/46 O2 Sat by Pulse 97 100 Oximetry 10/17/19 10/17/19 10/17/19 11:30 12:56 13:00 Temperature 98.4 F 97.6 F Pulse Rate 88 93 H 87 Respiratory 17 14 15 Rate Blood Pressure 104/46 136/54 140/70 O2 Sat by Pulse 100 100 100 Oximetry 10/17/19 10/17/19 10/17/19 13:09 13:21 13:27 Temperature Pulse Rate 86 89 89 Respiratory 19 20 20 Rate Blood Pressure 146/48 137/60 136/58 O2 Sat by Pulse 100 100 100 Oximetry 10/17/19 10/17/19 13:37 13:49 Temperature Pulse Rate 79 86 Respiratory 19 Rate Blood Pressure 116/66 108/78 O2 Sat by Pulse 100 Oximetry Constitutional: no acute distress, asleep Eyes: non-icteric ENT: oropharynx moist Neck: supple, no lymphadenopathy, no JVD Effort: mildly labored Ascultation: Bilateral: diminished breath sounds Percussion: Bilateral: not dull Cardiovascular: regular rate and rhythm Gastrointestinal: normoactive bowel sounds, soft, non-tender, non-distended Integumentary: normal Extremities: no cyanosis, no edema, pulses normal, no ischemia or petechiae Neurologic: non-focal exam (grossly), unable to assess Psychiatric: other (encephalopathic) CBC and BMP: 10/10/19 05:41 10/17/19 05:07 ABG, PT/INR, D-dimer: ABG POC ABG pH 7.442 (7.35-7.45) 10/16/19 16:06 POC ABG pCO2 34.8 (35-45) L 10/16/19 16:06 POC ABG pO2 76 (80-105) L 10/16/19 16:06 POC ABG HCO3 23.7 (22-26 mml/L) 10/16/19 16:06 POC ABG Total CO2 25 (23-27mmol/L) 10/16/19 16:06 POC ABG O2 Sat 96 10/16/19 16:06 PT/INR, D-dimer PT 12.8 Sec. (12.2-14.9) 10/17/19 05:07 INR 0.97 (0.87-1.13) 10/17/19 05:07 Abnormal lab findings: Abnormal Labs 11/10/09/19 10/09/19 10:48 10:48 10:48 Amelia % (Auto) Seg Neutrophils % Seg Neutrophils # POC ABG pCO2 POC ABG pO2 Sodium 149 H Potassium Chloride Carbon Dioxide 20 L BUN 45 H Creatinine 2.0 H Glucose 150 H POC Glucose Lactic Acid 2.20 H* Calcium Phosphorus Magnesium TSH 50.740 H Free T4 10/09/19 10/09/19 10/09/19 10:48 10:48 13:18 Amelia % (Auto) 7.6 H Seg Neutrophils % Seg Neutrophils # POC ABG pCO2 POC ABG pO2 Sodium Potassium Chloride Carbon Dioxide BUN Creatinine Glucose POC Glucose Lactic Acid 2.60 H* Calcium Phosphorus Magnesium TSH Free T4 0.40 L 10/09/19 10/09/19 10/09/19 16:01 17:21 23:06 Amelia % (Auto) Seg Neutrophils % Seg Neutrophils # POC ABG pCO2 POC ABG pO2 Sodium Potassium Chloride Carbon Dioxide BUN Creatinine Glucose POC Glucose 124 H 130 H Lactic Acid 2.10 H* Calcium Phosphorus Magnesium TSH Free T4 10/10/19 10/10/19 10/10/19 05:41 05:41 15:59 Amelia % (Auto) Seg Neutrophils % 74.5 H Seg Neutrophils # 8.1 H POC ABG pCO2 POC ABG pO2 Sodium 152 H Potassium Chloride 109.3 H Carbon Dioxide BUN 35 H Creatinine 1.3 H Glucose 125 H POC Glucose 112 H Lactic Acid Calcium Phosphorus Magnesium TSH Free T4 10/10/19 10/11/19 10/11/19 18:37 04:50 09:16 Amelia % (Auto) Seg Neutrophils % Seg Neutrophils # POC ABG pCO2 POC ABG pO2 Sodium Potassium Chloride Carbon Dioxide BUN Creatinine Glucose POC Glucose 108 H 120 H 122 H Lactic Acid Calcium Phosphorus Magnesium TSH Free T4 10/11/19 10/11/19 10/11/19 10:20 12:02 16:36 Amelia % (Auto) Seg Neutrophils % Seg Neutrophils # POC ABG pCO2 POC ABG pO2 Sodium 148 H Potassium 3.5 L Chloride 107.4 H Carbon Dioxide 21 L BUN 25 H Creatinine Glucose 113 H POC Glucose 117 H 110 H Lactic Acid Calcium Phosphorus Magnesium TSH Free T4 10/12/19 10/12/19 10/12/19 04:57 08:12 12:00 Amelia % (Auto) Seg Neutrophils % Seg Neutrophils # POC ABG pCO2 POC ABG pO2 Sodium 152 H Potassium 3.3 L Chloride 112.5 H Carbon Dioxide BUN 24 H Creatinine Glucose 131 H POC Glucose 120 H 113 H Lactic Acid Calcium Phosphorus Magnesium TSH Free T4 10/12/19 10/12/19 10/13/19 16:21 21:12 04:45 Amelia % (Auto) Seg Neutrophils % Seg Neutrophils # POC ABG pCO2 POC ABG pO2 Sodium 149 H Potassium Chloride 113.8 H Carbon Dioxide BUN Creatinine Glucose 207 H POC Glucose 137 H 172 H Lactic Acid Calcium Phosphorus Magnesium TSH Free T4 10/13/19 10/13/19 10/13/19 07:21 11:45 16:20 Amelia % (Auto) Seg Neutrophils % Seg Neutrophils # POC ABG pCO2 POC ABG pO2 Sodium Potassium Chloride Carbon Dioxide BUN Creatinine Glucose POC Glucose 187 H 161 H 132 H Lactic Acid Calcium Phosphorus Magnesium TSH Free T4 10/13/19 10/14/19 10/14/19 22:29 04:10 07:35 Amelia % (Auto) Seg Neutrophils % Seg Neutrophils # POC ABG pCO2 POC ABG pO2 Sodium Potassium 3.2 L Chloride Carbon Dioxide BUN Creatinine 0.6 L Glucose 167 H POC Glucose 120 H 166 H Lactic Acid Calcium Phosphorus Magnesium TSH Free T4 10/14/19 10/14/19 10/15/19 12:05 21:44 05:30 Amelia % (Auto) Seg Neutrophils % Seg Neutrophils # POC ABG pCO2 POC ABG pO2 Sodium Potassium 3.3 L Chloride Carbon Dioxide BUN 5 L Creatinine 0.4 L Glucose 143 H POC Glucose 125 H 123 H Lactic Acid Calcium 8.3 L Phosphorus Magnesium TSH Free T4 10/15/19 10/15/19 10/15/19 07:39 11:28 16:17 Amelia % (Auto) Seg Neutrophils % Seg Neutrophils # POC ABG pCO2 POC ABG pO2 Sodium Potassium Chloride Carbon Dioxide BUN Creatinine Glucose POC Glucose 116 H 122 H 127 H Lactic Acid Calcium Phosphorus Magnesium TSH Free T4 10/15/19 10/16/19 10/16/19 22:10 04:09 07:29 Amelia % (Auto) Seg Neutrophils % Seg Neutrophils # POC ABG pCO2 POC ABG pO2 Sodium Potassium Chloride Carbon Dioxide BUN 2 L Creatinine 0.5 L Glucose 163 H POC Glucose 154 H 154 H Lactic Acid Calcium Phosphorus 1.80 L Magnesium 1.40 L TSH Free T4 10/16/19 10/16/19 10/16/19 11:20 16:06 16:25 Amelia % (Auto) Seg Neutrophils % Seg Neutrophils # POC ABG pCO2 34.8 L POC ABG pO2 76 L Sodium Potassium Chloride Carbon Dioxide BUN Creatinine Glucose POC Glucose 156 H 125 H Lactic Acid Calcium Phosphorus Magnesium TSH Free T4 10/16/19 10/17/19 10/17/19 22:02 05:07 07:28 Amelia % (Auto) Seg Neutrophils % Seg Neutrophils # POC ABG pCO2 POC ABG pO2 Sodium Potassium Chloride Carbon Dioxide 20 L BUN 2 L Creatinine 0.4 L Glucose 128 H POC Glucose 144 H 141 H Lactic Acid Calcium Phosphorus Magnesium TSH Free T4 Allied health notes reviewed: nursing
--- NOTE | 2019-10-17 17:15 | Progress Note ---
Assessment and Plan Assessment and plan: Patient is a 79-year-old woman from assisted living facility with a history of dementia, hypertension, thyroid disorder, diabetes mellitus type 2 and DNR at her assisted living facility who presented to [facility] ED with choking and having trouble breathing. * pChest x-ray no acute findings Acute metabolic encephalopathy supportive care, CT head neg, given dementia- daughter is not interested in MRI, she has refused obtain EEG, neuro consult appreciated, likely metabolic due to dehydration at baseline, she is non verbal, but is able to eat and is fully dependent, currently she only opens eyes occasionally and has not woken up Acute hypoxic Respiratory failure now weaned to NC repeat CXR is again negative, based on her clinical presentation is most likely that the patient aspirated. Discontinue antibiotics Hyperthyroidism tfts show elevated TSH at 50 and low free T4 at 0.4. When patient able to tolerate p.o., her methimazole dose will be reduced sacral excoriations -wound care benadryl for itching Bruxism Ativan as needed CHEN/hypernatremia,dehydration, vasomotor nephropathy treated with IV fluids Hypokalemia Replete IV Dysphagia is chronic and worseing, daughter agreeable to PEG, Gi consulted DVT prophylaxis with Lovenox DNR/DNI PEG today, observe overnight, to make sure tube feeding is ok, d/w daughter Ms. Jane Peraltapelle at bedside Disposition: anticipate d/c back to [facility] tomorrow. History Interval history: Patient was seen and examined. Follow-up on current diagnosis FTT. No overnight events reported to me. Imaging, nursing note, chart, labs and old chart reviewed. Saw Daughter at Nursing station early this morning. Hospitalist Physical - Physical exam Narrative exam: Gen: chronically disable, awake, not orienteated HEENT: NCAT, EOMI, PERRL, OP Clear Neck: supple, no adenopathy, no thyromegaly, no JVD CVS/Heart: RRR, normal S1S2, pulses present bilaterally Chest/Lungs: CTA B, Symmetrical chest expansion, good air entry bilaterally GI/Abdomen: soft, NTND, good bowel sounds, no guarding or rebound /Bladder: no suprapubic tenderness, no CVA or paraspinal tenderness Extermity/Skin: no c/c/e, no obvious rash MSK: contracted ex Neuro: CN 2-12 grossly intact, doesn't follow commands Psych: calm but confused - Constitutional Vitals: Temp Pulse Resp BP Pulse Ox 98.3 F 86 20 121/35 95 10/17/19 15:44 10/17/19 13:49 10/17/19 15:44 10/17/19 15:44 10/17/19 15:44 General appearance: Absent: mild distress Results - Labs CBC & Chem 7: 10/10/19 05:41 10/17/19 05:07 Labs: Laboratory Last Values WBC 10.8 K/mm3 (4.5-11.0) 10/10/19 05:41 RBC 3.84 M/mm3 (3.65-5.03) 10/10/19 05:41 Hgb 11.6 gm/dl (10.1-14.3) 10/10/19 05:41 Hct 36.1 % (30.3-42.9) 10/10/19 05:41 MCV 94 fl (79-97) 10/10/19 05:41 MCH 30 pg (28-32) 10/10/19 05:41 MCHC 32 % (30-34) 10/10/19 05:41 RDW 14.5 % (13.2-15.2) 10/10/19 05:41 Plt Count 361 K/mm3 (140-440) 10/10/19 05:41 Lymph % (Auto) 17.6 % (13.4-35.0) 10/10/19 05:41 [place] % (Auto) 6.9 % (0.0-7.3) 10/10/19 05:41 Eos % (Auto) 0.4 % (0.0-4.3) 10/10/19 05:41 Baso % (Auto) 0.6 % (0.0-1.8) 10/10/19 05:41 Lymph # 1.9 K/mm3 (1.2-5.4) 10/10/19 05:41 [place] # 0.7 K/mm3 (0.0-0.8) 10/10/19 05:41 Eos # 0.0 K/mm3 (0.0-0.4) 10/10/19 05:41 Baso # 0.1 K/mm3 (0.0-0.1) 10/10/19 05:41 Seg Neutrophils % 74.5 % (40.0-70.0) H 10/10/19 05:41 Seg Neutrophils # 8.1 K/mm3 (1.8-7.7) H 10/10/19 05:41 PT 12.8 Sec. (12.2-14.9) 10/17/19 05:07 INR 0.97 (0.87-1.13) 10/17/19 05:07 APTT 25.1 Sec. (24.2-36.6) 10/09/19 10:48 POC ABG pH 7.442 (7.35-7.45) 10/16/19 16:06 POC ABG pCO2 34.8 (35-45) L 10/16/19 16:06 POC ABG pO2 76 (80-105) L 10/16/19 16:06 POC ABG HCO3 23.7 (22-26 mml/L) 10/16/19 16:06 POC ABG Total CO2 25 (23-27mmol/L) 10/16/19 16:06 POC ABG O2 Sat 96 10/16/19 16:06 POC ABG Base Excess 0 ((-2) - (+3)mmol/L) 10/16/19 16:06 FiO2 21 % 10/16/19 16:06 Sodium 138 mmol/L (137-145) 10/17/19 05:07 Potassium 4.1 mmol/L (3.6-5.0) 10/17/19 05:07 Chloride 103.0 mmol/L (98-107) 10/17/19 05:07 Carbon Dioxide 20 mmol/L (22-30) L 10/17/19 05:07 Anion Gap 19 mmol/L 10/17/19 05:07 BUN 2 mg/dL (7-17) L 10/17/19 05:07 Creatinine 0.4 mg/dL (0.7-1.2) L 10/17/19 05:07 Estimated GFR > 60 ml/min 10/17/19 05:07 BUN/Creatinine Ratio 5 % 10/17/19 05:07 Glucose 128 mg/dL (65-100) H 10/17/19 05:07 POC Glucose 190 (70-105) H 10/17/19 16:56 Lactic Acid 1.00 mmol/L (0.7-2.0) 10/12/19 15:17 Calcium 8.8 mg/dL (8.4-10.2) 10/17/19 05:07 Phosphorus 1.80 mg/dL (2.5-4.5) L 10/16/19 04:09 Magnesium 1.40 mg/dL (1.7-2.3) L 10/16/19 04:09 Total Bilirubin 0.60 mg/dL (0.1-1.2) 10/09/19 10:48 AST 18 units/L (5-40) 10/09/19 10:48 ALT 21 units/L (7-56) 10/09/19 10:48 Alkaline Phosphatase 81 units/L (35-129) 10/09/19 10:48 Total Creatine Kinase 91 units/L (30-135) 10/09/19 10:48 Total Protein 8.0 g/dL (6.3-8.2) 10/09/19 10:48 Albumin 4.1 g/dL (3.9-5) 10/09/19 10:48 Albumin/Globulin Ratio 1.1 % 10/09/19 10:48 TSH 50.740 mlU/mL (0.270-4.200) H 10/09/19 10:48 Free T4 0.40 ng/dL (0.76-1.46) L 10/09/19 10:48 Urine Color Yellow (Yellow) 10/09/19 12:00 Urine Turbidity Slightly-cloudy (Clear) 10/09/19 12:00 Urine pH 5.0 (5.0-7.0) 10/09/19 12:00 Ur Specific Gifford 1.017 (1.003-1.030) 10/09/19 12:00 Urine Protein 30 mg/dl mg/dL (Negative) 10/09/19 12:00 Urine Glucose (UA) Neg mg/dL (Negative) 10/09/19 12:00 Urine Ketones Neg mg/dL (Negative) 10/09/19 12:00 Urine Blood Neg (Negative) 10/09/19 12:00 Urine Nitrite Neg (Negative) 10/09/19 12:00 Urine Bilirubin Neg (Negative) 10/09/19 12:00 Urine Urobilinogen < 2.0 mg/dL (<2.0) 10/09/19 12:00 Ur Leukocyte Esterase Neg (Negative) 10/09/19 12:00 Urine WBC (Auto) 1.0 /HPF (0.0-6.0) 10/09/19 12:00 Urine RBC (Auto) 2.0 /HPF (0.0-6.0) 10/09/19 12:00 U Epithel Cells (Auto) 4.0 /HPF (0-13.0) 10/09/19 12:00 Urine Mucus Few /HPF 10/09/19 12:00 Active Medications - Current Medications Current Medications: Generic Name Dose Route Start Last Admin Trade Name Freq PRN Reason Stop Dose Admin Albuterol 2.5 mg 10/09/19 12:55 Proventil IH Q3HRT PRN Shortness Of Breath Aspirin 81 mg 10/10/19 10:00 10/17/19 09:44 Halfprin Ec PO Not Given DAILY LEONARDO Calcium Carbonate/Glycine 1,250 mg 10/10/19 10:00 10/17/19 09:45 Oscal PO Not Given QDAY [facility] Dextrose 50 ml 10/09/19 14:07 D50w (25gm) Syringe IV Q30MIN PRN Hypoglycemia Protocol Donepezil HCl 10 mg 10/10/19 10:00 10/17/19 09:42 Aricept PO Not Given DAILY [facility] Enoxaparin Sodium 40 mg 10/15/19 22:00 10/16/19 22:49 Enoxaparin SUB-Q Not Given QDAY@2200 LEONARDO Famotidine 20 mg 10/12/19 14:00 10/17/19 09:46 Pepcid PO Not Given QDAY LEONARDO Potassium Chloride 20 meq/ 1,010 mls @ 100 mls/hr 10/15/19 13:00 10/16/19 16 :43 Dextrose IV 100 mls/hr DIRECT LEONARDO Administration Sodium Chloride 1,000 mls @ 50 mls/hr 10/17/19 12:00 10/17/19 12:20 Nacl 0.9% 1000 Ml IV 10/17/19 21:00 50 mls/hr DIRECT LEONARDO Administration Insulin Human Lispro 0 unit 10/09/19 16:30 10/17/19 11:53 Humalog SUB-Q Not Given ACHS LEONARDO Protocol Loratadine 10 mg 10/10/19 10:00 10/17/19 09:44 Claritin PO Not Given DAILY LEONARDO Lorazepam 0.25 mg 10/11/19 14:29 Ativan IV Q4H PRN agitation/grinding Memantine 5 mg 10/09/19 22:00 10/17/19 09:42 Memantine PO Not Given BID LEONARDO Methimazole 5 mg 10/10/19 22:00 10/17/19 07:33 Tapazole PO Not Given Q8HR LEONARDO Pravastatin Sodium 80 mg 10/10/19 10:00 10/17/19 09:45 Pravachol PO Not Given QDAY LEONARDO Sodium Chloride 10 ml 10/09/19 22:00 10/17/19 09:39 Sodium Chloride Flush Syringe 10 Ml IV 10 ml BID LEONARDO Administration Sodium Chloride 10 ml 10/09/19 12:55 Sodium Chloride Flush Syringe 10 Ml IV PRN PRN LINE FLUSH Nutrition/Malnutrition Assess - Dietary Evaluation Nutrition/Malnutrition Findings: Nutrition Notes Start: 10/10/19 10:31 Freq: Status: Active Protocol: Document 10/17/19 12:16 KS (Rec: 10/17/19 12:16 KS [id number]) Co-Sign 10/17/19 12:16 LP Nutrition Notes Initial or Follow up Brief Note Current Diagnosis Acute Kidney Injury,Decubitus( Pressure Ulcer),Diabetes, Hypertension,Respiratory Failure Other Pertinent Diagnosis Sacral wound, dysphagia, dementia, encephalopathy, debility, pneu Current Diet NPO Subjective/Other Information Pt awaiting PEG placement. Nutrition Intervention Follow-Up By: 10/18/19
[2019-10-17] MEDS: DEXTROSE 5% IN WATER 1,000 ML with POTASSIUM CHLORIDE 20 MEQ IV SCH (20:29)
[2019-10-17] MEDS: ENOXAPARIN 40 MG/0.4 ML INJ SUB-Q SCH (21:53)
[2019-10-18] MEDS: methIMAzole 5 MG TAB PO SCH ×3 (05:48→21:46)
[2019-10-18 06:08] LABS: BUN/Creatinine Ratio 8; Blood Urea Nitrogen 4 mg/dL (7-17); Calcium 8.7 mg/dL (8.4-10.2); Hemolysis Index 4
[2019-10-18] MEDS: INSULIN LISPRO 100 UNIT/ML SUB-Q SCH ×3 (07:30→16:30)
[2019-10-18] MEDS: LORATADINE (NF) 10 MG TAB PO SCH (10:33)
[2019-10-18] MEDS: ASPIRIN EC 81 MG TAB PO SCH (10:33)
[2019-10-18] MEDS: FAMOTIDINE 20 MG TAB PO SCH (10:33)
[2019-10-18] MEDS: DONEPEZIL 10 MG TAB PO SCH (10:33)
[2019-10-18] MEDS: PRAVASTATIN 80 MG TAB PO SCH (10:33)
[2019-10-18] MEDS: DEXTROSE 5% IN WATER 1,000 ML with POTASSIUM CHLORIDE 20 MEQ IV SCH (10:33)
[2019-10-18] MEDS: CALCIUM CARBONATE 1250 MG TAB PO SCH (10:34)
[2019-10-18] MEDS: MEMANTINE 5 MG TAB PO SCH ×2 (10:34→21:46)
--- NOTE | 2019-10-18 11:17 | Gastroenterology Progress Note ---
Assessment and Plan 1. PEG placement 2.Aspiration -s/p EGD/PEG yesterday -PEG site this am w/o s/s of infection or bleeding -bumper loosened to prevent skin breakdown -split gauze dressing PRN -daily PEG care -TFs per dietary recommendations -continue supportive care -no further recommendations per GI standpoint -will sign off, please call if needed Subjective Date of service: 10/18/19 Principal diagnosis: PEG placement Interval history: No acute distress. PEG site this am w/o redness, swelling, drainage, odor, or bleeding. Abdomen benign upon exam. Objective - Constitutional Vitals: Temp Pulse Resp BP Pulse Ox 99.5 F 113 H 18 153/81 95 10/18/19 07:46 10/18/19 07:46 10/18/19 07:46 10/18/19 07:46 10/18/19 07:46 General appearance: no acute distress, other (nonverbal) - Respiratory Respiratory effort: normal - Cardiovascular Rhythm: other (tachycardia) - Gastrointestinal General gastrointestinal: Present: soft, non-distended, normal bowel sounds, other (+PEG) - Labs CBC & Chem 7: 10/10/19 05:41 10/18/19 05:01 Labs: Laboratory Results - last 24 hr 10/17/19 10/17/19 10/18/19 16:56 20:39 05:01 Sodium 138 Potassium 4.0 Chloride 104.8 Carbon Dioxide 23 Anion Gap 14 BUN 4 L Creatinine 0.5 L Estimated GFR > 60 BUN/Creatinine Ratio 8 Glucose 132 H POC Glucose 190 H 100 Calcium 8.7 10/18/19 07:53 Sodium Potassium Chloride Carbon Dioxide Anion Gap BUN Creatinine Estimated GFR BUN/Creatinine Ratio Glucose POC Glucose 148 H Calcium
--- NOTE | 2019-10-18 11:27 | Progress Note ---
Assessment and Plan Patient is a 79-year-old woman from assisted living facility with a history of dementia, hypertension, thyroid disorder, diabetes mellitus type 2 and DNR at her assisted living facility who presented to [facility] ED with choking and having trouble breathing. Acute hypoxemic respiratory failures/p supplemental oxygen. Systemic inflammatory response syndrome/early sepsis. Acute possibly on chronic encephalopathy. Aspiration event without overt pneumonia. Hypernatremia. Acute kidney injury. Hyperglycemia. History of diabetes. Hyperthyroidism Alzheimer's dementia. Oropharyngeal dysphagia. - continue with aspiration precautions -continue to wean supplemental oxygen as needed for O2 sats > 90% - continue bronchodilators with pulmonary hygiene per RT -monitor off antibiotics, once she has completed empiric antibiotic therapy - continue free water for hypernatremia -accucheck and glycemic control, avoid hypoglycemia - continue PT/OT as tolerated - continue mobility protocols for pressure ulcer prevention - continue VTE prophylaxis - Flu & Pneumovax addressed per protocol - continue other care per attending / other sap consultant's -discharge planning per primary service Subjective Date of service: 10/18/19 Principal diagnosis: PEG placement Interval history: Patient is seen today for: Ac. hypoxemic respiratory failure; SIRS /early sepsis; Acute possibly on chronic encephalopathy; Aspiration event without overt pneumonia; Hypernatremia; Acute kidney injury. Seen and examined at bedside; 24-hour events reviewed; nursing and respiratory care staff consulted; no adverse overnight events reported to me; resting peacefully in bed; remains non-verbal, no fevers, no vomiting Objective Vital Signs - 12hr 10/18/19 10/18/19 02:28 07:46 Temperature 98.5 F 99.5 F Pulse Rate 77 113 H Respiratory 18 18 Rate Blood Pressure 144/76 153/81 O2 Sat by Pulse 100 95 Oximetry Constitutional: no acute distress, asleep Eyes: non-icteric ENT: oropharynx moist Neck: supple, no lymphadenopathy, no JVD Effort: normal Ascultation: Bilateral: clear, diminished breath sounds Percussion: Bilateral: not dull Cardiovascular: regular rate and rhythm, other (S1,S2) Gastrointestinal: normoactive bowel sounds, soft, non-tender, non-distended Integumentary: normal Extremities: no cyanosis, no edema, pulses normal, no ischemia or petechiae Neurologic: pupils equal and round, unable to assess, other (awake, alert) Psychiatric: other (encephalopathic) CBC and BMP: 11/27/19 05:41 10/18/19 05:01 ABG, PT/INR, D-dimer: ABG POC ABG pH 7.442 (7.35-7.45) 10/16/19 16:06 POC ABG pCO2 34.8 (35-45) L 10/16/19 16:06 POC ABG pO2 76 (80-105) L 10/16/19 16:06 POC ABG HCO3 23.7 (22-26 mml/L) 10/16/19 16:06 POC ABG Total CO2 25 (23-27mmol/L) 10/16/19 16:06 POC ABG O2 Sat 96 10/16/19 16:06 PT/INR, D-dimer PT 12.8 Sec. (12.2-14.9) 10/17/19 05:07 INR 0.97 (0.87-1.13) 10/17/19 05:07 Abnormal lab findings: Abnormal Labs 10/09/19 10/09/19 10/09/19 10:48 10:48 10:48 [place] % (Auto) Seg Neutrophils % Seg Neutrophils # POC ABG pCO2 POC ABG pO2 Sodium 149 H Potassium Chloride Carbon Dioxide 20 L BUN 45 H Creatinine 2.0 H Glucose 150 H POC Glucose Lactic Acid 2.20 H* Calcium Phosphorus Magnesium TSH 50.740 H Free T4 10/09/19 10/09/19 10/09/19 10:48 10:48 13:18 [place] % (Auto) 7.6 H Seg Neutrophils % Seg Neutrophils # POC ABG pCO2 POC ABG pO2 Sodium Potassium Chloride Carbon Dioxide BUN Creatinine Glucose POC Glucose Lactic Acid 2.60 H* Calcium Phosphorus Magnesium TSH Free T4 0.40 L 10/09/19 10/09/19 10/09/19 16:01 17:21 23:06 [place] % (Auto) Seg Neutrophils % Seg Neutrophils # POC ABG pCO2 POC ABG pO2 Sodium Potassium Chloride Carbon Dioxide BUN Creatinine Glucose POC Glucose 124 H 130 H Lactic Acid 2.10 H* Calcium Phosphorus Magnesium TSH Free T4 10/10/19 10/10/19 10/10/19 05:41 05:41 15:59 [place] % (Auto) Seg Neutrophils % 74.5 H Seg Neutrophils # 8.1 H POC ABG pCO2 POC ABG pO2 Sodium 152 H Potassium Chloride 109.3 H Carbon Dioxide BUN 35 H Creatinine 1.3 H Glucose 125 H POC Glucose 112 H Lactic Acid Calcium Phosphorus Magnesium TSH Free T4 10/10/19 10/11/19 10/11/19 18:37 04:50 09:16 [place] % (Auto) Seg Neutrophils % Seg Neutrophils # POC ABG pCO2 POC ABG pO2 Sodium Potassium Chloride Carbon Dioxide BUN Creatinine Glucose POC Glucose 108 H 120 H 122 H Lactic Acid Calcium Phosphorus Magnesium TSH Free T4 10/11/19 10/11/19 10/11/19 10:20 12:02 16:36 [place] % (Auto) Seg Neutrophils % Seg Neutrophils # POC ABG pCO2 POC ABG pO2 Sodium 148 H Potassium 3.5 L Chloride 107.4 H Carbon Dioxide 21 L BUN 25 H Creatinine Glucose 113 H POC Glucose 117 H 110 H Lactic Acid Calcium Phosphorus Magnesium TSH Free T4 10/12/19 10/12/19 10/12/19 04:57 08:12 12:00 [place] % (Auto) Seg Neutrophils % Seg Neutrophils # POC ABG pCO2 POC ABG pO2 Sodium 152 H Potassium 3.3 L Chloride 112.5 H Carbon Dioxide BUN 24 H Creatinine Glucose 131 H POC Glucose 120 H 113 H Lactic Acid Calcium Phosphorus Magnesium TSH Free T4 10/12/19 10/12/19 10/13/19 16:21 21:12 04:45 [place] % (Auto) Seg Neutrophils % Seg Neutrophils # POC ABG pCO2 POC ABG pO2 Sodium 149 H Potassium Chloride 113.8 H Carbon Dioxide BUN Creatinine Glucose 207 H POC Glucose 137 H 172 H Lactic Acid Calcium Phosphorus Magnesium TSH Free T4 10/13/19 10/13/19 10/13/19 07:21 11:45 16:20 [place] % (Auto) Seg Neutrophils % Seg Neutrophils # POC ABG pCO2 POC ABG pO2 Sodium Potassium Chloride Carbon Dioxide BUN Creatinine Glucose POC Glucose 187 H 161 H 132 H Lactic Acid Calcium Phosphorus Magnesium TSH Free T4 10/13/19 10/14/19 10/14/19 22:29 04:10 07:35 [place] % (Auto) Seg Neutrophils % Seg Neutrophils # POC ABG pCO2 POC ABG pO2 Sodium Potassium 3.2 L Chloride Carbon Dioxide BUN Creatinine 0.6 L Glucose 167 H POC Glucose 120 H 166 H Lactic Acid Calcium Phosphorus Magnesium TSH Free T4 10/14/19 10/14/19 10/15/19 12:05 21:44 05:30 [place] % (Auto) Seg Neutrophils % Seg Neutrophils # POC ABG pCO2 POC ABG pO2 Sodium Potassium 3.3 L Chloride Carbon Dioxide BUN 5 L Creatinine 0.4 L Glucose 143 H POC Glucose 125 H 123 H Lactic Acid Calcium 8.3 L Phosphorus Magnesium TSH Free T4 10/15/19 10/15/19 10/15/19 07:39 11:28 16:17 [place] % (Auto) Seg Neutrophils % Seg Neutrophils # POC ABG pCO2 POC ABG pO2 Sodium Potassium Chloride Carbon Dioxide BUN Creatinine Glucose POC Glucose 116 H 122 H 127 H Lactic Acid Calcium Phosphorus Magnesium TSH Free T4 10/15/19 10/16/19 10/16/19 22:10 04:09 07:29 [place] % (Auto) Seg Neutrophils % Seg Neutrophils # POC ABG pCO2 POC ABG pO2 Sodium Potassium Chloride Carbon Dioxide BUN 2 L Creatinine 0.5 L Glucose 163 H POC Glucose 154 H 154 H Lactic Acid Calcium Phosphorus 1.80 L Magnesium 1.40 L TSH Free T4 10/16/19 10/16/19 10/16/19 11:20 16:06 16:25 [place] % (Auto) Seg Neutrophils % Seg Neutrophils # POC ABG pCO2 34.8 L POC ABG pO2 76 L Sodium Potassium Chloride Carbon Dioxide BUN Creatinine Glucose POC Glucose 156 H 125 H Lactic Acid Calcium Phosphorus Magnesium TSH Free T4 10/16/19 10/17/19 10/17/19 22:02 05:07 07:28 [place] % (Auto) Seg Neutrophils % Seg Neutrophils # POC ABG pCO2 POC ABG pO2 Sodium Potassium Chloride Carbon Dioxide 20 L BUN 2 L Creatinine 0.4 L Glucose 128 H POC Glucose 144 H 141 H Lactic Acid Calcium Phosphorus Magnesium TSH Free T4 10/17/19 10/18/19 10/18/19 16:56 05:01 07:53 [place] % (Auto) Seg Neutrophils % Seg Neutrophils # POC ABG pCO2 POC ABG pO2 Sodium Potassium Chloride Carbon Dioxide BUN 4 L Creatinine 0.5 L Glucose 132 H POC Glucose 190 H 148 H Lactic Acid Calcium Phosphorus Magnesium TSH Free T4 Chest x-ray: image reviewed Allied health notes reviewed: nursing
--- NOTE | 2019-10-18 15:41 | Progress Note ---
Assessment and Plan Assessment and plan: Patient is a 79-year-old woman from assisted living facility with a history of dementia, hypertension, thyroid disorder, diabetes mellitus type 2 and DNR at her assisted living facility who presented to [facility] ED with choking and having trouble breathing. * pChest x-ray no acute findings Acute metabolic encephalopathy supportive care, CT head neg, given dementia- daughter is not interested in MRI, she has refused obtain EEG, neuro consult appreciated, likely metabolic due to dehydration at baseline, she is non verbal, but is able to eat and is fully dependent, currently she only opens eyes occasionally and has not woken up Acute hypoxic Respiratory failure now weaned to NC repeat CXR is again negative, based on her clinical presentation is most likely that the patient aspirated. Discontinue antibiotics Hyperthyroidism TFT show elevated TSH at 50 and low free T4 at 0.4. When patient able to tolerate p.o, her methimazole dose will be reduced sacral excoriations -wound care benadryl for itching Bruxism Ativan as needed CHEN/hypernatremia,dehydration, vasomotor nephropathy treated with IV fluids Hypokalemia Replete IV Dysphagia is chronic and worseing, daughter agreeable to PEG, Gi consulted DVT prophylaxis with Lovenox DNR/DNI PEG today, observe overnight, to make sure tube feeding is ok, d/w daughter Ms. Lara Anel at bedside Disposition: continue inpatient care, unable to go back to [facility] assisted living with PEG tube so awaiting new placement/insurance authorization. History Interval history: Patient was seen and examined. Follow-up on current diagnosis FTT. No overnight events reported to me. Imaging, nursing note, chart, labs and old chart reviewed. Saw Daughter at Nursing station early this morning. Hospitalist Physical - Physical exam Narrative exam: Gen: chronically disable, awake, not orienteated HEENT: NCAT, EOMI, PERRL, OP Clear Neck: supple, no adenopathy, no thyromegaly, no JVD CVS/Heart: RRR, normal S1S2, pulses present bilaterally Chest/Lungs: CTA B, Symmetrical chest expansion, good air entry bilaterally GI/Abdomen: soft, NTND, good bowel sounds, no guarding or rebound /Bladder: no suprapubic tenderness, no CVA or paraspinal tenderness Extermity/Skin: no c/c/e, no obvious rash MSK: contracted ex Neuro: CN 2-12 grossly intact, doesn't follow commands Psych: calm but confused - Constitutional Vitals: Temp Pulse Resp BP Pulse Ox 99.5 F 113 H 18 153/81 95 10/18/19 07:46 10/18/19 10:00 10/18/19 07:46 10/18/19 07:46 10/18/19 07:46 General appearance: Absent: mild distress Results - Labs CBC & Chem 7: 10/10/19 05:41 10/18/19 05:01 Labs: Laboratory Last Values WBC 10.8 K/mm3 (4.5-11.0) 10/10/19 05:41 RBC 3.84 M/mm3 (3.65-5.03) 10/10/19 05:41 Hgb 11.6 gm/dl (10.1-14.3) 10/10/19 05:41 Hct 36.1 % (30.3-42.9) 10/10/19 05:41 MCV 94 fl (79-97) 10/10/19 05:41 MCH 30 pg (28-32) 10/10/19 05:41 MCHC 32 % (30-34) 10/10/19 05:41 RDW 14.5 % (13.2-15.2) 10/10/19 05:41 Plt Count 361 K/mm3 (140-440) 10/10/19 05:41 Lymph % (Auto) 17.6 % (13.4-35.0) 10/10/19 05:41 [place] % (Auto) 6.9 % (0.0-7.3) 10/10/19 05:41 Eos % (Auto) 0.4 % (0.0-4.3) 10/10/19 05:41 Baso % (Auto) 0.6 % (0.0-1.8) 10/10/19 05:41 Lymph # 1.9 K/mm3 (1.2-5.4) 10/10/19 05:41 [place] # 0.7 K/mm3 (0.0-0.8) 10/10/19 05:41 Eos # 0.0 K/mm3 (0.0-0.4) 10/10/19 05:41 Baso # 0.1 K/mm3 (0.0-0.1) 10/10/19 05:41 Seg Neutrophils % 74.5 % (40.0-70.0) H 10/10/19 05:41 Seg Neutrophils # 8.1 K/mm3 (1.8-7.7) H 10/10/19 05:41 PT 12.8 Sec. (12.2-14.9) 10/17/19 05:07 INR 0.97 (0.87-1.13) 10/17/19 05:07 APTT 25.1 Sec. (24.2-36.6) 10/09/19 10:48 POC ABG pH 7.442 (7.35-7.45) 10/16/19 16:06 POC ABG pCO2 34.8 (35-45) L 10/16/19 16:06 POC ABG pO2 76 (80-105) L 10/16/19 16:06 POC ABG HCO3 23.7 (22-26 mml/L) 10/16/19 16:06 POC ABG Total CO2 25 (23-27mmol/L) 10/16/19 16:06 POC ABG O2 Sat 96 10/16/19 16:06 POC ABG Base Excess 0 ((-2) - (+3)mmol/L) 10/16/19 16:06 FiO2 21 % 10/16/19 16:06 Sodium 138 mmol/L (137-145) 10/18/19 05:01 Potassium 4.0 mmol/L (3.6-5.0) 10/18/19 05:01 Chloride 104.8 mmol/L (98-107) 10/18/19 05:01 Carbon Dioxide 23 mmol/L (22-30) 10/18/19 05:01 Anion Gap 14 mmol/L 10/18/19 05:01 BUN 4 mg/dL (7-17) L 10/18/19 05:01 Creatinine 0.5 mg/dL (0.7-1.2) L 10/18/19 05:01 Estimated GFR > 60 ml/min 10/18/19 05:01 BUN/Creatinine Ratio 8 % 10/18/19 05:01 Glucose 132 mg/dL (65-100) H 10/18/19 05:01 POC Glucose 143 (70-105) H 10/18/19 11:42 Lactic Acid 1.00 mmol/L (0.7-2.0) 10/12/19 15:17 Calcium 8.7 mg/dL (8.4-10.2) 10/18/19 05:01 Phosphorus 1.80 mg/dL (2.5-4.5) L 10/16/19 04:09 Magnesium 1.40 mg/dL (1.7-2.3) L 10/16/19 04:09 Total Bilirubin 0.60 mg/dL (0.1-1.2) 10/09/19 10:48 AST 18 units/L (5-40) 10/09/19 10:48 ALT 21 units/L (7-56) 10/09/19 10:48 Alkaline Phosphatase 81 units/L (35-129) 10/09/19 10:48 Total Creatine Kinase 91 units/L (30-135) 10/09/19 10:48 Total Protein 8.0 g/dL (6.3-8.2) 10/09/19 10:48 Albumin 4.1 g/dL (3.9-5) 10/09/19 10:48 Albumin/Globulin Ratio 1.1 % 10/09/19 10:48 TSH 50.740 mlU/mL (0.270-4.200) H 10/09/19 10:48 Free T4 0.40 ng/dL (0.76-1.46) L 10/09/19 10:48 Urine Color Yellow (Yellow) 10/09/19 12:00 Urine Turbidity Slightly-cloudy (Clear) 10/09/19 12:00 Urine pH 5.0 (5.0-7.0) 10/09/19 12:00 Ur Specific [place] 1.017 (1.003-1.030) 10/09/19 12:00 Urine Protein 30 mg/dl mg/dL (Negative) 10/09/19 12:00 Urine Glucose (UA) Neg mg/dL (Negative) 10/09/19 12:00 Urine Ketones Neg mg/dL (Negative) 10/09/19 12:00 Urine Blood Neg (Negative) 10/09/19 12:00 Urine Nitrite Neg (Negative) 10/09/19 12:00 Urine Bilirubin Neg (Negative) 10/09/19 12:00 Urine Urobilinogen < 2.0 mg/dL (<2.0) 10/09/19 12:00 Ur Leukocyte Esterase Neg (Negative) 10/09/19 12:00 Urine WBC (Auto) 1.0 /HPF (0.0-6.0) 10/09/19 12:00 Urine RBC (Auto) 2.0 /HPF (0.0-6.0) 10/09/19 12:00 U Epithel Cells (Auto) 4.0 /HPF (0-13.0) 10/09/19 12:00 Urine Mucus Few /HPF 10/09/19 12:00 Active Medications - Current Medications Current Medications: Generic Name Dose Route Start Last Admin Trade Name Freq PRN Reason Stop Dose Admin Albuterol 2.5 mg 10/09/19 12:55 Proventil IH Q3HRT PRN Shortness Of Breath Aspirin 81 mg 10/10/19 10:00 10/18/19 10:33 Halfprin Ec PO 81 mg DAILY LEONARDO Administration Calcium Carbonate/Glycine 1,250 mg 10/10/19 10:00 10/18/19 10:34 Oscal PO 1,250 mg QDAY LEONARDO Administration Dextrose 50 ml 10/09/19 14:07 D50w (25gm) Syringe IV Q30MIN PRN Hypoglycemia Protocol Donepezil HCl 10 mg 10/10/19 10:00 10/18/19 10:33 Aricept PO 10 mg DAILY LEONARDO Administration Enoxaparin Sodium 40 mg 10/15/19 22:00 10/17/19 21:53 Enoxaparin SUB-Q 40 mg QDAY@2200 LEONARDO Administration Famotidine 20 mg 10/12/19 14:00 10/18/19 10:33 Pepcid PO 20 mg QDAY LEONARDO Administration Potassium Chloride 20 meq/ 1,010 mls @ 100 mls/hr 10/15/19 13:00 10/18/19 10:33 Dextrose IV 100 mls/hr DIRECT LEONARDO Administration Insulin Human Lispro 0 unit 10/09/19 16:30 10/18/19 11:30 Humalog SUB-Q Not Given ACHS LEONARDO Protocol Loratadine 10 mg 10/10/19 10:00 10/18/19 10:33 Claritin PO 10 mg DAILY LEONARDO Administration Lorazepam 0.25 mg 10/11/19 14:29 Ativan IV Q4H PRN agitation/grinding Memantine 5 mg 10/09/19 22:00 10/18/19 10:34 Memantine PO 5 mg BID LEONARDO Administration Methimazole 5 mg 10/10/19 22:00 10/18/19 05:48 Tapazole PO Not Given Q8HR LEONARDO Pravastatin Sodium 80 mg 10/10/19 10:00 10/18/19 10:33 Pravachol PO 80 mg QDAY LEONARDO Administration Sodium Chloride 10 ml 10/09/19 22:00 10/18/19 10:35 Sodium Chloride Flush Syringe 10 Ml IV 10 ml BID LEONARDO Administration Sodium Chloride 10 ml 10/09/19 12:55 Sodium Chloride Flush Syringe 10 Ml IV PRN PRN LINE FLUSH Nutrition/Malnutrition Assess - Dietary Evaluation Nutrition/Malnutrition Findings: Nutrition Notes Start: 10/10/19 10:31 Freq: Status: Active Protocol: Document 10/18/19 08:54 [place] (Rec: 10/18/19 09:22 [place] [id number]) Co-Sign 10/18/19 08:54 Nutrition Notes Initial or Follow up Assessment Current Diagnosis Decubitus(Pressure Ulcer), Diabetes,Hypertension, Respiratory Failure Other Pertinent Diagnosis Sacral wound, dysphagia, dementia, encephalopathy, debility, pneu Current Diet NPO Labs/Tests BUN 4 CR 0.5 Glu 132 POC Glu 148 Pertinent Medications Reviewed Height 4 ft 6 in Weight 60.2 kg [place] Body Weight (kg) 31.81 BMI 32.0 Subjective/Other Information MD consult for TF start. Pt had PEG placement yesterday. Burn Absent Trauma Absent Difficulty In Swallowing,Chewing #2 Nutrition Diagnosis Inadequate oral intake Diagnosis Progress(for reassessment Continues documentation) #1 Nutrition Diagnosis Increased nutrient needs ( specify in comment below) Diagnosis Progress(for reassessment Continues documentation) Is patient on ventilator? No Is Patient Ambulatory and/or Out of Bed No REE-([facility]-confined to bed) 1096.227 Calculation Used for Recommendations [facility] Additional Notes Protein: 58-69g (1.25-1.5g/kg) AdjBw 46kg pt with CHEN and wound Fluid: 1 ml/kcal or per MD Nutrition Intervention Change Diet Order: TF Nutrition Support: Glucerna 1.2 at 40 ml/hr Flush 65 ml q4hr Kcal 1,152 Protein (gm) 57 Fluid (mL) 773 Goal #1 TF initiate Goal #2 Tolerate TF Anticipated Discharge Needs: Glucerna 1.2 Follow-Up By: 10/19/19 Additional Comments F/U for TF start and tolerance
[2019-10-18] MEDS: ENOXAPARIN 40 MG/0.4 ML INJ SUB-Q SCH (21:46)
[2019-10-19] MEDS: INSULIN LISPRO 100 UNIT/ML SUB-Q SCH ×5 (00:26→18:50)
[2019-10-19] MEDS: DEXTROSE 5% IN WATER 1,000 ML with POTASSIUM CHLORIDE 20 MEQ IV SCH (02:06)
[2019-10-19] MEDS: methIMAzole 5 MG TAB PO SCH ×3 (05:38→21:46)
[2019-10-19] MEDS: PRAVASTATIN 80 MG TAB PO SCH (09:38)
[2019-10-19] MEDS: CALCIUM CARBONATE 1250 MG TAB PO SCH (09:38)
[2019-10-19] MEDS: FAMOTIDINE 20 MG TAB PO SCH (09:39)
[2019-10-19] MEDS: LORATADINE (NF) 10 MG TAB PO SCH (09:39)
[2019-10-19] MEDS: MEMANTINE 5 MG TAB PO SCH ×2 (09:39→21:46)
[2019-10-19] MEDS: DONEPEZIL 10 MG TAB PO SCH (09:39)
[2019-10-19] MEDS: ASPIRIN EC 81 MG TAB PO SCH (09:39)
--- NOTE | 2019-10-19 11:40 | Progress Note ---
Assessment and Plan Patient is a 79-year-old woman from assisted living facility with a history of dementia, hypertension, thyroid disorder, diabetes mellitus type 2 and DNR at her assisted living facility who presented to [facility] ED with choking and having trouble breathing. Acute hypoxemic respiratory failures/p supplemental oxygen. Systemic inflammatory response syndrome/early sepsis. Acute possibly on chronic encephalopathy. Aspiration event without overt pneumonia. Hypernatremia. Acute kidney injury. Hyperglycemia. History of diabetes. Hyperthyroidism Alzheimer's dementia. Oropharyngeal dysphagia. - continue with aspiration precautions -continue to wean supplemental oxygen as needed for O2 sats > 90% - continue bronchodilators with pulmonary hygiene per RT -monitor off antibiotics, once she has completed empiric antibiotic therapy - continue free water for hypernatremia -accucheck and glycemic control, avoid hypoglycemia - continue PT/OT as tolerated - continue mobility protocols for pressure ulcer prevention - continue VTE prophylaxis - Flu & Pneumovax addressed per protocol - continue other care per attending / other consultant teacher's -discharge planning per primary service Subjective Date of service: 10/19/19 Principal diagnosis: PEG placement Interval history: Patient is seen today for: Ac. hypoxemic respiratory failure; SIRS /early sepsis; Acute possibly on chronic encephalopathy; Aspiration event without overt pneumonia; Hypernatremia; Acute kidney injury. Seen and examined at bedside; 24-hour events reviewed; nursing and respiratory care staff consulted; no adverse overnight events reported to me; resting peacefully in bed; Objective Vital Signs - 12hr 10/19/19 10/19/19 10/19/19 00:38 02:00 07:28 Temperature 98.5 F 99.7 F H Pulse Rate 86 84 95 H Pulse Rate [ From Monitor] Respiratory 18 19 Rate Blood Pressure 144/81 Blood Pressure 132/68 [left arm] O2 Sat by Pulse 95 98 Oximetry 10/19/19 10/19/19 07:40 10:00 Temperature Pulse Rate 98 H Pulse Rate [ 94 H From Monitor] Respiratory 19 Rate Blood Pressure Blood Pressure [left arm] O2 Sat by Pulse 99 98 Oximetry Constitutional: no acute distress, other (awake, spontaneous eye opening) Eyes: non-icteric ENT: oropharynx moist Neck: supple, no lymphadenopathy, no JVD Effort: normal Ascultation: Bilateral: clear, diminished breath sounds Percussion: Bilateral: not dull Cardiovascular: regular rate and rhythm, other (S1,S2) Gastrointestinal: normoactive bowel sounds, soft, non-tender, non-distended Integumentary: normal Extremities: no cyanosis, no edema, pulses normal, no ischemia or petechiae Neurologic: pupils equal and round, unable to assess, other (spontaneous eye opening) Psychiatric: other (encephalopathic) CBC and BMP: 10/10/19 05:41 10/18/19 05:01 ABG, PT/INR, D-dimer: ABG POC ABG pH 7.442 (7.35-7.45) 10/16/19 16:06 POC ABG pCO2 34.8 (35-45) L 10/16/19 16:06 POC ABG pO2 76 (80-105) L 10/16/19 16:06 POC ABG HCO3 23.7 (22-26 mml/L) 10/16/19 16:06 POC ABG Total CO2 25 (23-27mmol/L) 10/16/19 16:06 POC ABG O2 Sat 96 10/16/19 16:06 PT/INR, D-dimer PT 12.8 Sec. (12.2-14.9) 10/17/19 05:07 INR 0.97 (0.87-1.13) 10/17/19 05:07 Abnormal lab findings: Abnormal Labs 10/09/19 10/09/19 10/09/19 10:48 10:48 10:48 [place] % (Auto) Seg Neutrophils % Seg Neutrophils # POC ABG pCO2 POC ABG pO2 Sodium 149 H Potassium Chloride Carbon Dioxide 20 L BUN 45 H Creatinine 2.0 H Glucose 150 H POC Glucose Lactic Acid 2.20 H* Calcium Phosphorus Magnesium TSH 50.740 H Free T4 10/09/19 10/09/19 10/09/19 10:48 10:48 13:18 [place] % (Auto) 7.6 H Seg Neutrophils % Seg Neutrophils # POC ABG pCO2 POC ABG pO2 Sodium Potassium Chloride Carbon Dioxide BUN Creatinine Glucose POC Glucose Lactic Acid 2.60 H* Calcium Phosphorus Magnesium TSH Free T4 0.40 L 10/09/19 10/09/19 10/09/19 16:01 17:21 23:06 [place] % (Auto) Seg Neutrophils % Seg Neutrophils # POC ABG pCO2 POC ABG pO2 Sodium Potassium Chloride Carbon Dioxide BUN Creatinine Glucose POC Glucose 124 H 130 H Lactic Acid 2.10 H* Calcium Phosphorus Magnesium TSH Free T4 10/10/19 10/10/19 10/10/19 05:41 05:41 15:59 [place] % (Auto) Seg Neutrophils % 74.5 H Seg Neutrophils # 8.1 H POC ABG pCO2 POC ABG pO2 Sodium 152 H Potassium Chloride 109.3 H Carbon Dioxide BUN 35 H Creatinine 1.3 H Glucose 125 H POC Glucose 112 H Lactic Acid Calcium Phosphorus Magnesium TSH Free T4 10/10/19 10/11/19 10/11/19 18:37 04:50 09:16 [place] % (Auto) Seg Neutrophils % Seg Neutrophils # POC ABG pCO2 POC ABG pO2 Sodium Potassium Chloride Carbon Dioxide BUN Creatinine Glucose POC Glucose 108 H 120 H 122 H Lactic Acid Calcium Phosphorus Magnesium TSH Free T4 10/11/19 10/11/19 10/11/19 10:20 12:02 16:36 [place] % (Auto) Seg Neutrophils % Seg Neutrophils # POC ABG pCO2 POC ABG pO2 Sodium 148 H Potassium 3.5 L Chloride 107.4 H Carbon Dioxide 21 L BUN 25 H Creatinine Glucose 113 H POC Glucose 117 H 110 H Lactic Acid Calcium Phosphorus Magnesium TSH Free T4 10/12/19 10/12/19 10/12/19 04:57 08:12 12:00 [place] % (Auto) Seg Neutrophils % Seg Neutrophils # POC ABG pCO2 POC ABG pO2 Sodium 152 H Potassium 3.3 L Chloride 112.5 H Carbon Dioxide BUN 24 H Creatinine Glucose 131 H POC Glucose 120 H 113 H Lactic Acid Calcium Phosphorus Magnesium TSH Free T4 10/12/19 10/12/19 10/13/19 16:21 21:12 04:45 [place] % (Auto) Seg Neutrophils % Seg Neutrophils # POC ABG pCO2 POC ABG pO2 Sodium 149 H Potassium Chloride 113.8 H Carbon Dioxide BUN Creatinine Glucose 207 H POC Glucose 137 H 172 H Lactic Acid Calcium Phosphorus Magnesium TSH Free T4 10/13/19 10/13/19 10/13/19 07:21 11:45 16:20 [place] % (Auto) Seg Neutrophils % Seg Neutrophils # POC ABG pCO2 POC ABG pO2 Sodium Potassium Chloride Carbon Dioxide BUN Creatinine Glucose POC Glucose 187 H 161 H 132 H Lactic Acid Calcium Phosphorus Magnesium TSH Free T4 10/13/19 10/14/19 10/14/19 22:29 04:10 07:35 [place] % (Auto) Seg Neutrophils % Seg Neutrophils # POC ABG pCO2 POC ABG pO2 Sodium Potassium 3.2 L Chloride Carbon Dioxide BUN Creatinine 0.6 L Glucose 167 H POC Glucose 120 H 166 H Lactic Acid Calcium Phosphorus Magnesium TSH Free T4 10/14/19 10/14/19 10/15/19 12:05 21:44 05:30 [place] % (Auto) Seg Neutrophils % Seg Neutrophils # POC ABG pCO2 POC ABG pO2 Sodium Potassium 3.3 L Chloride Carbon Dioxide BUN 5 L Creatinine 0.4 L Glucose 143 H POC Glucose 125 H 123 H Lactic Acid Calcium 8.3 L Phosphorus Magnesium TSH Free T4 10/15/19 10/15/19 10/15/19 07:39 11:28 16:17 [place] % (Auto) Seg Neutrophils % Seg Neutrophils # POC ABG pCO2 POC ABG pO2 Sodium Potassium Chloride Carbon Dioxide BUN Creatinine Glucose POC Glucose 116 H 122 H 127 H Lactic Acid Calcium Phosphorus Magnesium TSH Free T4 10/15/19 10/16/19 10/16/19 22:10 04:09 07:29 [place] % (Auto) Seg Neutrophils % Seg Neutrophils # POC ABG pCO2 POC ABG pO2 Sodium Potassium Chloride Carbon Dioxide BUN 2 L Creatinine 0.5 L Glucose 163 H POC Glucose 154 H 154 H Lactic Acid Calcium Phosphorus 1.80 L Magnesium 1.40 L TSH Free T4 10/16/19 10/16/19 10/16/19 11:20 16:06 16:25 [place] % (Auto) Seg Neutrophils % Seg Neutrophils # POC ABG pCO2 34.8 L POC ABG pO2 76 L Sodium Potassium Chloride Carbon Dioxide BUN Creatinine Glucose POC Glucose 156 H 125 H Lactic Acid Calcium Phosphorus Magnesium TSH Free T4 10/16/19 10/17/19 10/17/19 22:02 05:07 07:28 [place] % (Auto) Seg Neutrophils % Seg Neutrophils # POC ABG pCO2 POC ABG pO2 Sodium Potassium Chloride Carbon Dioxide 20 L BUN 2 L Creatinine 0.4 L Glucose 128 H POC Glucose 144 H 141 H Lactic Acid Calcium Phosphorus Magnesium TSH Free T4 10/17/19 10/18/19 10/18/19 16:56 05:01 07:53 [place] % (Auto) Seg Neutrophils % Seg Neutrophils # POC ABG pCO2 POC ABG pO2 Sodium Potassium Chloride Carbon Dioxide BUN 4 L Creatinine 0.5 L Glucose 132 H POC Glucose 190 H 148 H Lactic Acid Calcium Phosphorus Magnesium TSH Free T4 10/18/19 10/18/19 10/19/19 11:42 16:47 00:45 [place] % (Auto) Seg Neutrophils % Seg Neutrophils # POC ABG pCO2 POC ABG pO2 Sodium Potassium Chloride Carbon Dioxide BUN Creatinine Glucose POC Glucose 143 H 135 H 128 H Lactic Acid Calcium Phosphorus Magnesium TSH Free T4 10/19/19 05:36 [place] % (Auto) Seg Neutrophils % Seg Neutrophils # POC ABG pCO2 POC ABG pO2 Sodium Potassium Chloride Carbon Dioxide BUN Creatinine Glucose POC Glucose 153 H Lactic Acid Calcium Phosphorus Magnesium TSH Free T4 Allied health notes reviewed: nursing
--- NOTE | 2019-10-19 15:43 | Progress Note ---
Assessment and Plan Assessment and plan: Patient is a 79-year-old woman from assisted living facility with a history of dementia, hypertension, thyroid disorder, diabetes mellitus type 2 and DNR at her assisted living facility who presented to [facility] ED with choking and having trouble breathing. * pChest x-ray no acute findings Acute metabolic encephalopathy supportive care, CT head neg, given dementia- daughter is not interested in MRI, she has refused obtain EEG, neuro consult appreciated, likely metabolic due to dehydration at baseline, she is non verbal, but is able to eat and is fully dependent, currently she only opens eyes occasionally and has not woken up Acute hypoxic Respiratory failure now weaned to NC repeat CXR is again negative, based on her clinical presentation is most likely that the patient aspirated. Discontinue antibiotics Hyperthyroidism TFT show elevated TSH at 50 and low free T4 at 0.4. When patient able to tolerate p.o, her methimazole dose will be reduced sacral excoriations -wound care benadryl for itching Bruxism Ativan as needed CHEN/hypernatremia,dehydration, vasomotor nephropathy treated with IV fluids Hypokalemia Replete IV Dysphagia is chronic and worseing, daughter agreeable to PEG, Gi consulted DVT prophylaxis with Lovenox DNR/DNI PEG today, observe overnight, to make sure tube feeding is ok, d/w daughter Ms. Lara Anel at bedside Disposition: continue inpatient care, unable to go back to [facility] assisted living with PEG tube so awaiting new placement/insurance authorization. History Interval history: Patient was seen and examined. Follow-up on current diagnosis FTT. No overnight events reported to me. Imaging, nursing note, chart, labs and old chart reviewed. Saw Daughter at Nursing station early this morning. Hospitalist Physical - Physical exam Narrative exam: Gen: chronically disable, awake, not orienteated HEENT: NCAT, EOMI, PERRL, OP Clear Neck: supple, no adenopathy, no thyromegaly, no JVD CVS/Heart: RRR, normal S1S2, pulses present bilaterally Chest/Lungs: CTA B, Symmetrical chest expansion, good air entry bilaterally GI/Abdomen: soft, NTND, good bowel sounds, no guarding or rebound /Bladder: no suprapubic tenderness, no CVA or paraspinal tenderness Extermity/Skin: no c/c/e, no obvious rash MSK: contracted ex Neuro: CN 2-12 grossly intact, doesn't follow commands Psych: calm but confused - Constitutional Vitals: Temp Pulse Resp BP Pulse Ox 98.7 F 89 20 106/64 96 10/19/19 13:52 10/19/19 13:52 10/19/19 13:52 10/19/19 13:52 10/19/19 13:52 General appearance: Absent: mild distress Results - Labs CBC & Chem 7: 10/10/19 05:41 10/18/19 05:01 Labs: Laboratory Last Values WBC 10.8 K/mm3 (4.5-11.0) 10/10/19 05:41 RBC 3.84 M/mm3 (3.65-5.03) 10/10/19 05:41 Hgb 11.6 gm/dl (10.1-14.3) 10/10/19 05:41 Hct 36.1 % (30.3-42.9) 10/10/19 05:41 MCV 94 fl (79-97) 10/10/19 05:41 MCH 30 pg (28-32) 10/10/19 05:41 MCHC 32 % (30-34) 10/10/19 05:41 RDW 14.5 % (13.2-15.2) 10/10/19 05:41 Plt Count 361 K/mm3 (140-440) 10/10/19 05:41 Lymph % (Auto) 17.6 % (13.4-35.0) 10/10/19 05:41 [place] % (Auto) 6.9 % (0.0-7.3) 10/10/19 05:41 Eos % (Auto) 0.4 % (0.0-4.3) 10/10/19 05:41 Baso % (Auto) 0.6 % (0.0-1.8) 10/10/19 05:41 Lymph # 1.9 K/mm3 (1.2-5.4) 10/10/19 05:41 [place] # 0.7 K/mm3 (0.0-0.8) 10/10/19 05:41 Eos # 0.0 K/mm3 (0.0-0.4) 10/10/19 05:41 Baso # 0.1 K/mm3 (0.0-0.1) 10/10/19 05:41 Seg Neutrophils % 74.5 % (40.0-70.0) H 10/10/19 05:41 Seg Neutrophils # 8.1 K/mm3 (1.8-7.7) H 10/10/19 05:41 PT 12.8 Sec. (12.2-14.9) 10/17/19 05:07 INR 0.97 (0.87-1.13) 10/17/19 05:07 APTT 25.1 Sec. (24.2-36.6) 10/09/19 10:48 POC ABG pH 7.442 (7.35-7.45) 10/16/19 16:06 POC ABG pCO2 34.8 (35-45) L 10/16/19 16:06 POC ABG pO2 76 (80-105) L 10/16/19 16:06 POC ABG HCO3 23.7 (22-26 mml/L) 10/16/19 16:06 POC ABG Total CO2 25 (23-27mmol/L) 10/16/19 16:06 POC ABG O2 Sat 96 10/16/19 16:06 POC ABG Base Excess 0 ((-2) - (+3)mmol/L) 10/16/19 16:06 FiO2 21 % 10/16/19 16:06 Sodium 138 mmol/L (137-145) 10/18/19 05:01 Potassium 4.0 mmol/L (3.6-5.0) 10/18/19 05:01 Chloride 104.8 mmol/L (98-107) 10/18/19 05:01 Carbon Dioxide 23 mmol/L (22-30) 10/18/19 05:01 Anion Gap 14 mmol/L 10/18/19 05:01 BUN 4 mg/dL (7-17) L 10/18/19 05:01 Creatinine 0.5 mg/dL (0.7-1.2) L 10/18/19 05:01 Estimated GFR > 60 ml/min 10/18/19 05:01 BUN/Creatinine Ratio 8 % 10/18/19 05:01 Glucose 132 mg/dL (65-100) H 10/18/19 05:01 POC Glucose 132 (70-105) H 10/19/19 11:54 Lactic Acid 1.00 mmol/L (0.7-2.0) 10/12/19 15:17 Calcium 8.7 mg/dL (8.4-10.2) 10/18/19 05:01 Phosphorus 1.80 mg/dL (2.5-4.5) L 10/16/19 04:09 Magnesium 1.40 mg/dL (1.7-2.3) L 10/16/19 04:09 Total Bilirubin 0.60 mg/dL (0.1-1.2) 10/09/19 10:48 AST 18 units/L (5-40) 10/09/19 10:48 ALT 21 units/L (7-56) 10/09/19 10:48 Alkaline Phosphatase 81 units/L (35-129) 10/09/19 10:48 Total Creatine Kinase 91 units/L (30-135) 10/09/19 10:48 Total Protein 8.0 g/dL (6.3-8.2) 10/09/19 10:48 Albumin 4.1 g/dL (3.9-5) 10/09/19 10:48 Albumin/Globulin Ratio 1.1 % 10/09/19 10:48 TSH 50.740 mlU/mL (0.270-4.200) H 10/09/19 10:48 Free T4 0.40 ng/dL (0.76-1.46) L 10/09/19 10:48 Urine Color Yellow (Yellow) 10/09/19 12:00 Urine Turbidity Slightly-cloudy (Clear) 10/09/19 12:00 Urine pH 5.0 (5.0-7.0) 10/09/19 12:00 Ur Specific [place] 1.017 (1.003-1.030) 10/09/19 12:00 Urine Protein 30 mg/dl mg/dL (Negative) 10/09/19 12:00 Urine Glucose (UA) Neg mg/dL (Negative) 10/09/19 12:00 Urine Ketones Neg mg/dL (Negative) 10/09/19 12:00 Urine Blood Neg (Negative) 10/09/19 12:00 Urine Nitrite Neg (Negative) 10/09/19 12:00 Urine Bilirubin Neg (Negative) 10/09/19 12:00 Urine Urobilinogen < 2.0 mg/dL (<2.0) 10/09/19 12:00 Ur Leukocyte Esterase Neg (Negative) 10/09/19 12:00 Urine WBC (Auto) 1.0 /HPF (0.0-6.0) 10/09/19 12:00 Urine RBC (Auto) 2.0 /HPF (0.0-6.0) 10/09/19 12:00 U Epithel Cells (Auto) 4.0 /HPF (0-13.0) 10/09/19 12:00 Urine Mucus Few /HPF 10/09/19 12:00 Active Medications - Current Medications Current Medications: Generic Name Dose Route Start Last Admin Trade Name Freq PRN Reason Stop Dose Admin Albuterol 2.5 mg 10/09/19 12:55 Proventil IH Q3HRT PRN Shortness Of Breath Aspirin 81 mg 10/10/19 10:00 10/19/19 09:39 Halfprin Ec PO 81 mg DAILY LEONARDO Administration Calcium Carbonate/Glycine 1,250 mg 10/10/19 10:00 10/19/19 09:38 Oscal PO 1,250 mg QDAY LEONARDO Administration Dextrose 50 ml 10/09/19 14:07 D50w (25gm) Syringe IV Q30MIN PRN Hypoglycemia Protocol Donepezil HCl 10 mg 10/10/19 10:00 10/19/19 09:39 Aricept PO 10 mg DAILY LEONARDO Administration Enoxaparin Sodium 40 mg 10/15/19 22:00 10/18/19 21:46 Enoxaparin SUB-Q 40 mg QDAY@2200 LEONARDO Administration Famotidine 20 mg 10/12/19 14:00 10/19/19 09:39 Pepcid PO 20 mg QDAY LEONARDO Administration Potassium Chloride 20 meq/ 1,010 mls @ 100 mls/hr 10/15/19 13:00 10/19/19 02:06 Dextrose IV 100 mls/hr DIRECT LEONARDO Administration Insulin Human Lispro 0 unit 10/19/19 01:00 10/19/19 12:00 Humalog SUB-Q Not Given Q6HR LEONARDO Protocol Loratadine 10 mg 10/10/19 10:00 10/19/19 09:39 Claritin PO 10 mg DAILY LEONARDO Administration Lorazepam 0.25 mg 10/11/19 14:29 Ativan IV Q4H PRN agitation/grinding Memantine 5 mg 10/09/19 22:00 10/19/19 09:39 Memantine PO 5 mg BID LEONARDO Administration Methimazole 5 mg 10/10/19 22:00 10/19/19 13:50 Tapazole PO 5 mg Q8HR LEONARDO Administration Pravastatin Sodium 80 mg 10/10/19 10:00 10/19/19 09:38 Pravachol PO 80 mg QDAY LEONARDO Administration Sodium Chloride 10 ml 10/09/19 22:00 10/19/19 09:39 Sodium Chloride Flush Syringe 10 Ml IV 10 ml BID LEONARDO Administration Sodium Chloride 10 ml 10/09/19 12:55 Sodium Chloride Flush Syringe 10 Ml IV PRN PRN LINE FLUSH Nutrition/Malnutrition Assess - Dietary Evaluation Nutrition/Malnutrition Findings: Nutrition Notes Start: 10/10/19 10:31 Freq: Status: Active Protocol: Document 10/19/19 10:51 KS (Rec: 10/19/19 10:59 [facility]-[email or web address]) Co-Sign 10/19/19 10:51 LP Nutrition Notes Initial or Follow up Reassessment Current Diagnosis Decubitus(Pressure Ulcer), Diabetes,Hypertension, Respiratory Failure Other Pertinent Diagnosis Sacral wound, dysphagia, dementia, encephalopathy, debility, pneu Current Diet Glucerna 1.2 at 40mL/hr Labs/Tests BUN 4 CR 0.5 Glu 135 Pertinent Medications Oscal Humalog Height 4 ft 6 in Weight 60.2 kg [place] Body Weight (kg) 31.81 BMI 32.0 Subjective/Other Information Glucerna 1.2 observed running at 30mL/hr. Pt did not respond to questions at time of visit . Per chart, pt is tolerating TF. Percent of energy/protein needs met: 79%/43% Burn Absent Trauma Absent #2 Nutrition Diagnosis Inadequate oral intake Diagnosis Progress(for reassessment Continues documentation) #1 Nutrition Diagnosis Increased nutrient needs ( specify in comment below) Diagnosis Progress(for reassessment Continues documentation) Is patient on ventilator? No Is Patient Ambulatory and/or Out of Bed No REE-([place]-[facility] Jeor-confined to bed) [phone] Calculation Used for Recommendations [facility] Additional Notes Protein: 58-69g (1.25-1.5g/kg) AdjBw 46kg pt with wound Fluid: 1 ml/kcal or per MD Nutrition Intervention Change Diet Order: Continue TF Nutrition Support: Glucerna 1.2 at 40 ml/hr Flush 65 ml q4hr Kcal 1,152 Protein (gm) 57 Fluid (mL) 773 Goal #1 Reach TF goal rate Goal #2 Tolerate TF Anticipated Discharge Needs: TF Follow-Up By: 10/23/19 Additional Comments F/U for TF tolerance
--- NOTE | 2019-10-19 15:55 | Discharge Summary ---
Providers - Providers Date of Admission: 10/09/19 12:55 Date of discharge: 10/20/19 Attending physician: PETER ARAMBULA 10/10/19 14:55 Consult to Physician [CONS] Routine Comment: Consulting Provider: JORGE HORNER Physician Instructions: Reason For Exam: ams 10/11/19 10:49 Consult to Physician [CONS] Routine Comment: Consulting Provider: ARYAN ZAMORA Physician Instructions: Reason For Exam: hypoxia 10/13/19 00:48 Consult to Wound/ET Nurse [CONS] Routine Reason For Exam: wound eval 10/15/19 10:38 Consult to Physician [CONS] Routine Comment: called office Consulting Provider: DAVID LUCIANO Physician Instructions: Reason For Exam: need peg tube 10/17/19 14:59 Consult to Dietitian/Nutrition [CONS] Routine Physician Instructions: Reason For Exam: Reason for Consult: Write/Manage Tube Feeding 10/18/19 15:31 Occupational Therapy Evaluate and Treat [CONS] Routine Comment: Reason For Exam: Debility Physical Therapy Evaluation and Treat [CONS] Routine Comment: Reason For Exam: Debility Primary care physician: MADINA BENTON Hospitalization Condition: Stable Hospital course: Patient is a 79-year-old woman from assisted living facility with a history of dementia, hypertension, thyroid disorder, diabetes mellitus type 2 and DNR at her assisted living facility who presented to [facility] ED with choking and having trouble breathing. * pChest x-ray no acute findings Acute metabolic encephalopathy supportive care, CT head neg, given dementia- daughter is not interested in MRI, she has refused obtain EEG, neuro consult appreciated, likely metabolic due to dehydration at baseline, she is non verbal, but is able to eat and is fully dependent, currently she only opens eyes occasionally and has not woken up Acute hypoxic Respiratory failure now weaned to NC repeat CXR is again negative, based on her clinical presentation is most likely that the patient aspirated. Discontinue antibiotics Hyperthyroidism TFT show elevated TSH at 50 and low free T4 at 0.4. When patient able to tolerate p.o, her methimazole dose will be reduced sacral excoriations -wound care benadryl for itching Bruxism Ativan as needed CHEN/hypernatremia,dehydration, vasomotor nephropathy treated with IV fluids Hypokalemia Replete IV Dysphagia is chronic and worseing, daughter agreeable to PEG, Gi consulted DVT prophylaxis with Lovenox DNR/DNI PEG today, observe overnight, to make sure tube feeding is ok, d/w daughter Ms. Jane Tam Disposition: [place] [facility] Disposition: [id number] Time spent for discharge: 36 minutes Core Measure Documentation - Palliative Care Palliative Care/ Comfort Measures: Not Applicable - Core Measures Any of the following diagnoses?: none - VTE Discharge Requirements Deep Vein Thrombosis/Pulmonary Embolism Present on Admission: No Has pt received <5 days of overlap therapy or INR<2.0: No Anticoagulant overlap therapy prescribed at discharge: No Contraindication No Overlap Therapy order at DC: Not Indicated Exam - Physical Exam Narrative exam: Gen: chronically disable, awake, not orienteated HEENT: NCAT, EOMI, PERRL, OP Clear Neck: supple, no adenopathy, no thyromegaly, no JVD CVS/Heart: RRR, normal S1S2, pulses present bilaterally Chest/Lungs: CTA B, Symmetrical chest expansion, good air entry bilaterally GI/Abdomen: soft, NTND, good bowel sounds, no guarding or rebound /Bladder: no suprapubic tenderness, no CVA or paraspinal tenderness Extermity/Skin: no c/c/e, no obvious rash MSK: contracted ex Neuro: CN 2-12 grossly intact, doesn't follow commands Psych: calm but confused - Constitutional Vitals: Temp Pulse Resp BP Pulse Ox 98.7 F 89 20 106/64 96 10/19/19 13:52 10/19/19 13:52 10/19/19 13:52 10/19/19 13:52 10/19/19 13:52 Plan Activity: up only with assistance, fall precautions, other (no strenous activity, frequent 2 hours turns off buttock) Diet: other (Initiate Glucerna 1.2 at 10mL/hr and increase by 10mL q8hrs until goal rate of 40mL/hr is reached. ) Special Instructions: record daily weights, record daily BP diary Follow up with: MADINA BENTON [Other] - 7 Days
[2019-10-19] MEDS: ENOXAPARIN 40 MG/0.4 ML INJ SUB-Q SCH (21:46)
[2019-10-20] MEDS: INSULIN LISPRO 100 UNIT/ML SUB-Q SCH ×3 (00:05→12:54)
[2019-10-20] MEDS: methIMAzole 5 MG TAB PO SCH (05:53)
[2019-10-20 08:21] VITALS: BP 97/46
[2019-10-20] MEDS: MEMANTINE 5 MG TAB PO SCH (10:08)
[2019-10-20] MEDS: PRAVASTATIN 80 MG TAB PO SCH (10:08)
[2019-10-20] MEDS: LORATADINE (NF) 10 MG TAB PO SCH (10:08)
[2019-10-20] MEDS: ASPIRIN EC 81 MG TAB PO SCH (10:08)
[2019-10-20] MEDS: CALCIUM CARBONATE 1250 MG TAB PO SCH (10:08)
[2019-10-20] MEDS: DONEPEZIL 10 MG TAB PO SCH (10:08)
[2019-10-20] MEDS: FAMOTIDINE 20 MG TAB PO SCH (10:08)
--- NOTE | 2019-10-20 13:19 | Progress Note ---
Assessment and Plan Assessment and plan: Patient is a 79-year-old woman from assisted living facility with a history of dementia, hypertension, thyroid disorder, diabetes mellitus type 2 and DNR at her assisted living facility who presented to PSYCHIATRIC ED with choking and having trouble breathing. * pChest x-ray no acute findings Acute metabolic encephalopathy supportive care, CT head neg, given dementia- daughter is not interested in MRI, she has refused obtain EEG, neuro consult appreciated, likely metabolic due to dehydration at baseline, she is non verbal, but is able to eat and is fully dependent, currently she only opens eyes occasionally and has not woken up Acute hypoxic Respiratory failure now weaned to NC repeat CXR is again negative, based on her clinical presentation is most likely that the patient aspirated. Discontinue antibiotics Hyperthyroidism TFT show elevated TSH at 50 and low free T4 at 0.4. When patient able to tolerate p.o, her methimazole dose will be reduced sacral excoriations -wound care benadryl for itching Bruxism Ativan as needed CHEN/hypernatremia,dehydration, vasomotor nephropathy treated with IV fluids Hypokalemia Replete IV Dysphagia is chronic and worseing, daughter agreeable to PEG, Gi consulted DVT prophylaxis with Lovenox DNR/DNI PEG today, observe overnight, to make sure tube feeding is ok, d/w daughter Ms. Lara Anel at bedside Disposition: continue inpatient care, unable to go back to [facility] assisted living with PEG tube so awaiting new placement/insurance authorization. History Interval history: Patient was seen and examined. Follow-up on current diagnosis FTT. No overnight events reported to me. Imaging, nursing note, chart, labs and old chart reviewed. Saw Daughter at Nursing station early this morning. Hospitalist Physical - Physical exam Narrative exam: Gen: chronically disable, awake, not orienteated HEENT: NCAT, EOMI, PERRL, OP Clear Neck: supple, no adenopathy, no thyromegaly, no JVD CVS/Heart: RRR, normal S1S2, pulses present bilaterally Chest/Lungs: CTA B, Symmetrical chest expansion, good air entry bilaterally GI/Abdomen: soft, NTND, good bowel sounds, no guarding or rebound /Bladder: no suprapubic tenderness, no CVA or paraspinal tenderness Extermity/Skin: no c/c/e, no obvious rash MSK: contracted ex Neuro: CN 2-12 grossly intact, doesn't follow commands Psych: calm but confused - Constitutional Vitals: Temp Pulse Resp BP Pulse Ox 97.4 F L 86 18 97/46 96 10/20/19 07:23 10/20/19 10:00 10/20/19 07:23 10/20/19 07:23 10/20/19 08:02 General appearance: Absent: mild distress Results - Labs CBC & Chem 7: 10/10/19 05:41 10/18/19 05:01 Labs: Laboratory Last Values WBC 10.8 K/mm3 (4.5-11.0) 10/10/19 05:41 RBC 3.84 M/mm3 (3.65-5.03) 10/10/19 05:41 Hgb 11.6 gm/dl (10.1-14.3) 10/10/19 05:41 Hct 36.1 % (30.3-42.9) 10/10/19 05:41 MCV 94 fl (79-97) 10/10/19 05:41 MCH 30 pg (28-32) 10/10/19 05:41 MCHC 32 % (30-34) 10/10/19 05:41 RDW 14.5 % (13.2-15.2) 10/10/19 05:41 Plt Count 361 K/mm3 (140-440) 10/10/19 05:41 Lymph % (Auto) 17.6 % (13.4-35.0) 10/10/19 05:41 [place] % (Auto) 6.9 % (0.0-7.3) 10/10/19 05:41 Eos % (Auto) 0.4 % (0.0-4.3) 10/10/19 05:41 Baso % (Auto) 0.6 % (0.0-1.8) 10/10/19 05:41 Lymph # 1.9 K/mm3 (1.2-5.4) 10/10/19 05:41 [place] # 0.7 K/mm3 (0.0-0.8) 10/10/19 05:41 Eos # 0.0 K/mm3 (0.0-0.4) 10/10/19 05:41 Baso # 0.1 K/mm3 (0.0-0.1) 10/10/19 05:41 Seg Neutrophils % 74.5 % (40.0-70.0) H 10/10/19 05:41 Seg Neutrophils # 8.1 K/mm3 (1.8-7.7) H 10/10/19 05:41 PT 12.8 Sec. (12.2-14.9) 10/17/19 05:07 INR 0.97 (0.87-1.13) 10/17/19 05:07 APTT 25.1 Sec. (24.2-36.6) 10/09/19 10:48 POC ABG pH 7.442 (7.35-7.45) 10/16/19 16:06 POC ABG pCO2 34.8 (35-45) L 10/16/19 16:06 POC ABG pO2 76 (80-105) L 10/16/19 16:06 POC ABG HCO3 23.7 (22-26 mml/L) 10/16/19 16:06 POC ABG Total CO2 25 (23-27mmol/L) 10/16/19 16:06 POC ABG O2 Sat 96 10/16/19 16:06 POC ABG Base Excess 0 ((-2) - (+3)mmol/L) 10/16/19 16:06 FiO2 21 % 10/16/19 16:06 Sodium 138 mmol/L (137-145) 10/18/19 05:01 Potassium 4.0 mmol/L (3.6-5.0) 10/18/19 05:01 Chloride 104.8 mmol/L (98-107) 10/18/19 05:01 Carbon Dioxide 23 mmol/L (22-30) 10/18/19 05:01 Anion Gap 14 mmol/L 10/18/19 05:01 BUN 4 mg/dL (7-17) L 10/18/19 05:01 Creatinine 0.5 mg/dL (0.7-1.2) L 10/18/19 05:01 Estimated GFR > 60 ml/min 10/18/19 05:01 BUN/Creatinine Ratio 8 % 10/18/19 05:01 Glucose 132 mg/dL (65-100) H 10/18/19 05:01 POC Glucose 167 (70-105) H 10/20/19 11:33 Lactic Acid 1.00 mmol/L (0.7-2.0) 10/12/19 15:17 Calcium 8.7 mg/dL (8.4-10.2) 10/18/19 05:01 Phosphorus 1.80 mg/dL (2.5-4.5) L 10/16/19 04:09 Magnesium 1.40 mg/dL (1.7-2.3) L 10/16/19 04:09 Total Bilirubin 0.60 mg/dL (0.1-1.2) 10/09/19 10:48 AST 18 units/L (5-40) 10/09/19 10:48 ALT 21 units/L (7-56) 10/09/19 10:48 Alkaline Phosphatase 81 units/L (35-129) 10/09/19 10:48 Total Creatine Kinase 91 units/L (30-135) 10/09/19 10:48 Total Protein 8.0 g/dL (6.3-8.2) 10/09/19 10:48 Albumin 4.1 g/dL (3.9-5) 10/09/19 10:48 Albumin/Globulin Ratio 1.1 % 10/09/19 10:48 TSH 50.740 mlU/mL (0.270-4.200) H 10/09/19 10:48 Free T4 0.40 ng/dL (0.76-1.46) L 10/09/19 10:48 Urine Color Yellow (Yellow) 10/09/19 12:00 Urine Turbidity Slightly-cloudy (Clear) 10/09/19 12:00 Urine pH 5.0 (5.0-7.0) 10/09/19 12:00 Ur Specific [place] 1.017 (1.003-1.030) 10/09/19 12:00 Urine Protein 30 mg/dl mg/dL (Negative) 10/09/19 12:00 Urine Glucose (UA) Neg mg/dL (Negative) 10/09/19 12:00 Urine Ketones Neg mg/dL (Negative) 10/09/19 12:00 Urine Blood Neg (Negative) 10/09/19 12:00 Urine Nitrite Neg (Negative) 10/09/19 12:00 Urine Bilirubin Neg (Negative) 10/09/19 12:00 Urine Urobilinogen < 2.0 mg/dL (<2.0) 10/09/19 12:00 Ur Leukocyte Esterase Neg (Negative) 10/09/19 12:00 Urine WBC (Auto) 1.0 /HPF (0.0-6.0) 10/09/19 12:00 Urine RBC (Auto) 2.0 /HPF (0.0-6.0) 10/09/19 12:00 U Epithel Cells (Auto) 4.0 /HPF (0-13.0) 10/09/19 12:00 Urine Mucus Few /HPF 10/09/19 12:00 Active Medications - Current Medications Current Medications: Generic Name Dose Route Start Last Admin Trade Name Freq PRN Reason Stop Dose Admin Albuterol 2.5 mg 10/09/19 12:55 Proventil IH Q3HRT PRN Shortness Of Breath Aspirin 81 mg 10/10/19 10:00 10/20/19 10:08 Halfprin Ec PO 81 mg DAILY LEONARDO Administration Calcium Carbonate/Glycine 1,250 mg 10/10/19 10:00 10/20/19 10:08 Oscal PO 1,250 mg QDAY LEONARDO Administration Dextrose 50 ml 10/09/19 14:07 D50w (25gm) Syringe IV Q30MIN PRN Hypoglycemia Protocol Donepezil HCl 10 mg 10/10/19 10:00 10/20/19 10:08 Aricept PO 10 mg DAILY LEONARDO Administration Enoxaparin Sodium 40 mg 10/15/19 22:00 10/19/19 21:46 Enoxaparin SUB-Q 40 mg QDAY@2200 LEONARDO Administration Famotidine 20 mg 10/12/19 14:00 10/20/19 10:08 Pepcid PO 20 mg QDAY LEONARDO Administration Potassium Chloride 20 meq/ 1,010 mls @ 100 mls/hr 10/15/19 13:00 10/19/19 02:06 Dextrose IV 100 mls/hr DIRECT LEONARDO Administration Insulin Human Lispro 0 unit 10/19/19 01:00 10/20/19 12:54 Humalog SUB-Q 1 unit Q6HR LEONARDO Administration Protocol Loratadine 10 mg 10/10/19 10:00 10/20/19 10:08 Claritin PO 10 mg DAILY LEONARDO Administration Lorazepam 0.25 mg 10/11/19 14:29 Ativan IV Q4H PRN agitation/grinding Memantine 5 mg 10/09/19 22:00 10/20/19 10:08 Memantine PO 5 mg BID LEONARDO Administration Methimazole 5 mg 10/10/19 22:00 10/20/19 05:53 Tapazole PO 5 mg Q8HR LEONARDO Administration Pravastatin Sodium 80 mg 10/10/19 10:00 10/20/19 10:08 Pravachol PO 80 mg QDAY LEONARDO Administration Sodium Chloride 10 ml 10/09/19 22:00 10/20/19 10:08 Sodium Chloride Flush Syringe 10 Ml IV 10 ml BID LEONARDO Administration Sodium Chloride 10 ml 10/09/19 12:55 Sodium Chloride Flush Syringe 10 Ml IV PRN PRN LINE FLUSH Nutrition/Malnutrition Assess - Dietary Evaluation Nutrition/Malnutrition Findings: Nutrition Notes Start: 10/10/19 10:31 Freq: Status: Active Protocol: Document 10/19/19 10:51 [place] (Rec: 10/19/19 10:59 [facility]-[id number]) Co-Sign 10/19/19 10:51 LP Nutrition Notes Initial or Follow up Reassessment Current Diagnosis Decubitus(Pressure Ulcer), Diabetes,Hypertension, Respiratory Failure Other Pertinent Diagnosis Sacral wound, dysphagia, dementia, encephalopathy, debility, pneu Current Diet Glucerna 1.2 at 40mL/hr Labs/Tests BUN 4 CR 0.5 Glu 135 Pertinent Medications Oscal Humalog Height 4 ft 6 in Weight 60.2 kg [place] Body Weight (kg) 31.81 BMI 32.0 Subjective/Other Information Glucerna 1.2 observed running at 30mL/hr. Pt did not respond to questions at time of visit . Per chart, pt is tolerating TF. Percent of energy/protein needs met: 79%/43% Burn Absent Trauma Absent #2 Nutrition Diagnosis Inadequate oral intake Diagnosis Progress(for reassessment Continues documentation) #1 Nutrition Diagnosis Increased nutrient needs ( specify in comment below) Diagnosis Progress(for reassessment Continues documentation) Is patient on ventilator? No Is Patient Ambulatory and/or Out of Bed No REE-([place]-St. Jeor-confined to bed) [phone] Calculation [facility]ations [facility] Additional Notes Protein: 58-69g (1.25-1.5g/kg) AdjBw 46kg pt with wound Fluid: 1 ml/kcal or per MD Nutrition Intervention Change Diet Order: Continue TF Nutrition Support: Glucerna 1.2 at 40 ml/hr Flush 65 ml q4hr Kcal 1,152 Protein (gm) 57 Fluid (mL) 773 Goal #1 Reach TF goal rate Goal #2 Tolerate TF Anticipated Discharge Needs: TF Follow-Up By: 10/23/19 Additional Comments F/U for TF tolerance
== END 2019-10-20 19:01 | DRG 177 ==
LOC: ED 10:25 → IMCU 12:55 → 2B-ACE 10-13 00:16
PROVIDERS: ADMIT Internal Medicine; ATTEND Internal Medicine
PROC: 4A033R1 Measurement of Arterial Saturation, Peripheral, Percutaneous Approach (ICD-10-PCS; 2019-10-16)
PROC: 0DH63UZ Insertion of Feeding Device into Stomach, Percutaneous Approach (ICD-10-PCS; principal; 2019-10-17)
DX: J69.0 Pneumonitis due to inhalation of food and vomit (principal); J96.01 Acute respiratory failure with hypoxia; G93.41 Metabolic encephalopathy; N17.0 Acute kidney failure with tubular necrosis; E87.2 Acidosis; R65.10 Systemic inflammatory response syndrome (SIRS) of non-infectious origin without acute organ dysfunction; E87.0 Hyperosmolality and hypernatremia; E05.90 Thyrotoxicosis, unspecified without thyrotoxic crisis or storm; I10 Essential (primary) hypertension; E11.65 Type 2 diabetes mellitus with hyperglycemia; G30.9 Alzheimer's disease, unspecified; F02.80 Dementia in other diseases classified elsewhere, unspecified severity, without behavioral disturbance, psychotic disturbance, mood disturbance, and anxiety; R13.12 Dysphagia, oropharyngeal phase; Z66 Do not resuscitate; E87.6 Hypokalemia; R13.10 Dysphagia, unspecified; S30.810A Abrasion of lower back and pelvis, initial encounter; G47.63 Sleep related bruxism; Y93.89 Activity, other specified; Y92.89 Other specified places as the place of occurrence of the external cause; Z82.49 Family history of ischemic heart disease and other diseases of the circulatory system; Z79.82 Long term (current) use of aspirin; Z79.899 Other long term (current) drug therapy; Z99.81 Dependence on supplemental oxygen; Y99.8 Other external cause status
CPT/HCPCS: 31720; 36415; 36600; 70450; 71045; 80048; 80053; 81001; 82140; 82550; 82803; 82962; 83735; 84100; 84439; 84443; 85025; 85610; 85730; 87040; 93005; 93010; 94640; 94644; 94760; G0378; A9270-GY; J0456; J0690; J0696; J1644; J1650; J1815; J2704; J3480; J7030; J7040; J7050; J7070

== ENCOUNTER 2019-10-20 15:54 | Emergency (ER) | payer MEDICARE ==
--- NOTE | 2019-10-20 17:04 | Emergency Department Report ---
ED General Adult HPI - General Chief complaint: Fever Stated complaint: ANIL Time Seen by Provider: 10/20/19 16:50 Source: EMS ( EMS documentation not available at time of chart dictation ), RN notes reviewed, old records reviewed Mode of arrival: Stretcher Limitations: Other (patient is demented. Patient is a poor historian.) - History of Present Illness Initial comments: The patient is a 79-year-old female. She comes from a local assisted living [facility] where she has a history of dementia, hypertension, thyroid disorder, type 2 diabetes, history of DO NOT RESUSCITATE, history of feeding tube. Apparently she was just discharged from the hospital earlier on today. She was brought to the group home, and she was found to have an axillary temperature of 100.5. She is sent to the ER for possible fever. Apparently, she also had "audible cr ackles." In the emergency room, the patient is demented and basically nonverbal. She does not endorse any complaints. She is not able to describe exacerbating or relieving factors. She was just discharged from this hospital earlier on today. -: This afternoon - Related Data Previous Rx's Medication Instructions Recorded Last Taken Type ALBUTEROL NEB's [Proventil 0.083% 2.5 mg IH Q3HRT PRN #30 nebu 10/19/19 Unknown Rx NEBS] Aspirin EC [Halfprin EC] 81 mg PO DAILY #30 10/19/19 10/18/14 Rx 81 Calcium Carbonate [Oscal 1250MG 1,250 mg PO QDAY #30 tablet 10/19/19 Unknown Rx TAB] Donepezil [Aricept] 10 mg PO DAILY #30 10/19/19 10/18/14 Rx 10 Famotidine [Pepcid] 20 mg PO QDAY #30 tablet 10/19/19 Unknown Rx Lispro Insulin [HumaLOG] 1 dose SUB-Q Q6HR PRN #1000 units 10/19/19 Unknown Rx Loratadine [Claritin] 10 mg PO DAILY #30 tablet 10/19/19 Unknown Rx Memantine 5 mg PO BID #30 tablet 10/19/19 Unknown Rx Pravastatin [Pravachol] 80 mg PO QDAY #30 tablet 10/19/19 Unknown Rx metFORMIN [Glucophage] 500 mg PO BID #60 10/19/19 10/18/14 Rx 500 methIMAzole [Tapazole] 5 mg PO Q8HR #90 tablet 10/19/19 Unknown Rx Allergies Allergy/AdvReac Type Severity Reaction Status Date / Time No Known Allergies Allergy Unverified 10/18/14 13:16 ED Review of Systems ROS: Stated complaint: ANIL Other details as noted in HPI Comment: Unobtainable due to pts medical conditions ED Past Medical Hx - Past Medical History Previous Medical History?: Yes Hx Hypertension: Yes Hx Diabetes: Yes Hx Psychiatric Treatment: Yes (Alzheimers, Dementia, Encehalopathy, Dysphagia,) Hx Dementia: Yes Additional medical history: Hyperlipidemia, nonverbal, puree diet, hyperthroid, - Surgical History Additional Surgical History: Hernia repair, and . - Social History Smoking Status: Unknown if ever smoked - Medications Home Medications: Home Medications Medication Instructions Recorded Confirmed Last Taken Type ALBUTEROL NEB's [Proventil 0.083% 2.5 mg IH Q3HRT PRN #30 nebu 10/19/19 Unknown Rx NEBS] Aspirin EC [Halfprin EC] 81 mg PO DAILY #30 10/19/19 10/09/19 10/18/14 Rx 81 Calcium Carbonate [Oscal 1250MG 1,250 mg PO QDAY #30 tablet 10/19/19 Unknown Rx TAB] Donepezil [Aricept] 10 mg PO DAILY #30 10/19/19 10/09/19 10/18/14 Rx 10 Famotidine [Pepcid] 20 mg PO QDAY #30 tablet 10/19/19 Unknown Rx Lispro Insulin [HumaLOG] 1 dose SUB-Q Q6HR PRN #1000 units 10/19/19 Unknown Rx Loratadine [Claritin] 10 mg PO DAILY #30 tablet 10/19/19 Unknown Rx Memantine 5 mg PO BID #30 tablet 10/19/19 Unknown Rx Pravastatin [Pravachol] 80 mg PO QDAY #30 tablet 10/19/19 Unknown Rx metFORMIN [Glucophage] 500 mg PO BID #60 10/19/19 10/09/19 10/18/14 Rx 500 methIMAzole [Tapazole] 5 mg PO Q8HR #90 tablet 10/19/19 Unknown Rx ED Physical Exam - General Limitations: Other (patient is demented. Patient in no acute distress.) General appearance: in no apparent distress - Head Head exam: Present: atraumatic, normocephalic - Eye Eye exam: Present: normal appearance, EOMI. Absent: nystagmus - ENT ENT exam: Present: normal exam, normal orophraynx, mucous membranes moist, normal external ear exam - Neck Neck exam: Present: normal inspection, full ROM. Absent: tenderness, me ningismus - Respiratory Respiratory exam: Present: rhonchi (very faint rhonchi noted in the left lower lung field.). Absent: respiratory distress - Cardiovascular Cardiovascular Exam: Present: regular rate, normal rhythm, normal heart sounds. Absent: bradycardia, tachycardia, irregular rhythm, systolic murmur, diastolic murmur, rubs, gallop - GI/Abdominal GI/Abdominal exam: Present: soft, other (there is a feeding tube noted, with no redness, pus or streaking). Absent: distended, tenderness, guarding, rebound, rigid, pulsatile mass - Rectal Rectal exam: Present: other (there is a small sacral wound noted, without redness, pus or streaking. There is brown stool noted, without any evidence of bleeding). Absent: black stool, bloody stool - Extremities Exam Extremities exam: Present: normal inspection, other (2+ pulses noted in the bilateral upper and lower extremities. There is no palpable cord. negative Homans sign. Muscular compartments are soft. The pelvis is stable.). Absent: full ROM, calf tenderness - Back Exam Back exam: Present: normal inspection. Absent: tenderness, CVA tenderness (R), CVA tenderness (L), paraspinal tenderness, vertebral tenderness - Neurological Exam Neurological exam: Present: other (the patient is awake. There is no facial droop. She is moving 4 extremities. She is nonverbal. She is demented. Detailed neurologic examination not completed secondary to patient's inability to cooperate) - Skin Skin exam: Present: warm ED Course Vital Signs 10/20/19 10/20/19 17:17 18:43 Temperature 98.3 F Pulse Rate 93 H 84 Respiratory 14 Rate Blood Pressure 152/82 152/80 [Left] O2 Sat by Pulse 98 Oximetry ED Medical Decision Making - Lab Data Result diagrams: 10/20/19 17:37 Vital Signs 10/20/19 10/20/19 17:17 18:43 Temperature 98.3 F Pulse Rate 93 H 84 Respiratory 14 Rate Blood Pressure 152/82 152/80 [Left] O2 Sat by Pulse 98 Oximetry Lab Results 10/20/19 10/20/19 Range/Units 17:03 17:37 Sodium 137 (137-145) mmol/L Potassium 4.5 (3.6-5.0) mmol/L Chloride 101.0 (98-107) mmol/L Carbon Dioxide 25 (22-30) mmol/L Anion Gap 16 mmol/L BUN 7 (7-17) mg/dL Creatinine 0.5 L (0.7-1.2) mg/dL Estimated GFR > 60 ml/min BUN/Creatinine Ratio 14 % Glucose 108 H (65-100) mg/dL Calcium 9.1 (8.4-10.2) mg/dL Magnesium 1.50 L (1.7-2.3) mg/dL Total Creatine Kinase 103 (30-135) units/L Urine Color Straw (Yellow) Urine Turbidity Clear (Clear) Urine pH 8.0 H (5.0-7.0) Ur Specific [place] 1.005 (1.003-1.030) Urine Protein <15 mg/dl (Negative) mg/dL Urine Glucose (UA) Neg (Negative) mg/dL Urine Ketones Neg (Negative) mg/dL Urine Blood Neg (Negative) Urine Nitrite Neg (Negative) Urine Bilirubin Neg (Negative) Urine Urobilinogen < 2.0 (<2.0) mg/dL Ur Leukocyte Esterase Neg (Negative) Urine WBC (Auto) 1.0 (0.0-6.0) /HPF Urine RBC (Auto) < 1.0 (0.0-6.0) /HPF U Epithel Cells (Auto) 2.0 (0-13.0) /HPF - Radiology Data Radiology results: report reviewed, image reviewed Print Report Referring Physician: ZECHARIAH FOSTER Patient Name: KASIA MADDOX Date of : 1940 Sex: Female Report Date: 2019-10-20 Report Status: Finalized Findings [address] [address] XRay Report Signed Patient: KASIA MADDOX MR#: [id number] : 1940 Acct:[id number] Age/Sex: 79 / F ADM Date: 10/20/19 Loc: ED Attending Dr: Ordering Physician: ZECHARIAH FOSTER MD Date of Service: 10/20/19 Procedure(s): XR chest 1V ap Accession Number(s): [id number] cc: ZECHARIAH FOSTER MD Fluoro Time In Minutes: CHEST 1 VIEW 10/20/2019 5:10 PM INDICATION / CLINICAL INFORMATION: cough rhonchi. COMPARISON: 10/10/2019 FINDINGS: SUPPORT DEVICES: None. HEART / MEDIASTINUM: Normal heart size. Atherosclerosis in the thoracic aorta. LUNGS / PLEURA: There has been development of left lower lobe atelectasis since the prior study. No pneumothorax. ADDITIONAL FINDINGS: No significant additional findings. IMPRESSION: 1. Interval development of left lower lobe atelectasis most likely secondary to mucous plug compared with 10/10/2019. Signer Name: Chris Tavares MD Signed: 10/20/2019 6:11 PM Workstation Name: [id number] Transcribed By: TYRA Dictated By: Chris Tavares MD Electronically Authenticated By: Chris Tavares MD Signed Date/Time: 10/20/191810 DD/ 09 - Medical Decision Making Differential diagnosis, including but not limited to: Bronchitis, bronchiectasis, pneumonia, urinary tract infection Assessment and plan: 79-year-old female, sent to the emergency room for an axillary temperature of 100.5, and documentation of crackles. In the emergency room, her rectal temperature is 98.5 degrees. X-ray of the chest shows no pneumonia. She may have some atelectatic changes, likely secondary to multiple factors. There is no objective indication at this time of the patient has an acute bacterial infection. She has been resting comfortable FOR hours, and in no acute distress. She was just discharged from the hospital earlier on today. Hypomagnesemia addressed by giving magnesium through feeding tube. The patient does not appear to have an emergent medical condition at this time. Patient suitable for discharge back to [facility] Critical care attestation.: If time is entered above; I have spent that time in minutes in the direct care of this critically ill patient, excluding procedure time. ED Disposition Clinical Impression: Dementia, General medical exam Disposition: DC/TX-70 ANOTHER TYPE HLTHCARE Is pt being admited?: No Does the pt Need Aspirin: No Condition: Stable Additional Instructions: Continue outpatient medications, including the albuterol that was prescribed for the patient yesterday. Recommend keeping head of bed elevated, and having home chest physiotherapy performed, as often as as needed, at the group home. Cultures were sent today, and results will be available in the next 3-5 days. Have your primary care doctor contact the medical records department to obtain culture results. Return to the emergency room right away with new, worsening or different symptoms, or symptoms not present on the initial emergency room evaluation. Referrals: JAMIE ROBB MD [Staff Physician] - 3-5 Days Time of Disposition: 20:00 (BACK TO group home)
[2019-10-20 18:10] LABS: BUN/Creatinine Ratio 14; Blood Urea Nitrogen 7 mg/dL (7-17); Calcium 9.1 mg/dL (8.4-10.2); Hemolysis Index 7
--- NOTE | 2019-10-20 18:15 | XRay Report ---
CHEST 1 VIEW 10/20/2019 5:10 PM INDICATION / CLINICAL INFORMATION: cough rhonchi. COMPARISON: 10/10/2019 FINDINGS: SUPPORT DEVICES: None. HEART / MEDIASTINUM: Normal heart size. Atherosclerosis in the thoracic aorta. LUNGS / PLEURA: There has been development of left lower lobe atelectasis since the prior study. No p neumothorax. ADDITIONAL FINDINGS: No significant additional findings. IMPRESSION: 1. Interval development of left lower lobe atelectasis most likely secondary to mucous plug compared with 10/10/2019. Signer Name: Chris Tavares MD Signed: 10/20/2019 6:11 PM Workstation Name: [id number]
[2019-10-20 18:53] LABS: Bilirubin,Urine NEG (Negative); Blood,Urine NEG (Negative); Color,Urine Straw (Yellow); Protein,Urine <15 mg/dL mg/dL (Negative); RBC,Urine < 1.0 /HPF (0.0-6.0); Urobilinogen,Urine < 2.0 mg/dL (<2.0)
[2019-10-20] MEDS ORDERED: MAGNESIUM OXIDE 400 MG TAB PO STA (19:05)
[2019-10-20 20:26] VITALS: BP 143/86
== END 2019-10-20 20:30 | disposition other institution (70) ==
LOC: ED 15:54
DX: F03.90 Unspecified dementia, unspecified severity, without behavioral disturbance, psychotic disturbance, mood disturbance, and anxiety (principal); Z00.00 Encounter for general adult medical examination without abnormal findings; I10 Essential (primary) hypertension; E11.9 Type 2 diabetes mellitus without complications; Z98.890 Other specified postprocedural states; Z79.899 Other long term (current) drug therapy
CPT/HCPCS: 36415; 71045; 80048; 81001; 82550; 83735; 87086